=== PATIENT | female | born 1960 | race Caucasian/White ===

== ENCOUNTER 2017-11-18 16:26 | Emergency (ER) | payer OTHER, MEDICAID, SELFPAY ==
[2017-11-18 16:29] VITALS: BP 190/106; PULSE 93; RESP 16; TEMP 36.1; O2SAT 100; BMI 21.3
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
== END 2017-11-18 17:02 | disposition home or self-care (01) ==
PROVIDERS: Emergency Provider Nurse Practitioner; Family Provider Family Medicine; PCP Family Medicine
DX: Z71.1 Person with feared health complaint in whom no diagnosis is made (principal)
CPT/HCPCS: 99282

== ENCOUNTER → 2018-10-04 10:53 | Outpatient (CLI) | payer OTHER, MEDICAID, SELFPAY ==
--- NOTE | 2018-10-04 | DI.US.S_ITS ---
PROCEDURE: US ARTERIAL DUPLEX LE BI INDICATIONS: Bilateral leg pain, patient reports decreased pulses in the feet. TECHNIQUE: Color and pulse Doppler interrogation was performed of both lower extremity arterial systems, with image documentation. COMPARISON: [facility] [place], CR, XR FOOT 3+ VIEWS LEFT, 06/19/2018, 10:21. [facility], RG, XR FOOT 3V RIGHT, 07/28/2002, 10:39. FINDINGS: Right lower extremity: Common femoral artery: 128 cm/sec, with triphasic flow. Deep femoral artery: 72 cm/sec, with triphasic flow. Proximal superficial femoral artery: 97 cm/sec, with triphasic flow. Mid superficial femoral artery: 116 cm/sec, with triphasic flow. Distal superficial femoral artery: 66 cm/sec, with triphasic flow. Popliteal artery: Ranging from 78-100 cm/sec, with triphasic flow. Posterior tibial artery: Ranging from 93-109 cm/sec, with triphasic flow. Anterior tibial artery/dorsalis pedis: Ranging from 49-85 cm/sec, with triphasic flow. Bernal-scale imaging description: Mild calcific and soft plaque is seen through the right lower extremity arterial vasculature. No focal high-grade stenosis is found. Left lower extremity: Common femoral artery: 113 cm/sec, with triphasic flow. Deep femoral artery: 165 cm/sec, with triphasic flow. Proximal superficial femoral artery: 194 cm/sec, with triphasic flow. Mid superficial femoral artery: 104 cm/sec, with triphasic flow. Distal superficial femoral artery: 77 cm/sec, with triphasic flow. Popliteal artery: Ranging from 77-83 cm/sec, with triphasic flow. Posterior tibial artery: Ranging from 89-101 cm/sec, with triphasic flow. Anterior tibial artery/dorsalis pedis: Ranging from 48-75 cm/sec, with triphasic flow. Bernal-scale imaging description: Relatively mild calcific and soft plaque is seen throughout the left lower extremity arterial vasculature with focal stenosis causing elevated flow velocities at the proximal profunda femoris artery and also the proximal superficial femoral artery. IMPRESSION: Mild calcific and soft plaque within the lower extremity arterial vasculature bilaterally with focal stenosis producing elevated flow velocities at the profunda femoris artery and also the proximal superficial femoral artery on the left. Dictated by: Esau Pike M.D. on 10/06/2018 at 6:54 Approved by: Esau Pike M.D. on 10/06/2018 at 7:00
--- NOTE | 2018-10-04 | DI.RAD.S_ITS ---
PROCEDURE: XR CHEST 2V INDICATIONS: SHORTNESS OF BREATH TECHNIQUE: 2 views of the chest were acquired. COMPARISON: [facility], CHEST 2 VIEW, 03/29/2016, 19:21. [facility], CHEST 2 VIEW, 04/07/2012, 16:37. FINDINGS: Surgical changes and devices: None. Lungs and pleura: Lungs are clear. No pleural effusions or pneumothorax. Mediastinum: Mediastinal contours are normal. Heart size is normal. Bones and chest wall: No suspicious bony abnormalities. Soft tissues appear unremarkable. IMPRESSION: Normal for age, source of current shortness of breath symptoms is not seen. Dictated by: Esau Pike M.D. on 10/04/2018 at 12:20 Approved by: Esau Pike M.D. on 10/04/2018 at 12:20
== END ==
LOC: US 10:54 → RAD 10:56
PROVIDERS: PCP Student in an Organized Health Care Education/Training Program; Visit Provider Student in an Organized Health Care Education/Training Program
DX: I70.203 Unspecified atherosclerosis of native arteries of extremities, bilateral legs (principal); M79.605 Pain in left leg; M79.604 Pain in right leg; R06.02 Shortness of breath
CPT/HCPCS: 71046; 93925

== ENCOUNTER → 2018-10-16 08:39 | Outpatient (CLI) | payer OTHER, MEDICAID, SELFPAY ==
--- NOTE | 2018-10-16 | DI.US.S_ITS ---
PROCEDURE: US ABDOMEN COMPLETE INDICATIONS: RUQ PAIN TECHNIQUE: Real-time scanning was performed of the abdominal and retroperitoneal organs, with image documentation. COMPARISON: [facility], US, ABDOMEN COMPLETE, 07/30/2006, 17:16. FINDINGS: Liver: Liver is normal in size and homogeneous in echotexture. Gallbladder: No findings of gallstones or sludge are seen. The gallbladder wall is not thickened, measuring 3 mm or less. No specific pericholecystic fluid is seen. The sonographic Nguyen sign is negative. Biliary ducts: Intrahepatic bile ducts are non-dilated. Extrahepatic bile duct caliber measures 5 mm. Normal is 6-7 mm or less in diameter, or 10 mm or less post-cholecystectomy. Pancreas: Visualized portions of the pancreas are sonographically normal. Spleen: Spleen is normal in size and homogeneous in echotexture. An accessory spleen is incidentally noted. Kidneys: Kidneys are normal in size and echotexture. Right kidney measures 11.8 cm long; left kidney measures 11.1 cm long. No hydronephrosis or nephrolithiasis. No solid masses. Aorta: Visualized aorta is normal in caliber at less than 3 cm. Iliacs: Proximal common iliac arteries are normal in caliber at less than 2.5 cm. IVC: Intrahepatic inferior vena cava is patent. Miscellaneous: No free abdominal fluid. IMPRESSION: The gallbladder demonstrates a normal sonographic appearance. No biliary dilatation is seen. Dictated by: Isaac Zuniga M.D. on 10/16/2018 at 9:10 Approved by: Isaac Zuniga M.D. on 10/16/2018 at 9:11
== END ==
PROVIDERS: PCP Student in an Organized Health Care Education/Training Program; Visit Provider Student in an Organized Health Care Education/Training Program
DX: R10.11 Right upper quadrant pain (principal)
CPT/HCPCS: 76700

== ENCOUNTER 2018-12-31 17:23 | Emergency (ER) | payer OTHER, MEDICAID, SELFPAY ==
[2018-12-31 17:55] VITALS: BP 170/98; PULSE 95; RESP 16; TEMP 36.6; O2SAT 95; BMI 20.9
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
[2018-12-31] MEDS: TRAMADOL 50 MG PREPACK 1 BOTTLE MISC (21:19)
[2018-12-31 21:31] VITALS: BP 174/110; PULSE 92; RESP 18; O2SAT 97
--- NOTE | 2018-12-31 21:31 | PC.NURSE ---
Complains of right rib area pain. Pain worsens with deep breaths and movement. Patient splinting the area when moving around.
== END 2018-12-31 21:32 | disposition home or self-care (01) ==
PROVIDERS: Emergency Provider Emergency Medicine; PCP Student in an Organized Health Care Education/Training Program
DX: S22.41XA Multiple fractures of ribs, right side, initial encounter for closed fracture (principal); M54.89 Other dorsalgia; M25.511 Pain in right shoulder
CPT/HCPCS: 71101; 73000; 99282; 99283

== ENCOUNTER 2019-01-07 14:26 | Emergency (ER) | payer OTHER, MEDICAID, SELFPAY ==
[2019-01-07 14:35] VITALS: BP 186/107; PULSE 104; RESP 14; TEMP 36.1; O2SAT 97; BMI 20.9
--- NOTE | 2019-01-07 15:07 | DI.RAD.S_ITS ---
PROCEDURE: XR CLAVICLE RT INDICATIONS: pain for 3 weeks worse today TECHNIQUE: 2 views of the clavicle were acquired. COMPARISON: [facility], , XR CLAVICLE RT, 12/31/2018, 18:03. FINDINGS: Bones: No displaced fractures or dislocations are evident involving the right clavicle. There are [id number] degenerative changes of the right shoulder joint and imaged portions of the cervical spine, not well characterized. No widening of the acromioclavicular joint space is evident. Soft tissues: No suspicious soft tissue calcifications. IMPRESSION: No acute right clavicle fractures. Dictated by: Jovanni Monaco M.D. on 01/07/2019 at 14:36 Approved by: Jovanni Monaco M.D. on 01/07/2019 at 14:37
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
[2019-01-07 15:52] VITALS: BP 152/94; PULSE 84; O2SAT 98
== END 2019-01-07 15:53 | disposition home or self-care (01) ==
PROVIDERS: Emergency Provider Emergency Medicine; PCP Student in an Organized Health Care Education/Training Program
DX: M25.511 Pain in right shoulder (principal)
CPT/HCPCS: 73000; 99282; 99283

== ENCOUNTER → 2019-01-08 10:16 | Outpatient (CLI) | payer OTHER, MEDICAID, SELFPAY ==
--- NOTE | 2019-01-08 | DI.CT.S_ITS ---
PROCEDURE: CT ABDOMEN W CON INDICATIONS: Right upper quadrant pain TECHNIQUE: After the administration of oral and intravenous contrast, 5 mm thick sections acquired from the diaphragms to the iliac crests. 5 mm thick coronal and sagittal reformats were acquired. For radiation dose reduction, the following was used: automated exposure control, adjustment of mA and/or kV according to patient size. COMPARISON: Merged With [facility], CR, XR CLAVICLE RT, 01/07/2019, 15:13. Merged With [facility], CR, XR RIBS RT MIN 3V W CXR 1V, 12/31/2018, 18:03. Merged With [facility], CR, XR CLAVICLE RT, 12/31/2018, 18:03. FINDINGS: Image quality: Excellent. Lung bases: There is a 2 mm right middle lobe pulmonary nodule on axial image 2 of series 5. There is a 4 mm right lower lobe pulmonary nodule on axial image 4 of series 5. There is a 6 mm left lower lobe pulmonary nodule on axial image 4 of series 5. Solid organs: There is diffuse hypoattenuation with the liver margin demonstrating a mildly nodular contour. No cholelithiasis, pericholecystic fluid, or gallbladder wall thickening identified. No intrahepatic or intrahepatic ductal dilatation. There is a 1.5 x 1.0 cm mass in the jeannie hepatis between the gallbladder and portal vein on axial image 27 of series 2. Pancreatic parenchyma enhances within normal limits. There is a 1.0 cm splenule inferior to the spleen; the spleen is otherwise unremarkable. No adrenal nodules are identified. No hydronephrosis or solid renal masses are identified. No nephrolithiasis. Peritoneum and bowel: Imaged contrast enhanced bowel loops appear normal in caliber. No free fluid or air. The inferior cecum is low-lying within the pelvis and not fully included on the [id number] this exam. The appendix cannot clearly be identified on this exam. Nodes and vessels: No retroperitoneal or mesenteric adenopathy by size criteria. Aorta and inferior vena cava are normal in size. There is moderate calcified plaque of the abdominal aorta and branch vessels. Bones: There are partially imaged subacute fractures of the right fourth through sixth ribs with irregular sclerosis and periosteal reaction noted. The right fifth and sixth rib fractures were identified/described on comparison radiographs of 12/31/18. Calcified sequela of degenerative disease noted at T11-T12. Miscellaneous: No ventral hernias. IMPRESSION: 1. Subacute anterolateral right fourth through sixth rib fractures. 2. Diffuse hypoattenuation of the liver with mildly nodular liver contour, which may represent sequela of cirrhosis, steatosis, or hepatitis. Clinical correlation with liver function tests recommended. 3. A 1.5 x 1.0 cm mass in the jeannie hepatis is most consistent with a reactive jeannie hepatis lymph node, but a followup CT in 3-6 months versus MRI is recommended to demonstrate stability/resolution of this lesion and to exclude underlying malignancy. 4. Multiple bilateral pulmonary nodules, largest measuring 6 mm in the left lower lobe. Recommend followup CT scan in 3-6 months to demonstrate stability of these nodules. 5. The inferior cecum is low-lying within the pelvis and was not included on the [id number] of this exam, and the appendix cannot be clearly identified on this exam; as such, appendicitis cannot be excluded by this abdominal CT exam. Dictated by: Otis Murillo M.D. on 01/08/2019 at 14:33 Approved by: Otis Murillo M.D. on 01/08/2019 at 15:20
== END ==
PROVIDERS: PCP Student in an Organized Health Care Education/Training Program; Visit Provider Student in an Organized Health Care Education/Training Program
DX: R10.11 Right upper quadrant pain (principal); K76.9 Liver disease, unspecified; S22.41XA Multiple fractures of ribs, right side, initial encounter for closed fracture; R91.8 Other nonspecific abnormal finding of lung field
CPT/HCPCS: 74160; Q9967

== ENCOUNTER 2019-03-14 18:27 | Emergency (ER) | payer OTHER, MEDICAID, SELFPAY ==
[2019-03-14 18:37] VITALS: BP 155/101; PULSE 91; RESP 14; TEMP 36.8; O2SAT 98; BMI 22.1
--- NOTE | 2019-03-14 18:55 | ED.GENADULT ---
HPI - General Adult <JILL Box - Last Filed: 03/14/19 23:40> General Chief complaint: Environmental Exposure Stated complaint: LIGHT HEADED DIZZY WAS AROUND EXHAUST SMELL ALL DA Time Seen by Provider: 03/14/19 18:50 Source: patient Mode of arrival: Ambulatory Limitations: no limitations History of Present Illness HPI narrative: This is a 58-year-old female, smoker, who presents to ED with chief complain of generalized weakness, nausea, dizziness, feeling tired, photophobia and ongoing headache. She contributes today's headache to carbon monoxide exposure at work. She works at [employer] for last 3 years and they're working on exhaust today. Patient reports she has history of migraine and tension headache. She was recently given sumatriptan by her primary care physician for ongoing headache for last 1.5 years. Patient reports usually her migraine headache is more sporadic and improves when she takes aspirin. The location of headache is temporal to temporal and in the frontal area which radiating to behind her eyes. Patient reports blurred vision and states had eye evaluation 2 years ago. Patient has been seen by Dr. Mendez recently and has head CT with and without contrast ordered and is planning to f/u with this next week. Patient denies weakness to limb, speech difficulty, difficulty with swallowing. Patient denies fever, chills, vomiting, unusual rashes or nuchal rigidity. Related Data Home Medications Medication Instructions Recorded Confirmed Vitamins Misc. 1 dose PO DAILY 01/07/19 03/07/19 albuterol sulfate [ProAir HFA] 1 - 2 puff INHALATION Q4H PRN 01/07/19 03/07/19 escitalopram oxalate 10 mg PO DAILY 01/07/19 03/07/19 Previous Rx's Medication Instructions Recorded sumatriptan succinate 50 mg tablet See Rx Instructions PO .COMPLEX 03/07/19 #20 tab Allergies Allergy/AdvReac Type Severity Reaction Status Date / Time procaine [From NOVOCAIN] Allergy Mild RASH Verified 03/14/19 18:37 Review of Systems <JILL Box - Last Filed: 03/14/19 23:40> Review of Systems Narrative: General: Denies fever, chills, (+) fatigue, (+) malaise, sweats. HEENT: Denies sinus pain, ear pain, sore throat, difficulty swallowing, (+) dizziness. Respiratory: Denies dyspnea, cough, wheezing, hemoptysis, sputum. Cardiovascular: Denies chest pain, palpitations, orthopnea, edema. Gastrointestinal: Denies (+) nausea, vomiting, abdominal pain, diarrhea, constipation, melena. : Denies dysuria, frequency, incontinence, hematuria, urinary retention. Musculoskeletal: Denies weakness, joint pain or bony pain. Skin: Denies rash, skin lesions, or other. Neurologic: Denies weakness, (+) headache, numbness, change in speech, confusion, seizures, incoordination. Psychiatric: No concerning psychosocial issues. 12-point review of systems is negative except for those stated above. Patient History <JILL Box - Last Filed: 03/14/19 23:40> Medical History Allergies (Chronic) Anxiety (Chronic) Cervical somatic dysfunction (Acute) Chicken pox (Resolved) Chronic neck and back pain (Acute) Circulation problem (Acute) Cranial somatic dysfunction (Acute) Depression (Chronic) Family history of cerebral aneurysm (Acute) Foot pain (Chronic) Headache (Chronic) No acute medical problems (Acute) Panic anxiety syndrome (Acute) Pelvic somatic dysfunction (Acute) Segmental and somatic dysfunction of abdomen and other regions (Acute) Segmental and somatic dysfunction of lumbar region (Acute) Segmental and somatic dysfunction of thoracic region (Acute) Shoulder pain (Chronic) Skin problem (Chronic) Somatic dysfunction of sacral spine (Acute) Tension headache, chronic (Acute) Tension headache, chronic (Acute) Tobacco abuse disorder (Acute) Vision disorder (Chronic) Surgical History H/O tubal ligation (Acute) Hx of tonsillectomy (Acute) No significant past surgical history (Acute) Family History Father No problems noted. Mother Pneumonia Social History Smoking Status: Current every day smoker Smoking Status: Current every day smoker alcohol intake frequency: holidays/special occasions only Substance Use Type: marijuana and methamphetamine Exam <ARABELLA BoxP - Last Filed: 03/14/19 23:40> Narrative Exam Narrative: GEN: Alert, oriented x 3, well appearing and nourished, and in no acute distress. Head: Normal cephalic, atraumatic. No scalp or temporal tenderness, palpable mass or rash. EYES: Pupils are equal, round, and reactive to light and accommodation. Extraocular muscles are intact bilaterally. There is no subconjunctival hemorrhage, exudate and sclera non-icteric. ENT: Left auditory canals partially obscured with cerumen. Right tympanic membranes clear. Hearing grossly intact. Nose without bleeding, purulent discharge or deviation. Facial sinuses nontender to palpate. Mucous membrane moist, no mucosal lesion. Throat without erythema, tonsillar hypertrophy or exudate. Uvula in midline, airway patent. Neck: Trachea in midline. No JVD, non-tender without lymphadenopathy. No masses or thyroid megaly. Supple, non-tender and no meningeal signs. CARDIAC: Normal regular rate and rhythm without murmurs, gallops, or rubs. No chest wall tenderness. No peripheral edema, cyanosis or pallor. Capillary refill is less than 2 seconds. RESPIRATORY: Lungs are clear to auscultate bilaterally. No cough, wheezes, rales, or rhonchi. No stridor, respiratory distress, increase work of breathing, or accessary muscle used. ABD: Abdomen soft, nontender and non-distended. No guarding or rebound tenderness to palpate. Bowel sounds are normal in all 4 quadrants. There is no palpable masses or organomegaly. EXT: Full painless ROM of all extremities with no loss of sensation, strength, effusion or edema. SKIN: Warm, dry, normal color for patient. No erythema, lesions or rash over visible areas. BACK: Nontender without deformity or crepitance. No flank tenderness. NEUROLOGICAL: Alert and oriented to place, time and person. Sensation and motor function intact bilaterally. No facial droops, dysphasia. PSYCHIATRIC: Good judgement and reason, without hallucinations, abnormal affect or abnormal behaviors during the examination. Initial Vital Signs Initial Vital Signs: Vital Signs Temperature 98.3 F 03/14/19 18:37 Pulse Rate 91 H 03/14/19 18:37 Respiratory Rate 14 03/14/19 18:37 Blood Pressure 155/101 H 03/14/19 18:37 Pulse Oximetry 98 03/14/19 18:37 <Frank Jimenez DO - Last Filed: 03/14/19 23:48> Initial Vital Signs Initial Vital Signs: Vital Signs Temperature 98.3 F 03/14/19 18:37 Pulse Rate 91 H 03/14/19 18:37 Respiratory Rate 14 03/14/19 18:37 Blood Pressure 155/101 H 03/14/19 18:37 Pulse Oximetry 98 03/14/19 18:37 Scores <JILL Box - Last Filed: 03/14/19 23:40> GCS [place] coma scale eye opening: Spontaneous Nolberto coma scale verbal response: Orientated Nolberto coma scale motor response: Obey commands [place] coma scale total score: 15 NIH Stroke Scale Level of Conciousness: Alert, keenly responsive Ask month/age: Answers both questions correctly. Best gaze horizontal: Normal Visual watson: No visual loss Facial palsy: Normal symetrical movement Left arm drift: No drift for full 10 sec Right arm drift: No drift for full 10 sec Left leg drift: No drift for full 10 sec Right leg drift: No drift for full 10 sec Limb ataxia: Absent Sensory on face/arms/legs: Normal, no sensory loss Best language: No aphasia, normal Dysarthria: Normal Extinction or inattention: No abnormality Course <JILL Box - Last Filed: 03/14/19 23:40> Orders Ordered: ED Orders 03/14/19 19:50 Basic Metabolic Panel Stat Complete Blood Count AUTO DIFF Stat Discontinued Medications Diphenhydramine HCl (Benadryl) 25 mg IV NOW ONE Stop: 03/14/19 19:23 Last Admin: 03/14/19 19:54 Dose: 25 mg Documented by: LOLA Sodium Chloride (Normal Saline 0.9%) 1,000 mls @ 1,000 mls/hr IV BOLUS ONE Stop: 03/14/19 20:21 Last Infusion: 03/14/19 21:22 Dose: 0 mls/hr Documented by: Admin: 03/14/19 19:53 Dose: 1,000 mls/hr Documented by: LOLA Ketorolac Tromethamine (Toradol) 30 mg IV NOW ONE Stop: 03/14/19 19:23 Last Admin: 03/14/19 19:54 Dose: 30 mg Documented by: LOLA Metoclopramide HCl (Reglan) 10 mg IV NOW ONE Stop: 03/14/19 19:23 Last Admin: 03/14/19 19:54 Dose: 10 mg Documented by: LOLA Potassium Chloride (Klor-Con M20) 20 meq PO NOW ONE Stop: 03/14/19 21:12 Last Admin: 03/14/19 21:21 Dose: 20 meq Documented by: TACOS Vital Signs Vital signs: Vital Signs - 8 hr 03/14/19 18:37 03/14/19 21:01 03/14/19 21:35 Temperature 98.3 F Pulse Rate 91 H 68 65 Respiratory Rate 14 15 Blood Pressure 155/101 H 143/83 H Blood Pressure [Left Arm] 146/81 H Pulse Oximetry 98 99 100 <Frank Jimenez DO - Last Filed: 03/14/19 23:48> Orders Ordered: ED Orders 03/14/19 19:50 Basic Metabolic Panel Stat Complete Blood Count AUTO DIFF Stat Discontinued Medications Diphenhydramine HCl (Benadryl) 25 mg IV NOW ONE Stop: 03/14/19 19:23 Last Admin: 03/14/19 19:54 Dose: 25 mg Documented by: LOLA Sodium Chloride (Normal Saline 0.9%) 1,000 mls @ 1,000 mls/hr IV BOLUS ONE Stop: 03/14/19 20:21 Last Infusion: 03/14/19 21:22 Dose: 0 mls/hr Documented by: Admin: 03/14/19 19:53 Dose: 1,000 mls/hr Documented by: LOLA Ketorolac Tromethamine (Toradol) 30 mg IV NOW ONE Stop: 03/14/19 19:23 Last Admin: 03/14/19 19:54 Dose: 30 mg Documented by: LOLA Metoclopramide HCl (Reglan) 10 mg IV NOW ONE Stop: 03/14/19 19:23 Last Admin: 03/14/19 19:54 Dose: 10 mg Documented by: LOLA Potassium Chloride (Klor-Con M20) 20 meq PO NOW ONE Stop: 03/14/19 21:12 Last Admin: 03/14/19 21:21 Dose: 20 meq Documented by: TACOS Vital Signs Vital signs: Vital Signs - 8 hr 03/14/19 18:37 03/14/19 21:01 03/14/19 21:35 Temperature 98.3 F Pulse Rate 91 H 68 65 Respiratory Rate 14 15 Blood Pressure 155/101 H 143/83 H Blood Pressure [Left Arm] 146/81 H Pulse Oximetry 98 99 100 Medical Decision Making <JILL Box - Last Filed: 03/14/19 23:40> Differential Diagnosis Differential Diagnosis: Migraine headache, tension headache, electrolyte imbalance, anemia, dehydra Medical Records Medical records reviewed: Yes I reviewed the patient's medical records. Lab Data Lab results reviewed: Yes I reviewed the patient's lab results. Result diagrams: 03/14/19 19:50 03/14/19 19:50 Labs: Lab Results 03/14/19 03/14/19 Range/Units 19:50 19:50 WBC 7.7 (4.5-11.0) X10^3/uL RBC 4.83 (4.0-5.2) X10^6/uL Hgb 16.2 H (12.0-16.0) g/dL Hct 45.5 (36-46) % MCV 94.2 (80-100) fL MCH 33.6 (26-34) PG MCHC 35.7 (30-36) % RDW 12.4 (11.6-14.8) % Plt Count 156 (150-400) X10^3/uL Neut % (Auto) 53.6 (50-75) % Lymph % (Auto) 36.4 (25-40) % Isabella % (Auto) 8.0 (3-14) % Eos % (Auto) 1.3 L (2-4) % Baso % (Auto) 0.7 (0-2) % Neut # (Auto) 4100 (5758-3337) /uL Lymph # (Auto) 2800 (9427-2465) /uL Isabella # (Auto) 600 (0-900) /uL Eos # (Auto) 100 (0-450) /uL Baso # (Auto) 100 (0-100) /uL Sodium 138 (137-145) mmol/L Potassium 3.3 L (3.4-5.1) mmol/L Chloride 104 (98-107) mmol/L Carbon Dioxide 24 (22-32) mmol/L BUN 20 H (7-17) mg/dL Creatinine 0.50 L (0.52-1.04) mg/dL Estimated GFR > 60.0 (>60) mL/min BUN/Creatinine Ratio 40.0 H (6-22) Glucose 127 H (70-100) mg/dL Calcium 9.6 (8.4-10.2) mg/dL MDM Narrative Medical decision making narrative: This is 58 year female who presents to ED with headache, weakness, dizziness, nausea. Patient has history of migraine and tension headache however which has been more frequent and difficult to manage with [id number] oral medication. Head CT with and without contrast has been ordered by her PCP which will be arranged to be done this week. Neuro exam was normal. Patient is afebrile with with normal vital sign. CBC was unremarkable. Today's potassium was mildly decreased to 3.3 and replaced by 20 mEq KCL p.o.. Today's BUN and BUN/creatinine ratio was elevated indicating patient is likely dehydrated. Patient was treated with IV fluid, IV medications-Toradol, Benadryl and Reglan which resolved her headache and nausea. Patient advised to follow with CT scan of her head as scheduled and deferred at this time since patient does not have severe or changes in her headache. CO pulse monitor was 1 (considered negative). Patient had field L&I document, patient informed this probably is not related to carbon monoxide exposure with normal CO monitor. Return precautions were discussed with the patient and patient verbalized understand and agrees with the treatment plan. <Frank Jimenez, - Last Filed: 03/14/19 23:48> Lab Data Labs: Lab Results 03/14/19 03/14/19 Range/Units 19:50 19:50 WBC 7.7 (4.5-11.0) X10^3/uL RBC 4.83 (4.0-5.2) X10^6/uL Hgb 16.2 H (12.0-16.0) g/dL Hct 45.5 (36-46) % MCV 94.2 (80-100) fL MCH 33.6 (26-34) PG MCHC 35.7 (30-36) % RDW 12.4 (11.6-14.8) % Plt Count 156 (150-400) X10^3/uL Neut % (Auto) 53.6 (50-75) % Lymph % (Auto) 36.4 (25-40) % Isabella % (Auto) 8.0 (3-14) % Eos % (Auto) 1.3 L (2-4) % Baso % (Auto) 0.7 (0-2) % Neut # (Auto) 4100 (8083-5131) /uL Lymph # (Auto) 2800 (6174-5166) /uL Isabella # (Auto) 600 (0-900) /uL Eos # (Auto) 100 (0-450) /uL Baso # (Auto) 100 (0-100) /uL Sodium 138 (137-145) mmol/L Potassium 3.3 L (3.4-5.1) mmol/L Chloride 104 (98-107) mmol/L Carbon Dioxide 24 (22-32) mmol/L BUN 20 H (7-17) mg/dL Creatinine 0.50 L (0.52-1.04) mg/dL Estimated GFR > 60.0 (>60) mL/min BUN/Creatinine Ratio 40.0 H (6-22) Glucose 127 H (70-100) mg/dL Calcium 9.6 (8.4-10.2) mg/dL Discharge Plan Departure Patient Disposition: Home Clinical Impression: Generalized weakness, Hypokalemia Headache Qualifiers: Headache type: unspecified Headache chronicity pattern: unspecified pattern Intractability: not intractable Qualified Code(s): R51 - Headache Discharge Date/Time: 03/14/19 21:36 Activity Restrictions/Additional Instructions: You have been diagnosed with [headache, generalized weakness and low potassium. Her potassium level today was 3.3 and lab tests indicates mild dehydration. Carbon monoxide test was 1 which is normal]. What to do: *Take your medications as directed. You were treated with IV fluid, IV medications such as Toradol, Benadryl and Reglan which helped your headache. You can continue to take [id number] Tylenol and or Motrin as needed for discomfort. Please take food with Motrin to decreased GI irritation and ulcer. Also sumatriptan as needed for headache as this has been prescribed by your primary care physician. *Follow up with your primary care provider in 2-3 days, call for an appointment. Let them know you were seen in the ED and that we asked you to be seen in follow up. Please continue with your CT for head with and without contrast as planned this coming week. Please hydrate herself adequately with water and sports drink. *Return to ED if you have any new, worsening, or concerning symptoms, such as [chest pain, breathing difficulty, unable to tolerate fluids, increasing weakness or any other acute concerns]. Prescriptions: No Action sumatriptan succinate 50 mg tablet See Rx Instructions PO .COMPLEX Qty: 20 RF: 2 albuterol sulfate [ProAir HFA] 90 mcg/actuation HFA aerosol inhaler 1 - 2 puff INHALATION Q4H PRN (Reason: Shortness Of Breath) RF: 0 escitalopram oxalate 10 mg tablet 10 mg PO DAILY RF: 0 Vitamins Misc. 1 dose PO DAILY RF: 0 Referrals: Teddy Mendez DO [Primary Care Provider] - <Frank Jimenez DO - Last Filed: 03/14/19 23:48> Sign Out Provider Sign Out Attestation: Dr Jimenez Co-Sign Statement: I was available for consultation during this patient's emergency department visit. This chart is signed by myself for administrative purposes only. I did not have direct contact with this patient during this visit. They were seen independently by the APC.
[2019-03-14] MEDS: SODIUM CHLORIDE 0.9% 1,000 ML 1000 ML IV (19:53)
[2019-03-14] MEDS: METOCLOPRAMIDE 10 MG/2 ML INJ IV (19:54)
[2019-03-14] MEDS: KETOROLAC 60 MG/2 ML VIAL 30 MG IV (19:54)
[2019-03-14] MEDS: diphenhydrAMINE 50 MG/ML VIAL 25 MG IV (19:54)
[2019-03-14 19:56] LABS: Add Manual Diff / Slide Review NO; Basophils Absolute Auto 100 /uL (0-100); Basophils Percent Auto 0.7 % (0-2); Eosinophils Absolute Auto 100 /uL (0-450); Eosinophils Percent Auto 1.3 % (2-4); Hematocrit 45.5 % (36-46); Hemoglobin 16.2 g/dL (12.0-16.0); Lymphocytes Absolute Auto 2800 /uL (1100-4500); Lymphocytes Percent Auto 36.4 % (25-40); Mean Corpuscular HGB Conc 35.7 % (30-36); Mean Corpuscular Hemoglobin 33.6 PG (26-34); Mean Corpuscular Volume 94.2 fL (80-100); Monocytes Absolute Auto 600 /uL (0-900); Neutrophils Absolute Auto 4100 /uL (1500-7000); Neutrophils Percent Auto 53.6 % (50-75); Platelet Count 156 X10^3/uL (150-400); Red Blood Cell Count 4.83 X10^6/uL (4.0-5.2); Red Cell Distribution Width 12.4 % (11.6-14.8); White Blood Cell Count 7.7 X10^3/uL (4.5-11.0)
[2019-03-14 20:10] LABS: Blood Urea Nitrogen 20 mg/dL (7-17); Calcium 9.6 mg/dL (8.4-10.2); Carbon Dioxide 24 mmol/L (22-32); Chloride 104 mmol/L (98-107); Estimated Glomerular Filt Rate > 60.0 mL/min (>60); Glucose 127 mg/dL (70-100); HEMOLYSIS < 15 (0-50); Potassium 3.3 mmol/L (3.4-5.1); Sodium 138 mmol/L (137-145)
[2019-03-14 21:01] VITALS: BP 146/81; PULSE 68; O2SAT 99
[2019-03-14] MEDS: POTASSIUM CHLORIDE 20 MEQ TAB PO (21:21)
[2019-03-14 21:35] VITALS: BP 143/83; PULSE 65; RESP 15; O2SAT 100
== END 2019-03-14 21:36 | disposition home or self-care (01) ==
PROVIDERS: Emergency Provider Nurse Practitioner Family; PCP Family Medicine
DX: R53.1 Weakness (principal); E87.6 Hypokalemia; R51 Headache; Y99.0 Civilian activity done for income or pay
CPT/HCPCS: 36415; 80048; 85025; 96361; 96374; 96375; 99284; J1200; J1885; J2765

== ENCOUNTER → 2019-04-03 14:21 | Outpatient (CLI) | payer OTHER, MEDICAID, SELFPAY ==
--- NOTE | 2019-04-03 14:25 | DI.CT.S_ITS ---
PROCEDURE: CT HEAD/BRAIN WO/W CON INDICATIONS: Toxic effect of carbon monoxide from unspecified source TECHNIQUE: 4.5 mm thick angled axial sections acquired from the foramen magnum to the vertex before and after the administration of intravenous contrast, with coronal and sagittal reformats. For radiation dose reduction, the following was used: automated exposure control, adjustment of mA and/or kV according to patient size. COMPARISON: None. FINDINGS: Image quality: Excellent. CSF Spaces: Basal cisterns are patent. No extra-axial fluid collections. Ventricles are normal in size and shape. Brain: No midline shift. No intracranial bleeds or masses. No abnormal intracranial enhancement. Bernal-white interface appears normal. Skull and face: Calvarium and visualized facial bones appear intact, without suspicious lesions. Sinuses: There is moderate mucosal thickening seen involving the left maxillary sinus. The paranasal sinuses elsewhere are within normal limits. No abnormal fluid is seen within the mastoid air cells. IMPRESSION: No significant abnormality can be seen on this study the brain performed without and with IV contrast. Dictated by: Isaac Zuniga M.D. on 04/03/2019 at 14:48 Approved by: Isaac Zuniga M.D. on 04/03/2019 at 14:49
== END ==
PROVIDERS: PCP Family Medicine; Referring Provider Family Medicine; Visit Provider Family Medicine
DX: T58.91XA Toxic effect of carbon monoxide from unspecified source, accidental (unintentional), initial encounter (principal); G43.909 Migraine, unspecified, not intractable, without status migrainosus; Z82.49 Family history of ischemic heart disease and other diseases of the circulatory system
CPT/HCPCS: 70470; Q9967

== ENCOUNTER → 2019-04-21 18:08 | Outpatient (CLI) | payer OTHER, MEDICAID, SELFPAY ==
[2019-04-21 19:04] LABS: Influenza A - CEPHEID Flu A NEGATIVE (NEGATIVE); Influenza B - CEPHEID Flu B NEGATIVE (NEGATIVE)
== END ==
PROVIDERS: PCP Family Medicine; Visit Provider Physician Assistant
DX: R68.89 Other general symptoms and signs (principal)
CPT/HCPCS: 87502

== ENCOUNTER 2019-05-08 10:41 | Outpatient (RCR) | payer OTHER, MEDICAID, SELFPAY ==
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
--- NOTE | 2019-06-19 09:36 | PT-OP ANOTE ---
Per telephone conversation, pt was notified of reopening the clinic soon while following CDC guidelines. Discussed rules for social distancing, wearing of mask and hand washing, & limiting number of patients and PT?s in open areas. Pt is agreeable to receive a call to be be placed on a schedule for the future. Pt would like a HEP at next visit.
--- NOTE | 2019-07-03 13:18 | PT-OP ANOTE ---
Pt No showed for appt. Message was left by front office staff that pt could reschedule one more time if she calls back.
--- NOTE | 2019-09-30 09:11 | PT-OP ANOTE ---
PT leaves message for pt regarding PT POC. PT leaves clinic phone number and asks pt to call back to communicate pt intentions. PT communicated that if we do not hear by Sunday, will d/c PT at this time and pt can follow-up with doctor for new order if wishes to con't PT in the future.
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
== END 2019-11-07 14:17 ==
LOC: PHYS 10:41
PROVIDERS: PCP Family Medicine; Referring Provider Family Medicine; Visit Provider Family Medicine
DX: M54.9 Dorsalgia, unspecified (principal); G89.29 Other chronic pain; G44.229 Chronic tension-type headache, not intractable; M54.2 Cervicalgia
CPT/HCPCS: 97162

== ENCOUNTER 2019-07-19 22:41 | Emergency (ER) | payer OTHER, MEDICAID, SELFPAY ==
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
[2019-07-19 22:51] VITALS: BP 191/96; PULSE 94; RESP 19; TEMP 36.3; O2SAT 99; BMI 20.9
[2019-07-19] MEDS: AMOXICILLIN/CLAV 875/125 MG 1 TAB PO (23:12)
[2019-07-19 23:37] VITALS: BP 144/84; PULSE 84; RESP 16; O2SAT 100
[2019-07-19 23:38] LABS: Bilirubin Urine UA NEGATIVE (NEGATIVE); Glucose Urine UA NEGATIVE (Negative); Ketones Urine UA NEGATIVE (NEGATIVE); Leukocyte Esterase Urine UA 2+ (NEGATIVE); Nitrite Urine UA POSITIVE (Negative); Occult Blood Urine UA 1+ (Negative); Protein Urine UA TRACE (Negative); Urobilinogen Urine UA >=8.0 E.U./dL (0.2)
[2019-07-19 23:47] LABS: pH Urine UA 6.5 (4.5-8.0)
[2019-07-19 23:48] LABS: Appearance Urine UA CLOUDY; Bacteria Urine Many (>30); Color Urine UA Dark Yellow; Culture Indicated Urine Specimen Cultured; RBC Urine 0-1/HPF (0-5/HPF); Squamous Epithelial Cell Urine 0-1 /HPF (0-5/HPF); WBC Urine 10-30/HPF (0-5/HPF)
== END 2019-07-19 23:45 | disposition home or self-care (01) ==
PROVIDERS: Emergency Provider Emergency Medicine; PCP Family Medicine
DX: L03.116 Cellulitis of left lower limb (principal); W64.XXXA Exposure to other animate mechanical forces, initial encounter
CPT/HCPCS: 81001; 81003; 87077; 87086; 87186; 99283

== ENCOUNTER → 2020-01-11 15:57 | Outpatient (CLI) | payer OTHER, MEDICAID, SELFPAY ==
[2020-01-11 16:20] LABS: COVID19 -Nasal RAPID Negative (Negative)
== END ==
PROVIDERS: PCP Family Medicine; Visit Provider Physician Assistant
DX: Z11.59 Encounter for screening for other viral diseases (principal)
CPT/HCPCS: 87635

== ENCOUNTER 2020-09-13 10:49 | Emergency (ER) | payer OTHER, MEDICAID, SELFPAY ==
[2020-09-13 11:12] VITALS: BP 165/87; PULSE 94; RESP 14; TEMP 36.4; O2SAT 100
[2020-09-13 13:30] VITALS: BP 171/96; PULSE 82; RESP 18; O2SAT 100
--- NOTE | 2020-09-13 13:35 | ED_ITS ---
HPI - Skin/Abscess/Foreign Bdy General Chief complaint: Skin/Abscess/Foreign Body Stated complaint: left foot was bitten by something, swelling Time Seen by Provider: 09/13/20 13:31 Source: patient Mode of arrival: Ambulatory Limitations: no limitations History of Present Illness HPI narrative: 60-year-old female smoker with history of prior skin infections presents for evaluation of pain, redness and swelling on the dorsum of her left foot over the past 24 hours. She states she has some pain with ambulation but improvement with rest. She denies any red streaks or systemic findings such as fever, chills nor nausea or vomiting. She is otherwise well and free of complaint. She denies any injury, recent travel or history of clot. Related Data Home Medications Medication Instructions Recorded Confirmed Vitamins Misc. 1 dose PO DAILY 01/07/19 01/11/20 albuterol sulfate 90 mcg/actuation 1 - 2 puff INHALATION Q4H PRN 01/07/19 aerosol inhaler (ProAir HFA) escitalopram oxalate 10 mg tablet 10 mg PO DAILY 01/07/19 01/11/20 Previous Rx's Medication Instructions Recorded sumatriptan succinate 50 mg tablet See Rx Instructions PO .COMPLEX 03/07/19 #20 tab doxycycline hyclate 100 mg tablet 100 mg PO BID #20 tab 09/13/20 Allergies Allergy/AdvReac Type Severity Reaction Status Date / Time procaine [From NOVOCAIN] Allergy Mild RASH Verified 09/13/20 11:16 Review of Systems Review of Systems Narrative: GENERAL: Denies chills, fatigue, malaise, fever, sweats. HEENT: Denies sinus pain, ear pain, sore throat, difficulty swallowing, dizziness. RESPIRATORY: Denies dyspnea, cough, wheezing, hemoptysis, sputum. CARDIOVASCULAR: Denies chest pain, palpitations, orthopnea, edema, GASTROINTESTINAL: Denies nausea, vomiting, abdominal pain, diarrhea, constipa tion, melena. : Denies dysuria, frequency, incontinence, hematuria, urinary retention. MUSCULOSKELETAL: denies weakness, joint pain, or bony pain SKIN: See HPI NEUROLOGIC: Denies weakness, headache, numbness, change in speech, confusion, seizures, incoordination. PSYCHIATRIC: No concerning psychosocial issues. 12 point review of systems is negative except for those stated above Patient History Medical History Allergies Anxiety Carbon monoxide exposure Cervical somatic dysfunction Chicken pox Chronic neck and back pain Circulation problem Cranial somatic dysfunction Depression Family history of cerebral aneurysm Foot pain Headache Hepatitis A Hepatitis C Panic anxiety syndrome Pelvic somatic dysfunction Right anterior knee pain Segmental and somatic dysfunction of abdomen and other regions Segmental and somatic dysfunction of lumbar region Segmental and somatic dysfunction of thoracic region Shoulder pain Sinusitis Skin problem Somatic dysfunction of sacral spine Tension headache, chronic Tobacco abuse disorder Vision disorder Surgical History H/O tubal ligation Hx of tonsillectomy No significant past surgical history Family History Father No problems noted. Mother Pneumonia Social History Smoking Status: Current every day smoker Smoking Status: Current every day smoker alcohol intake frequency: holidays/special occasions only Substance Use Type: marijuana and methamphetamine Exam Narrative Exam Narrative: GEN: AOx3 and in mild distress EYES: Pupils are equal, round, and reactive to light and accommodation. E xtraoccular muscles are intact bilaterally. There is no subconjunctival hemorrhage or exudate. CHEST: Lungs are clear to auscultation bilaterally and free of wheezes, rales, or rhonchi. Heart rate is regular rhythm, there are no murmurs, clicks, rubs, or gallops. There is no chest wall tenderness. ABD: Abdomen is soft and nontender. There is no guarding or rebound. Bowel sounds are normal in all 4 quadrants. There is no mass or organomegaly. EXT: Full painless ROM of all extremities with no loss of sensation or strength. SKIN: Dorsum of left foot with erythema and some warmth, no fluctuation or induration. No drainage, low lymphangitis. Initial Vital Signs Initial Vital Signs: Vital Signs Temperature 97.6 F 09/13/20 11:12 Pulse Rate 94 H 09/13/20 11:12 Respiratory Rate 14 09/13/20 11:12 Blood Pressure 165/87 H 09/13/20 11:12 Pulse Oximetry 100 09/13/20 11:12 Course Vital Signs Vital signs: Vital Signs - 8 hr 09/13/20 11:12 Temperature 97.6 F Pulse Rate 94 H Respiratory Rate 14 Blood Pressure 165/87 H Pulse Oximetry 100 MDM - Skin/Abscess/Foreign Bdy MDM Narrative Medical decision making narrative: Patient is resting comfortably with reassuring vital signs. No signs of sepsis. No indication for incision and drainage. Other diagnoses such as orthopedic injury and DVT considered but thought unlikely given her history and physical exam. Return precautions given and questions answered to her apparent satisfaction. Discharge Plan Departure Patient Disposition: Home Clinical Impression: Cellulitis of foot, left Instructions: DI for Cellulitis -- Adult Activity Restrictions/Additional Instructions: *You have been diagnosed with [cellulitis of left foot] *What to do: *Please continue to take your regular medications as directed. [ x] New medication prescriptions sent to your pharmacy: [[facility]] [ ] New medication written as a paper prescription [ ] No new medications given *Please follow up with your primary care provider in 2-3 days, call for an appointment. Let them know you were seen in the Emergency Department and that we ask that you be seen in follow up. We will electronically transmit a record of today's note if your PCP is in our system *If you do not have a primary care provider please contact the [facility] Resource line at [phone]. They will ask some questions about your medical history and help get you set up with a doctor in the community. *Return to Emergency Department if you should have any new, worsening or concerning symptoms, such as [fever greater than 101 F, shaking chills, worsening pain, persistent vomiting or other bothersome symptoms] Prescriptions: New doxycycline hyclate 100 mg tablet 100 mg PO BID Qty: 20 RF: 0 No Action sumatriptan succinate 50 mg tablet See Rx Instructions PO .COMPLEX Qty: 20 RF: 2 albuterol sulfate [ProAir HFA] 90 mcg/actuation HFA aerosol inhaler 1 - 2 puff INHALATION Q4H PRN (Reason: Shortness Of Breath) RF: 0 escitalopram oxalate 10 mg tablet 10 mg PO DAILY RF: 0 Vitamins Misc. 1 dose PO DAILY RF: 0 Referrals: Teddy Mendez DO [Primary Care Provider] - Stand Alone Forms: Work Release Note
[2020-09-13 13:59] VITALS: BP 171/96; PULSE 84; RESP 16; O2SAT 97
== END 2020-09-13 14:01 | disposition home or self-care (01) ==
PROVIDERS: Emergency Provider Emergency Medicine; PCP Family Medicine
DX: L03.116 Cellulitis of left lower limb (principal)
CPT/HCPCS: 99281

== ENCOUNTER 2020-09-16 21:26 | Emergency (ER) | payer OTHER, MEDICAID, SELFPAY ==
[2020-09-16 22:05] VITALS: BP 194/102; PULSE 79; RESP 18; TEMP 36.7; O2SAT 99; BMI 21.7
--- NOTE | 2020-09-16 22:11 | DI.RAD.S_ITS ---
PROCEDURE: XR FOOT LT MIN 3V INDICATIONS: Increased swelling and injury to left foot. TECHNIQUE: 3 views of the foot were acquired. COMPARISON: None. FINDINGS: Bones: No fractures or dislocations. No suspicious bony lesions. Moderate 1st MTP joint degeneration. Prominent 1st metatarsal osseous bunion with overlying soft tissue swelling. There is also soft tissue swelling in the region of the 5th metatarsal head. Hallux valgus appearance although weight-bearing views would be more specific. Soft tissues: There is dorsal forefoot soft tissue swelling. IMPRESSION: No fracture No focal osseous destruction to suggest advanced osteomyelitis. If there is persistent clinical concern, continued short interval radiographic followup or contrast enhanced MRI could be performed to assess for early infection. Hallux valgus. Prominent osseous bunion at the 1st metatarsal head. Overlying soft tissue swelling. Lateral soft tissue swelling at the level of the 5th metatarsal head. Dictated by: Marlon Frias M.D. on 09/17/2020 at 8:55 Approved by: Marlon Frias M.D. on 09/17/2020 at 9:00
--- NOTE | 2020-09-16 23:15 | DI.RAD.S_ITS ---
PROCEDURE: XR CHEST 1V INDICATIONS: suspected sepsis TECHNIQUE: One view of the chest was acquired. COMPARISON: [facility], CR, XR CHEST 2V, 10/04/2018, 11:32. FINDINGS: Surgical changes and devices: None. Lungs and pleura: Severe right upper lobe emphysema. Unchanged high-density calcified granuloma in the right lung base. No acute consolidation. Mediastinum: Mediastinal contours appear normal. Heart size is normal. Bones and chest wall: No suspicious bony lesions. Overlying soft tissues appear unremarkable. IMPRESSION: No acute disease. Right upper lobe emphysema as before. Dictated by: Marlon Frias M.D. on 09/17/2020 at 8:15 Approved by: Marlon Frias M.D. on 09/17/2020 at 8:19
[2020-09-16 23:56] LABS: Add Manual Diff / Slide Review NO; Basophils Absolute Auto 100 /uL (0-100); Basophils Percent Auto 2.2 % (0-2); Eosinophils Absolute Auto 200 /uL (0-450); Eosinophils Percent Auto 3.5 % (2-4); Hematocrit 42.7 % (36-46); Hemoglobin 14.7 g/dL (12.0-16.0); Lymphocytes Absolute Auto 2100 /uL (1100-4500); Lymphocytes Percent Auto 34.1 % (25-40); Mean Corpuscular HGB Conc 34.5 % (30-36); Mean Corpuscular Hemoglobin 33.2 PG (26-34); Mean Corpuscular Volume 96.3 fL (80-100); Monocytes Absolute Auto 500 /uL (0-900); Monocytes Percent Auto 7.9 % (3-14); Neutrophils Absolute Auto 3200 /uL (1500-7000); Neutrophils Percent Auto 52.3 % (50-75); Platelet Count 124 X10^3/uL (150-400); Red Blood Cell Count 4.44 X10^6/uL (4.0-5.2); Red Cell Distribution Width 12.9 % (11.6-14.8)
[2020-09-16 23:59] LABS: Alanine Aminotransferase 217 IU/L (<35); Albumin 4.2 g/dL (3.5-5.0); Albumin Globulin Ratio 1.2 (1.0-2.8); Alkaline Phosphatase 140 U/L (38-126); Aspartate Aminotransferase 249 IU/L (14-36); Bilirubin Total 0.9 mg/dL (0.2-1.3); Blood Urea Nitrogen 14 mg/dL (7-17); Calcium 9.6 mg/dL (8.4-10.2); Carbon Dioxide 27 mmol/L (22-32); Chloride 104 mmol/L (98-107); Estimated Glomerular Filt Rate > 60.0 mL/min (>60); Globulin 3.4 g/dL (1.7-4.1); Glucose 92 mg/dL (80-110); HEMOLYSIS 36 (0-50); Lipase 138 U/L (23-300); Potassium 3.9 mmol/L (3.4-5.1); Sodium 140 mmol/L (137-145); Total Protein 7.6 g/dL (6.3-8.2)
[2020-09-17 00:16] LABS: Procalcitonin 0.16 ng/mL (<0.5)
--- NOTE | 2020-09-17 02:22 | ED_ITS ---
HPI - Extremity Injury (Lower) General Chief Complaint: Extremity Injury, Lower Stated Complaint: lt foot injury Time Seen by Provider: 09/16/20 23:45 Source: patient Mode of arrival: Wheelchair Limitations: no limitations History of Present Illness HPI Narrative: 60-year-old woman with a history of depression and asthma with intermittent methamphetamine use presents complaining of left foot pain getting worse. She was recently diagnosed with cellulitis and started on doxycycline. This morning she was reaching up to take something off a shelf and had a heavy object land on the dorsum of the foot and she is worried that it is hurting more and the antibiotics are not working for the cellulitis. She reports no fevers, cough, chills, abdominal pain, vomiting, diarrhea. Related Data Home Medications Medication Instructions Recorded Confirmed Vitamins Misc. 1 dose PO DAILY 01/07/19 01/11/20 albuterol sulfate 90 mcg/actuation 1 - 2 puff INHALATION Q4H PRN 01/07/19 01/11/20 aerosol inhaler (ProAir HFA) escitalopram oxalate 10 mg tablet 10 mg PO DAILY 01/07/19 01/11/20 Previous Rx's Medication Instructions Recorded sumatriptan succinate 50 mg tablet See Rx Instructions PO .COMPLEX 03/07/19 #20 tab doxycycline hyclate 100 mg tablet 100 mg PO BID #20 tab 09/13/20 oxycodone-acetaminophen 5 mg-325 1 tab PO Q6H PRN #14 tab 09/17/20 mg tablet Allergies Allergy/AdvReac Type Severity Reaction Status Date / Time procaine [From NOVOCAIN] Allergy Mild RASH Verified 09/16/20 22:05 Review of Systems Review of Systems Narrative: Remainder of complete review of systems is otherwise unremarkable except for that included in the HPI. Patient History Medical History Allergies Anxiety Carbon monoxide exposure Cervical somatic dysfunction Chicken pox Chronic neck and back pain Circulation problem Cranial somatic dysfunction Depression Family history of cerebral aneurysm Foot pain Headache Hepatitis A Hepatitis C Panic anxiety syndrome Pelvic somatic dysfunction Right anterior knee pain Segmental and somatic dysfunction of abdomen and other regions Segmental and somatic dysfunction of lumbar region Segmental and somatic dysfunction of thoracic region Shoulder pain Sinusitis Skin problem Somatic dysfunction of sacral spine Tension headache, chronic Tobacco abuse disorder Vision disorder Surgical History H/O tubal ligation Hx of tonsillectomy No significant past surgical history Family History Father No problems noted. Mother Pneumonia Social History Smoking Status: Current every day smoker Smoking Status: Current every day smoker tobacco type: cigarettes alcohol intake frequency: holidays/special occasions only Substance Use Type: marijuana and methamphetamine Exam Narrative Exam Narrative: General: Disheveled non focused no significant distress Respiratory: Able to speak in full sentences, no obvious respiratory distress Skin: No obvious rashes, warm and dry Neurologic: Grossly intact no obvious asymmetries or abnormalities Psych: appropriate insight and affect, cooperative Lower extremity: Left foot with minor erythema over the dorsum of the foot and superimposed contusion and swelling. Initial Vital Signs Initial Vital Signs: Vital Signs Temperature 98.1 F 09/16/20 22:05 Pulse Rate 79 09/16/20 22:05 Respiratory Rate 18 09/16/20 22:05 Blood Pressure 194/102 H 09/16/20 22:05 Pulse Oximetry 99 09/16/20 22:05 Course Orders Ordered: Discontinued Medications Oxycodone/Acetaminophen (Oxycodone/Acetaminophen 5/325 Tablet) 2 tab PO NOW ONE Stop: 09/17/20 02:35 Last Admin: 09/17/20 03:01 Dose: 2 tab Documented by: ROSENDO Oxycodone/Acetaminophen (Oxycodone/Apap 5/325 Prepack) 1 bottle MISC SEEINSTR ONE Stop: 09/17/20 02:35 Last Admin: 09/17/20 03:01 Dose: 1 bottle Documented by: ROSENDO Vital Signs Vital signs: Vital Signs - 8 hr 09/16/20 22:05 Temperature 98.1 F Pulse Rate 79 Respiratory Rate 18 Blood Pressure 194/102 H Pulse Oximetry 99 MDM - Extremity Injury (Lower) Lab Data Result diagrams: 09/16/20 23:27 09/16/20 23:27 Labs: Lab Results 09/16/20 09/16/20 09/16/20 Range/Units 23:27 23:27 23:27 WBC 6.0 (4.5-11.0) X10^3/uL RBC 4.44 (4.0-5.2) X10^6/uL Hgb 14.7 (12.0-16.0) g/dL Hct 42.7 (36-46) % MCV 96.3 (80-100) fL MCH 33.2 (26-34) PG MCHC 34.5 (30-36) % RDW 12.9 (11.6-14.8) % Plt Count 124 L (150-400) X10^3/uL Neut % (Auto) 52.3 (50-75) % Lymph % (Auto) 34.1 (25-40) % [place] % (Auto) 7.9 (3-14) % Eos % (Auto) 3.5 (2-4) % Baso % (Auto) 2.2 H (0-2) % Neut # (Auto) 3200 (1482-9074) /uL Lymph # (Auto) 2100 (5860-5578) /uL [place] # (Auto) 500 (0-900) /uL Eos # (Auto) 200 (0-450) /uL Baso # (Auto) 100 (0-100) /uL Sodium 140 (137-145) mmol/L Potassium 3.9 (3.4-5.1) mmol/L Chloride 104 (98-107) mmol/L Carbon Dioxide 27 (22-32) mmol/L BUN 14 (7-17) mg/dL Creatinine 0.61 (0.52-1.04) mg/dL Estimated GFR > 60.0 (>60) mL/min BUN/Creatinine Ratio 23.0 H (6-22) Glucose 92 (80-110) mg/dL Lactate 2.0 (0.7-2.1) mmol/L Calcium 9.6 (8.4-10.2) mg/dL Total Bilirubin 0.9 (0.2-1.3) mg/dL AST 249 H (14-36) IU/L ALT 217 H (<35) IU/L Alkaline Phosphatase 140 H (38-126) U/L Total Protein 7.6 (6.3-8.2) g/dL Albumin 4.2 (3.5-5.0) g/dL Globulin 3.4 (1.7-4.1) g/dL Albumin/Globulin Ratio 1.2 (1.0-2.8) Lipase 138 (23-300) U/L Procalcitonin 0.16 (<0.5) ng/mL MDM Narrative Medical decision making narrative: 60-year-old woman with cellulitis of the right foot and then compound did contusion without fracture. The cellulitis is healing nicely she has simply further injured her foot. There is no evidence of sepsis or osteomyelitis at this time. She is safe for home discharge. Discharge Plan Departure Patient Disposition: Home Clinical Impression: Cellulitis of foot Contusion of foot, left Qualifiers: Encounter type: initial encounter Qualified Code(s): S90.32XA - Contusion of left foot, initial encounter Instructions: DI for Contusion Activity Restrictions/Additional Instructions: Thank you for coming in today So the infection of your left foot does look like it is improving and you need to complete the entire course of doxycycline that you were given a couple of days ago After dropping the object on your foot, there is quite a bit of swelling and bruising to the top of your foot but fortunately there are no broken bones With the amount of pain that your having simply from the swelling, I do not think that a wrap or a splint would be helpful for you. Keeping the foot elevated and icing it will be helpful Using 400 mg of ibuprofen (2 [id number] pills) and 1 Tylenol every 6 hours can be very helpful in controlling pain. For severe pain using to ibuprofen and 1 Percocet can be helpful if you choose to use the Percocet, please be aware that it is a narcotic, it does have addiction potential and does cause constipation. Use the crutches as needed for mobility Please schedule follow-up appointment in about a week with your primary care physician to make sure that you are improving and healing well Prescriptions: New oxycodone-acetaminophen 5-325 mg tablet 1 tab PO Q6H PRN (Reason: pain) Qty: 14 RF: 0 No Action sumatriptan succinate 50 mg tablet See Rx Instructions PO .COMPLEX Qty: 20 RF: 2 albuterol sulfate [ProAir HFA] 90 mcg/actuation HFA aerosol inhaler 1 - 2 puff INHALATION Q4H PRN (Reason: Shortness Of Breath) RF: 0 escitalopram oxalate 10 mg tablet 10 mg PO DAILY RF: 0 Vitamins Misc. 1 dose PO DAILY RF: 0 doxycycline hyclate 100 mg tablet 100 mg PO BID Qty: 20 RF: 0 Referrals: Teddy Mendez DO [Primary Care Provider] -
[2020-09-17 02:57] VITALS: BP 180/93; PULSE 79; RESP 22; O2SAT 98
[2020-09-17] MEDS: OXYCODONE/APAP 5/325 PREPACK 1 BOTTLE MISC (03:01)
[2020-09-17] MEDS: OXYCODONE/ACETAMINOPHEN 5/325 TABLET 2 TAB PO (03:01)
== END 2020-09-17 03:05 | disposition home or self-care (01) ==
PROVIDERS: Emergency Provider Emergency Medicine; PCP Family Medicine
DX: L03.116 Cellulitis of left lower limb (principal); S90.32XA Contusion of left foot, initial encounter
CPT/HCPCS: 36415; 71045; 73630; 80053; 83605; 83690; 84145; 85025; 87040; 99283; 99284

== ENCOUNTER 2020-09-29 10:55 | Emergency (ER) | payer OTHER, MEDICAID, SELFPAY ==
--- NOTE | 2020-09-29 10:57 | ED.GENADULT ---
HPI - General Adult General Chief complaint: Extremity Injury, Lower Stated complaint: foot, revisit, throbbing swollen, funky looking Time Seen by Provider: 09/29/20 10:57 History of Present Illness HPI narrative: Patient is a 60-year-old female who is here for evaluation of redness and swelling and pain to the top of the left foot. She states that the symptoms initially started approximately 2 weeks ago. She is unsure exactly what happened. She states that she thought that she was bit by an insect. She was wearing sandals at the time. She was seen here in the emergency department. Was started on antibiotic which appears to be doxycycline. She states she completed the course of that 2 days ago. Since that time she also sustained an injury where she dropped something on the top of her foot. She was again seen here in the emergency department. She states that she had x-rays performed and was told everything would be okay and she needed to continue or antibiotics. She had an appointment with her primary doctor this morning for re-evaluation but her provider had to cancel. She has noticed that the redness has continued in still has quite a bit of discomfort Related Data Home Medications Medication Instructions Recorded Confirmed Vitamins Misc. 1 dose PO DAILY 01/07/19 01/11/20 albuterol sulfate 90 mcg/actuation 1 - 2 puff INHALATION Q4H PRN 01/07/19 01/11/20 aerosol inhaler (ProAir HFA) escitalopram oxalate 10 mg tablet 10 mg PO DAILY 01/07/19 01/11/20 Previous Rx's Medication Instructions Recorded sumatriptan succinate 50 mg tablet See Rx Instructions PO .COMPLEX 03/07/19 #20 tab doxycycline hyclate 100 mg tablet 100 mg PO BID #20 tab 09/13/20 oxycodone-acetaminophen 5 mg-325 1 tab PO Q6H PRN #14 tab 09/17/20 mg tablet cephalexin 500 mg capsule 500 mg PO QID 7 Days #28 cap 09/29/20 Allergies Allergy/AdvReac Type Severity Reaction Status Date / Time procaine [From NOVOCAIN] Allergy Mild RASH Verified 09/29/20 11:05 Review of Systems Constitutional Constitutional: Reports system reviewed and no additional complaints, except as documented Musculoskeletal Musculoskeletal: Reports as per HPI Integumentary/Breasts Skin/Breast: Reports as per HPI Neurologic Neurologic: Reports system reviewed and no additional complaints, except as documented Hematologic/Lymphatic On Anticoagulants: No Patient History Medical History Allergies Anxiety Carbon monoxide exposure Cervical somatic dysfunction Chicken pox Chronic neck and back pain Circulation problem Cranial somatic dysfunction Depression Family history of cerebral aneurysm Foot pain Headache Hepatitis A Hepatitis C Panic anxiety syndrome Pelvic somatic dysfunction Right anterior knee pain Segmental and somatic dysfunction of abdomen and other regions Segmental and somatic dysfunction of lumbar region Segmental and somatic dysfunction of thoracic region Shoulder pain Sinusitis Skin problem Somatic dysfunction of sacral spine Tension headache, chronic Tobacco abuse disorder Vision disorder Surgical History H/O tubal ligation Hx of tonsillectomy No significant past surgical history Family History Father No problems noted. Mother Pneumonia Social History Smoking Status: Current every day smoker Smoking Status: Current every day smoker tobacco type: cigarettes alcohol intake frequency: holidays/special occasions only Substance Use Type: marijuana and methamphetamine Exam Initial Vital Signs Initial Vital Signs: Vital Signs Temperature 97.7 F 09/29/20 11:00 Pulse Rate 91 H 09/29/20 11:00 Respiratory Rate 16 09/29/20 11:00 Blood Pressure 148/90 H 09/29/20 11:00 Pulse Oximetry 96 09/29/20 11:00 HENMT Head: normal to inspection Cardio Pulses: dorsalis pedis present on the left Skin Other: Patient with a deep red area on the dorsum the left foot. Does extend into the toes and does extend up proximal to the ankle on the left. There appears to be the right minutes of a blister that has ruptured. Neuro Other: Sensation intact to light touch left foot Extrem Other: Pain and redness to palpation left foot Psych Appearance: grossly normal and well kempt Procedures Abscess I/D I&D #1: Site: foot Side (if applicable): left Local Anesthetic: lidocaine 1% and with bicarb Amount of anesthesia used (mL): 4 Technique: incised with #11 blade Irrigation: No Packing used?: none Complications: pain Course Orders Ordered: Discontinued Medications Lidocaine/Sodium Bicarbonate (Lido 1%/Sod Bicarb 8.4% (10ml) 10 Ml Syringe) 10 ml INJ NOW ONE Stop: 09/29/20 11:09 Last Admin: 09/29/20 11:13 Dose: 10 ml Documented by: Vital Signs Vital signs: Vital Signs - 8 hr 09/29/20 11:00 Temperature 97.7 F Pulse Rate 91 H Respiratory Rate 16 Blood Pressure 148/90 H Pulse Oximetry 96 Medical Decision Making MDM Narrative Medical decision making narrative: Bedside ultrasound did show what appeared to be a pocket of fluid on the dorsum of the left foot. An incision and drainage was performed with return of a very small amount of purulent material but more blood material. I suspect that we are seeing this area was actually a hematoma not necessarily an abscess. She does have redness encompassing the dorsum of her left foot and does extend slightly proximal to the left ankle. She is afebrile. Is nontoxic appearing. Is otherwise neurovascularly intact. The redness could potentially be a good continue all cellulitis. It could also be related to the presumed hematoma in this area most likely from the trauma that she sustained couple weeks ago. Given her presentation and her history I will continue her on antibiotics. She was placed on Keflex. I do not feel that she needs admitted to the hospital today for continued IV antibiotics. She was given strict return precautions and care instructions and follow-up instructions. She expressed understanding and agreement. Discharge Plan Departure Patient Disposition: Home Clinical Impression: Contusion of foot, left, Cellulitis Instructions: DI for Cellulitis -- Adult, DI for Contusion Activity Restrictions/Additional Instructions: I would expect drainage from the area today. You can keep it covered with a bandage in changes needed. You can shower like normal. Contact your primary doctor for follow-up. Return to the emergency department for any new or worsening symptoms Prescriptions: New cephalexin 500 mg capsule 500 mg PO QID 7 Days Qty: 28 RF: 0 No Action sumatriptan succinate 50 mg tablet See Rx Instructions PO .COMPLEX Qty: 20 RF: 2 albuterol sulfate [ProAir HFA] 90 mcg/actuation HFA aerosol inhaler 1 - 2 puff INHALATION Q4H PRN (Reason: Shortness Of Breath) RF: 0 escitalopram oxalate 10 mg tablet 10 mg PO DAILY RF: 0 Vitamins Misc. 1 dose PO DAILY RF: 0 doxycycline hyclate 100 mg tablet 100 mg PO BID Qty: 20 RF: 0 oxycodone-acetaminophen 5-325 mg tablet 1 tab PO Q6H PRN (Reason: pain) Qty: 14 RF: 0 Referrals: Teddy Mendez DO [Primary Care Provider] -
[2020-09-29 11:00] VITALS: BP 148/90; PULSE 91; RESP 16; TEMP 36.5; O2SAT 96; BMI 20.9
[2020-09-29] MEDS: LIDO 1%/SOD BICARB 8.4% (10ML) 10 ML SYRINGE INJ (11:13)
[2020-09-29 11:54] VITALS: BP 162/95; PULSE 84; RESP 16; O2SAT 100
== END 2020-09-29 11:57 | disposition home or self-care (01) ==
PROVIDERS: Emergency Provider Emergency Medicine; PCP Family Medicine
DX: L03.116 Cellulitis of left lower limb (principal); S90.32XA Contusion of left foot, initial encounter; W22.8XXA Striking against or struck by other objects, initial encounter
CPT/HCPCS: 10060; 99282; 99283

== ENCOUNTER 2020-10-08 14:57 | Emergency (ER) | payer OTHER, MEDICAID, SELFPAY ==
[2020-10-08 15:13] VITALS: BP 139/96; PULSE 90; RESP 14; TEMP 36.4; O2SAT 98; BMI 20.5
== END 2020-10-08 17:06 | disposition left against medical advice (07) ==
PROVIDERS: Emergency Provider Emergency Medicine; PCP Family Medicine
CPT/HCPCS: 99281

== ENCOUNTER 2020-10-09 17:42 | Emergency (ER) | payer OTHER, MEDICAID, SELFPAY ==
[2020-10-09 17:48] VITALS: BP 172/117; PULSE 99; RESP 18; TEMP 36.6; O2SAT 100; BMI 20.9
--- NOTE | 2020-10-09 18:00 | DI.RAD.S_ITS ---
PROCEDURE: XR FOOT LT MIN 3V INDICATIONS: Foot pain TECHNIQUE: 3 views of the foot were acquired. COMPARISON: [facility], CR, XR FOOT LT MIN 3V, 09/16/2020, 22:09. FINDINGS: There is soft tissue swelling in the dorsum of the forefoot overlying the metatarsals. No underlying radiopaque foreign body. No evidence of associated soft tissue gas. No acute fracture or dislocation. There is a moderate hallux valgus best seen on the prior study with associated moderate osteoarthritic change including some subluxation of the phalanx. IMPRESSION: Soft tissue swelling overlying the dorsum of the forefoot. No associated radiopaque foreign body. No destructive osseous lesion to indicate osteomyelitis. Degenerative changes in the MTP with hallux valgus and bunion, similar to the prior study. Dictated by: Elia Swann M.D. on 10/09/2020 at 18:12 Approved by: Elia Swann M.D. on 10/09/2020 at 18:13
[2020-10-09 18:45] LABS: Add Manual Diff / Slide Review NO; Basophils Absolute Auto 100 /uL (0-100); Basophils Percent Auto 0.8 % (0-2); Eosinophils Absolute Auto 200 /uL (0-450); Eosinophils Percent Auto 2.8 % (2-4); Hematocrit 42.9 % (36-46); Hemoglobin 15.1 g/dL (12.0-16.0); Lymphocytes Absolute Auto 1900 /uL (1100-4500); Mean Corpuscular HGB Conc 35.2 % (30-36); Mean Corpuscular Hemoglobin 33.4 PG (26-34); Mean Corpuscular Volume 94.7 fL (80-100); Monocytes Absolute Auto 600 /uL (0-900); Neutrophils Absolute Auto 4400 /uL (1500-7000); Neutrophils Percent Auto 61.4 % (50-75); Platelet Count 112 X10^3/uL (150-400); Red Blood Cell Count 4.53 X10^6/uL (4.0-5.2); Red Cell Distribution Width 12.5 % (11.6-14.8); White Blood Cell Count 7.2 X10^3/uL (4.5-11.0)
--- NOTE | 2020-10-09 18:47 | ED_ITS ---
HPI - Extremity Injury (Lower) General Chief Complaint: Extremity Injury, Lower Stated Complaint: Left Foot, Wants US Time Seen by Provider: 10/09/20 18:38 Source: patient Mode of arrival: Ambulatory Limitations: no limitations History of Present Illness HPI Narrative: Patient is a 60-year-old female who presents with left foot problem. It has been ongoing for about a month. She had I and D of her left foot. He said all initially started 1 month ago which she thinks she was bit by an insect she was wearing sandals at the time will she was cleaning. She was started on an antibiotic probably doxycycline. She then sustained a blunt injury to that same foot or she dropped something. As abscess formed. It was eye indeed in the emergency department 10 days ago. What came out was lots of old blood clots no significant pus. This swelling again really appeared. She was seen by her primary care provider who represcribed her antibiotics, Bactrim this time. She was referred to the ED for further evaluation. She has not had any fever chills. It is swollen again on the top of her foot but not signif icantly red or draining. Related Data Home Medications Medication Instructions Recorded Confirmed Vitamins Misc. 1 dose PO DAILY 01/07/19 10/08/20 albuterol sulfate 90 mcg/actuation 1 - 2 puff INHALATION Q4H PRN 01/07/1910/08 aerosol inhaler (ProAir HFA) escitalopram oxalate 10 mg tablet 10 mg PO DAILY 01/07/19 10/08/20 Previous Rx's Medication Instructions Recorded sumatriptan succinate 50 mg tablet See Rx Instructions PO .COMPLEX 03/07/19 #20 tab doxycycline hyclate 100 mg tablet 100 mg PO BID #20 tab 09/13/20 oxycodone-acetaminophen 5 mg-325 1 tab PO Q6H PRN #14 tab 09/17/20 mg tablet cephalexin 500 mg capsule 500 mg PO QID 7 Days #28 cap 10/08/20 cephalexin 500 mg capsule 500 mg PO QID 7 Days #28 cap 10/08/20 Allergies Allergy/AdvReac Type Severity Reaction Status Date / Time procaine [From NOVOCAIN] Allergy Mild RASH Verified 10/09/20 17:48 Review of Systems Review of Systems Narrative: GENERAL: Denies chills,fever HEENT: Denies throat pain RESPIRATORY: Denies dyspnea, cough, wheezing CARDIOVASCULAR: Denies chest pain, palpitations GASTROINTESTINAL: Denies nausea, vomiting MUSCULOSKELETAL: Denies extremity pain, injury SKIN: See HPI NEUROLOGIC: Denies weakness, dizziness, headache, numbness 8 point review of systems is negative except for those stated above and HPI Patient History Medical History (Updated 10/09/20 @ 19:28 by Ree Mark DO) Allergies Anxiety Carbon monoxide exposure Cervical somatic dysfunction Chicken pox Chronic neck and back pain Circulation problem Cranial somatic dysfunction Depression Family history of cerebral aneurysm Foot abscess, left Foot pain Headache Hepatitis A Hepatitis C Panic anxiety syndrome Pelvic somatic dysfunction Right anterior knee pain Segmental and somatic dysfunction of abdomen and other regions Segmental and somatic dysfunction of lumbar region Segmental and somatic dysfunction of thoracic region Shoulder pain Sinusitis Skin problem Somatic dysfunction of sacral spine Tension headache, chronic Tobacco abuse disorder Vision disorder Surgical History H/O tubal ligation Hx of tonsillectomy No significant past surgical history Family History Father No problems noted. Mother Pneumonia Social History Smoking Status: Current every day smoker Smoking Status: Current every day smoker tobacco type: cigarettes alcohol intake frequency: holidays/special occasions only Substance Use Type: marijuana and methamphetamine Exam Initial Vital Signs Initial Vital Signs: Vital Signs Temperature 97.9 F 10/09/20 17:48 Pulse Rate 99 H 10/09/20 17:48 Respiratory Rate 18 10/09/20 17:48 Blood Pressure 172/117 H 10/09/20 17:48 Pulse Oximetry 100 10/09/20 17:48 GENERAL: Well-appearing, well-nourished and in no acute distress. HEENT: Head atraumatic,EOMI, pupils reactive, face symmetric, moist mucous membranes CARDIOVASCULAR: Regular rate and rhythm without murmurs, rubs or gallops. RESPIRATORY: Breath sounds equal bilaterally, no wheezes rales or rhonchi. EXTREMITIES: Normal range of motion, no clubbing or edema. Neurovascularly intact NEUROLOGICAL: Alert and oriented x4.Normal gait and speech. SKIN: Left foot dorsal side there is swelling and fluctuation about 4 x 4 cm. Not significantly red no draining. Mild tenderness. No redness or streaking up the leg. No significant swelling of legs. Procedures Abscess I/D I&D #1: Site: foot Side (if applicable): left Local Anesthetic: lidocaine 1% and with bicarb Amount of anesthesia used (mL): 3 Technique: incised with #11 blade Complications: other (Old blood and blood clots were drained no pus. Culture sent and taken) Course Orders Ordered: ED Orders 10/09/20 18:00 XR foot LT min 3V Stat 10/09/20 18:33 Basic Metabolic Panel Stat C-Reactive Protein Quant Stat Complete Blood Count AUTO DIFF Stat Erythrocyte Sedimentation Rate Stat Procalcitonin Stat Discontinued Medications Lidocaine/Sodium Bicarbonate (Lido 1%/Sod Bicarb 8.4% (10ml) 10 Ml Syringe) 10 ml INJ NOW ONE Stop: 10/09/20 19:01 Last Admin: 10/09/20 19:09 Dose: 10 ml Documented by: LIZETTE Vital Signs Vital signs: Vital Signs - 8 hr 10/09/20 17:48 10/09/20 19:40 Temperature 97.9 F Pulse Rate 99 H 99 H Respiratory Rate 18 18 Blood Pressure 172/117 H 121/97 H Pulse Oximetry 100 98 MDM - Extremity Injury (Lower) Lab Data Result diagrams: 10/09/20 18:33 10/09/20 18:33 Labs: Lab Results 10/09/20 10/09/20 Range/Units 18:33 18:33 WBC 7.2 (4.5-11.0) X10^3/uL RBC 4.53 (4.0-5.2) X10^6/uL Hgb 15.1 (12.0-16.0) g/dL Hct 42.9 (36-46) % MCV 94.7 (80-100) fL MCH 33.4 (26-34) PG MCHC 35.2 (30-36) % RDW 12.5 (11.6-14.8) % Plt Count 112 L (150-400) X10^3/uL Neut % (Auto) 61.4 (50-75) % Lymph % (Auto) 27.0 (25-40) % [place] % (Auto) 8.0 (3-14) % Eos % (Auto) 2.8 (2-4) % Baso % (Auto) 0.8 (0-2) % Neut # (Auto) 4400 (5341-0586) /uL Lymph # (Auto) 1900 (2425-7269) /uL [place] # (Auto) 600 (0-900) /uL Eos # (Auto) 200 (0-450) /uL Baso # (Auto) 100 (0-100) /uL ESR 6 (0-20) MM/HR Sodium 138 (137-145) mmol/L Potassium 3.9 (3.4-5.1) mmol/L Chloride 102 (98-107) mmol/L Carbon Dioxide 29 (22-32) mmol/L BUN 13 (7-17) mg/dL Creatinine 0.48 L (0.52-1.04) mg/dL Estimated GFR > 60.0 (>60) mL/min BUN/Creatinine Ratio 27.1 H (6-22) Glucose 114 H (80-110) mg/dL Calcium 9.5 (8.4-10.2) mg/dL C-Reactive Protein < 0.5 (<1.0) mg/dL Procalcitonin 0.22 (<0.5) ng/mL Imaging Data Extremity x-ray #1: Radiologist's Impression: PROCEDURE: XR FOOT LT MIN 3V INDICATIONS: Foot pain TECHNIQUE: 3 views of the foot were acquired. COMPARISON: [facility], , XR FOOT LT MIN 3V, 09/16/2020, 22:09. FINDINGS: There is soft tissue swelling in the dorsum of the forefoot overlying the metatarsals. No underlying radiopaque foreign body. No evidence of associated soft tissue gas. No acute fracture or dislocation. There is a moderate hallux valgus best seen on the prior study with associated moderate osteoarthritic change including some subluxation of the phalanx. IMPRESSION: Soft tissue swelling overlying the dorsum of the forefoot. No associated radiopaque foreign body. No destructive osseous lesion to indicate osteomyelitis. Degenerative changes in the MTP with hallux valgus and bunion, similar to the prior study. Dictated by: Elia Swann M.D. on 10/09/2020 at 18:12 MDM Narrative Medical decision making narrative: Patient has recurrent swelling and fluctuation but does not look particularly infected. She is afebrile blood work is overall reassuring. Decision to repeat I& D. Multiple old blood clots were removed. Some pus but not a lot. Culture was taken. Recommend she take her antibiotics as her PCP previously prescribed. Overall pain is improved after procedure. Discharge Plan Departure Patient Disposition: Home Clinical Impression: Abscess of left foot Instructions: DI for Incision and Drainage of a Skin Abscess Activity Restrictions/Additional Instructions: *You have been diagnosed with incision and drainage *What to do: At this time blood clots were removed, recommend that you take antibiotics as previously prescribed start tonight. You may wear the orthopedic shoe as needed for comfort. Ambulate and walk as tolerated. Ice 20-30 minutes at a time *Continue to take medications as directed Ibuprofen 600 mg every 6-8 hours if needed for [id number] pain *Follow up with your primary care provider in 2-3 days *Return to ER if you should have increasing pain swelling fever redness or any new, worsening or concerning symptoms Prescriptions: No Action sumatriptan succinate 50 mg tablet See Rx Instructions PO .COMPLEX Qty: 20 RF: 2 cephalexin 500 mg capsule 500 mg PO QID 7 Days Qty: 28 RF: 0 cephalexin 500 mg capsule 500 mg PO QID 7 Days Qty: 28 RF: 0 albuterol sulfate [ProAir HFA] 90 mcg/actuation HFA aerosol inhaler 1 - 2 puff INHALATION Q4H PRN (Reason: Shortness Of Breath) RF: 0 escitalopram oxalate 10 mg tablet 10 mg PO DAILY RF: 0 Vitamins Misc. 1 dose PO DAILY RF: 0 doxycycline hyclate 100 mg tablet 100 mg PO BID Qty: 20 RF: 0 oxycodone-acetaminophen 5-325 mg tablet 1 tab PO Q6H PRN (Reason: pain) Qty: 14 RF: 0 Referrals: Teddy Mendez DO [Primary Care Provider] -
[2020-10-09 18:53] LABS: BUN Creatinine Ratio 27.1 (6-22); Blood Urea Nitrogen 13 mg/dL (7-17); C-Reactive Protein Quant < 0.5 mg/dL (<1.0); Calcium 9.5 mg/dL (8.4-10.2); Carbon Dioxide 29 mmol/L (22-32); Chloride 102 mmol/L (98-107); Estimated Glomerular Filt Rate > 60.0 mL/min (>60); Glucose 114 mg/dL (80-110); HEMOLYSIS 19 (0-50); Potassium 3.9 mmol/L (3.4-5.1); Sodium 138 mmol/L (137-145)
[2020-10-09 19:03] LABS: Erythrocyte Sedimentation Rate 6 MM/HR (0-20)
[2020-10-09 19:07] LABS: Procalcitonin 0.22 ng/mL (<0.5)
[2020-10-09] MEDS: LIDO 1%/SOD BICARB 8.4% (10ML) 10 ML SYRINGE INJ (19:09)
[2020-10-09 19:40] VITALS: BP 121/97; PULSE 99; RESP 18; O2SAT 98
== END 2020-10-09 19:41 | disposition home or self-care (01) ==
PROVIDERS: Emergency Medicine; Emergency Provider Emergency Medicine; PCP Family Medicine
DX: L02.612 Cutaneous abscess of left foot (principal)
CPT/HCPCS: 10060; 36415; 73630; 80048; 84145; 85025; 85651; 86140; 99283

== ENCOUNTER 2020-12-07 10:31 | Observation (INO) | payer OTHER, MEDICAID, SELFPAY ==
[2020-12-07] VITALS (23 sets, daily range): BP systolic 138–204; BP diastolic 83–107; PULSE 82–102; RESP 13–21; TEMP 35.7–36.8; O2SAT 90–100; BMI 21.3
--- NOTE | 2020-12-07 11:18 | ED.GENADULT ---
HPI - General Adult General Chief complaint: Abdominal Pain Stated complaint: Severe abd pain, no bowel movements Time Seen by Provider: 12/07/20 10:39 Source: patient Mode of arrival: Ambulatory Limitations: no limitations History of Present Illness HPI narrative: Patient is a 60-year-old female who is here for evaluation of approximately 5 days of abdominal discomfort. No nausea or vomiting. She states that it did get worse when she tried to eat something but since that time it has improved somewhat. Has not had a bowel movement since the onset of the symptoms. No urinary symptoms. No vaginal bleeding. No prior abdominal surgeries. Has not tried anything for symptoms prior to arrival. No chest pain. No shortness of breath. No fevers. Related Data Home Medications Medication Instructions Recorded Confirmed No Known Home Medications 12/07/20 12/07/20 Allergies Allergy/AdvReac Type Severity Reaction Status Date / Time procaine [From NOVOCAIN] Allergy Mild RASH Verified 11/26/20 16:04 Review of Systems Cardiovascular Cardiovascular: Reports as per HPI and Reports system reviewed and no additional complaints, except as documented Respiratory Respiratory: Reports as per HPI and Reports system reviewed and no additional complaints, except as documented Gastrointestinal Gastrointestinal: Reports as per HPI and Reports system reviewed and no additional complaints, except as documented Genitourinary Genitourinary: Reports system reviewed and no additional complaints, except as documented and Reports as per HPI Musculoskeletal Musculoskeletal: Reports system reviewed and no additional complaints, except as documented Integumentary/Breasts Skin/Breast: Reports system reviewed and no additional complaints, except as documented Neurologic Neurologic: Reports system reviewed and no additional complaints, except as documented Hematologic/Lymphatic On Anticoagulants: No Patient History Medical History Allergies Anxiety Carbon monoxide exposure Cervical somatic dysfunction Chicken pox Chronic neck and back pain Circulation problem Cranial somatic dysfunction Depression Family history of cerebral aneurysm Foot abscess, left Foot pain Headache Hepatitis A Hepatitis C Panic anxiety syndrome Pelvic somatic dysfunction Right anterior knee pain Segmental and somatic dysfunction of abdomen and other regions Segmental and somatic dysfunction of lumbar region Segmental and somatic dysfunction of thoracic region Shoulder pain Sinusitis Skin problem Somatic dysfunction of sacral spine Tension headache, chronic Tobacco abuse disorder Upper extremity somatic dysfunction Vision disorder Surgical History H/O tubal ligation Hx of tonsillectomy No significant past surgical history Family History Father No problems noted. Mother Pneumonia Social History household members: friend(s) Smoking Status: Current every day smoker Smoking Status: Current every day smoker tobacco type: cigarettes alcohol intake frequency: holidays/special occasions only Substance Use Type: marijuana and methamphetamine Exam Initial Vital Signs Initial Vital Signs: Vital Signs Temperature 97.7 F 12/07/20 11:12 Pulse Rate 88 12/07/20 11:12 Respiratory Rate 18 12/07/20 11:12 Blood Pressure 151/88 H 12/07/20 11:12 Pulse Oximetry 99 12/07/20 11:12 Const General: cooperative, comfortable and well developed HENMT Head: normal to inspection Chest Chest: normal inspection of the chest Resp Effort & Inspection: normal respiratory effort Cardio Rate: regular rate GI Inspection: normal to inspection and non-distended Palpation: soft, No firm, No guarding and tender (Left-sided abdomen) Back/Spine/Pelvis Back: normal to inspection Skin Lesions: no lesions Rashes: no rashes Neuro General: patient alert, patient awake and moves all extremities Extrem General: capillary refill normal Psych Appearance: grossly normal and well kempt Course Orders Ordered: ED Orders 12/07/20 11:19 CT abdomen pelvis w con Stat 12/07/20 11:51 Complete Blood Count AUTO DIFF Stat Comprehensive Metabolic Panel Stat Lactate (Lactic Acid) Stat Lipase Stat 12/07/20 13:06 Ictotest Urine Stat Urine Culture Stat Urine Microscopic Stat 12/07/20 14:01 Consult to General Surgery Stat 12/07/20 14:10 COVID19 - ADMIT ([facility] swab/PCR) Stat 12/07/20 14:18 Education, smoking cessation ONGOING 12/08/20 05:00 Basic Metabolic Panel Routine Complete Blood Count AUTO DIFF Routine Magnesium Routine Enoxaparin Sodium (Enoxaparin 40 Mg/0.4 Ml Syringe) 40 mg SUBCUT DAILY FRANCISCO J Sodium Chloride (Normal Saline 0.9%) 1,000 mls @ 125 mls/hr IV CONT FRANCISCO J Last Admin: 12/07/20 16:15 Dose: 125 mls/hr Documented by: RENETTA Ceftriaxone Sodium 1,000 mg/ (Sodium Chloride) 100 mls @ 200 mls/hr IV Q24H FRANCISCO J Last Infusion: 12/07/20 15:50 Dose: 0 mls/hr Documented by: Admin: 12/07/20 15:14 Dose: 200 mls/hr Documented by: JUSTICE Influenza Virus Vaccine (Influenza Vaccine Qiv 0.5 Ml Syringe) 0.5 ml IM .ONCE ONE Stop: 12/08/20 09:01 Morphine Sulfate (Morphine 2 Mg/Ml Inj) 2 mg IV Q4HR PRN PRN Reason: Pain, Moderate (4-6) Last Admin: 12/07/20 16:23 Dose: 2 mg Documented by: RENETTA Naloxone HCl (Naloxone 0.4 Mg/Ml Vial) 0.2 mg IV Q2MIN PRN PRN Reason: Opiate Reversal Ondansetron HCl (Ondansetron 4 Mg/2 Ml Inj) 4 mg IV Q8HR PRN PRN Reason: Nausea And Vomiting Discontinued Medications Sodium Chloride (Normal Saline 0.9%) 1,000 mls @ 1,000 mls/hr IV BOLUS ONE Stop: 12/07/20 12:17 Last Infusion: 12/07/20 15:11 Dose: 0 mls/hr Documented by: Admin: 12/07/20 12:06 Dose: 1,000 mls/hr Documented by: JUSTICE Vital Signs Vital signs: Vital Signs - 8 hr 12/07/20 11:12 12/07/20 11:16 12/07/20 11:57 Temperature 97.7 F 97.7 F Pulse Rate 88 82 Respiratory Rate 18 21 Blood Pressure 151/88 H Pulse Oximetry 99 98 12/07/20 12:00 12/07/20 12:30 12/07/20 12:44 Temperature Pulse Rate 87 92 H 92 H Respiratory Rate 19 18 18 Blood Pressure 204/107 H 174/100 H 190/87 H Pulse Oximetry 98 98 96 12/07/20 12:59 12/07/20 13:00 12/07/20 13:30 Temperature Pulse Rate 91 H 90 92 H Respiratory Rate 17 18 20 Blood Pressure 180/92 H 174/98 H 168/102 H Pulse Oximetry 98 100 99 12/07/20 14:00 Temperature Pulse Rate 102 H Respiratory Rate 17 Blood Pressure 170/95 H Pulse Oximetry 98 Medical Decision Making Lab Data Lab results reviewed: Yes I reviewed the patient's lab results. Result diagrams: 12/07/20 11:51 12/07/20 11:51 Labs: Lab Results 12/07/20 12/07/20 12/07/20 Range/Units 11:51 11:51 11:51 WBC 11.9 H (4.5-11.0) X10^3/uL RBC 4.96 (4.0-5.2) X10^6/uL Hgb 16.2 H (12.0-16.0) g/dL Hct 47.0 H (36-46) % MCV 94.7 (80-100) fL MCH 32.7 (26-34) PG MCHC 34.5 (30-36) % RDW 12.3 (11.6-14.8) % Plt Count 123 L (150-400) X10^3/uL Neut % (Auto) 75.0 (50-75) % Lymph % (Auto) 12.7 L (25-40) % [place] % (Auto) 11.1 (3-14) % Eos % (Auto) 0.7 L (2-4) % Baso % (Auto) 0.5 (0-2) % Neut # (Auto) 8900 H (3354-3264) /uL Lymph # (Auto) 1500 (6484-2514) /uL [place] # (Auto) 1300 H (0-900) /uL Eos # (Auto) 100 (0-450) /uL Baso # (Auto) 100 (0-100) /uL Sodium 135 L (137-145) mmol/L Potassium 3.7 (3.4-5.1) mmol/L Chloride 97 L (98-107) mmol/L Carbon Dioxide 25 (22-32) mmol/L BUN 15 (7-17) mg/dL Creatinine 0.38 L (0.52-1.04) mg/dL Estimated GFR > 60.0 (>60) mL/min BUN/Creatinine Ratio 39.5 H (6-22) Glucose 102 (80-110) mg/dL Lactate 1.8 (0.7-2.1) mmol/L Calcium 9.4 (8.4-10.2) mg/dL Total Bilirubin 1.7 H (0.2-1.3) mg/dL AST 96 H (14-36) IU/L ALT 121 H (<35) IU/L Alkaline Phosphatase 111 (38-126) U/L Total Protein 7.1 (6.3-8.2) g/dL Albumin 4.0 (3.5-5.0) g/dL Globulin 3.1 (1.7-4.1) g/dL Albumin/Globulin Ratio 1.3 (1.0-2.8) Lipase 62 (23-300) U/L Ur Bilirubin Confirm (Negative) Urine RBC (0-5/HPF) Urine WBC (0-5/HPF) Ur Squamous Epith Cells (0-5/HPF) Urine Bacteria (None) Ur Culture Indicated? SARS-CoV-2 (PCR) (Negative) 12/07/20 12/07/20 12/07/20 Range/Units 13:06 13:06 14:10 WBC (4.5-11.0) X10^3/uL RBC (4.0-5.2) X10^6/uL Hgb (12.0-16.0) g/dL Hct (36-46) % MCV (80-100) fL MCH (26-34) PG MCHC (30-36) % RDW (11.6-14.8) % Plt Count (150-400) X10^3/uL Neut % (Auto) (50-75) % Lymph % (Auto) (25-40) % [place] % (Auto) (3-14) % Eos % (Auto) (2-4) % Baso % (Auto) (0-2) % Neut # (Auto) (6967-2025) /uL Lymph # (Auto) (0469-1246) /uL [place] # (Auto) (0-900) /uL Eos # (Auto) (0-450) /uL Baso # (Auto) (0-100) /uL Sodium (137-145) mmol/L Potassium (3.4-5.1) mmol/L Chloride (98-107) mmol/L Carbon Dioxide (22-32) mmol/L BUN (7-17) mg/dL Creatinine (0.52-1.04) mg/dL Estimated GFR (>60) mL/min BUN/Creatinine Ratio (6-22) Glucose (80-110) mg/dL Lactate (0.7-2.1) mmol/L Calcium (8.4-10.2) mg/dL Total Bilirubin (0.2-1.3) mg/dL AST (14-36) IU/L ALT (<35) IU/L Alkaline Phosphatase (38-126) U/L Total Protein (6.3-8.2) g/dL Albumin (3.5-5.0) g/dL Globulin (1.7-4.1) g/dL Albumin/Globulin Ratio (1.0-2.8) Lipase (23-300) U/L Ur Bilirubin Confirm Negative (Negative) Urine RBC 1-5/hpf (0-5/HPF) Urine WBC 10-30/hpf H (0-5/HPF) Ur Squamous Epith Cells 1-5 /hpf (0-5/HPF) Urine Bacteria Few (2-10) H (None) Ur Culture Indicated? Specimen cultured SARS-CoV-2 (PCR) Negative (Negative) Urine Dip Bedside Urine Glucose Negative Bedside Urine Bilirubin - Negative Bedside Urine Ketone +/- 5 Urine Specific [place] 1.015 Bedside Urine Occult Blood - Negative Bedside Urine pH 6.0 Bedside Urine Protein - Negative Bedside Urine Urobilinogen 2+ 4mg Bedside Urine Nitrite - Negative Bedside Urine Leukocytes + 70 Esterase Point of care testing: Urine Dip Bedside Urine Glucose Negative Bedside Urine Bilirubin - Negative Bedside Urine Ketone +/- 5 Urine Specific [place] 1.015 Bedside Urine Occult Blood - Negative Bedside Urine pH 6.0 Bedside Urine Protein - Negative Bedside Urine Urobilinogen 2+ 4mg Bedside Urine Nitrite - Negative Bedside Urine Leukocytes + [address] scan - abdomen/pelvis: Radiologist's Impression: [place] [address] CT Scan Report Signed Patient: Gloria Mancera MR#: [id number] : 1960 Acct:[id number] Age/Sex: 60 / F Date of Service: 12/07/20 Loc: ED Accession Number: [id number] ?? Procedure: CT abdomen pelvis w con Ordering Provider: Frank Jimenez D.O. PROCEDURE:? CT ABDOMEN PELVIS W CON ? INDICATIONS:? Left-sided abdominal pain ? TECHNIQUE:? After the administration of intravenous contrast, axial sections acquired from the lung bases to the pubic symphysis.? Coronal and sagittal reformats were performed.? For radiation dose reduction, the following was used:? automated exposure control, adjustment of mA and/or kV according to patient size.? ? COMPARISON:? [facility], CT, CT ABDOMEN W CON, 01/08/2019, 11:30.? [facility], CT, ABDOMEN/PELVIS WITH CONTRAST, 04/15/2006, 0:49. ? FINDINGS:? Image quality:? Excellent.? ? Lung bases:? Mild emphysematous changes at the lung bases.? Trace bibasilar atelectasis.? Calcified granulomas laterally in the right lower lung. Heart:? No significant findings. ? ABDOMEN: Liver:? The liver is enlarged with left lobe hypertrophy and micronodular margin.? This size appears to be physiologic for the patient, stable since 2006. Micro nodularity is new.? No liver masses. Gallbladder:? Normal. Biliary ducts:? Nondilated. Pancreas:? Normal. Spleen:? Upper limits of normal in size measuring 12.4 cm. Adrenal Glands:? No nodules. Kidneys and Ureters:? Normal enhancement.? No hydronephrosis or hydroureter. ? Stomach and Bowel:? Numerous distended, fluid-filled proximal small bowel loops demonstrating air-fluid levels and mucosal hyperemia.? There is possible transition point in the right mid abdomen seen best on sagittal images where bowel becomes diffusely decompressed.? The small bowel wall continues to be thickened and enhancing.? There are hyperemic, decompressed small bowel loops dependently in the pelvis demonstrating thickened hansen.? The terminal ileum is decompressed and hyperemic stomach demonstrates wall thickening, mucosal hyperemia, and mild perigastric inflammation.? The colon contains semi solid stool, and distal decompression.? Peritoneum:? There is no extraluminal gas.? Small amount of free fluid present dependently in the pelvis and there is a small amount of perihepatic ascites.? The mesentery is hyperemic extending towards distal small bowel loops in the pelvis. ? Ventral Wall: ? No hernias.? Abdominal Nodes:? No retroperitoneal or mesenteric adenopathy by size criteria.? Vessels:? Aorta and inferior vena cava are normal in size.? Moderate abdominal aortic atherosclerotic calcification.? ? PELVIS: Pelvic Organs:? The uterus is age-appropriate.? No suspicious ovarian masses. Bladder:? Normal wall thickness. Pelvic Nodes: No enlarged lymph nodes.? Miscellaneous: No hernias are seen. ? ? ? Bones:? Unremarkable.? IMPRESSION:? 1. Distended proximal small bowel loops in the left abdomen consistent with partial small bowel obstruction.? 2. Transition point in the right abdomen is seen as area of bowel wall hyperemia and thickening.? Constellation of bowel findings is suspicious for generalized inflammation or infection, suspicious for Crohn's disease with differential diagnosis including gastroenteritis. 3. Micronodular liver contour suspicious for development of early cirrhosis. 4. Small amount of intraperitoneal ascites may be secondary to acute inflammation/infection or liver disease.? ? ? Dictated by: Mariola Smith M.D. on 12/07/2020 at 13:10 ? ? Approved by: Mariola Smith M.D. on 12/07/2020 at 13:25?? [facility] Narrative Medical decision making narrative: Patient's CT scan consistent with small-bowel obstruction. Has not had a bowel movement in the past several days. Is still passing a small amount of flatus. Is not currently nauseous although she states she has not eaten anything. The last time she tried to eat something she had an increase in her pain. Discussed the case with Dr. Garcia with General surgery. Will consult on the case. Discussed the case with Dr. Morales with Internal Medicine who will admit. I did discuss the findings of the CT scan with the patient. We did discuss the need for admission. She expressed understanding and agreement. Discharge Plan Departure Patient Disposition: Admitted As Inpatient Clinical Impression: Small bowel obstruction Admit Date/Time: 12/07/20 14:18 Admit Provider: Juancarlos Morales
--- NOTE | 2020-12-07 11:19 | DI.CT.S_ITS ---
PROCEDURE: CT ABDOMEN PELVIS W CON INDICATIONS: Left-sided abdominal pain TECHNIQUE: After the administration of intravenous contrast, axial sections acquired from the lung bases to the pubic symphysis. Coronal and sagittal reformats were performed. For radiation dose reduction, the following was used: automated exposure control, adjustment of mA and/or kV according to patient size. COMPARISON: [facility], CT, CT ABDOMEN W CON, 01/08/2019, 11:30. [facility], CT, ABDOMEN/PELVIS WITH CONTRAST, 04/15/2006, 0:49. FINDINGS: Image quality: Excellent. Lung bases: Mild emphysematous changes at the lung bases. Trace bibasilar atelectasis. Calcified granulomas laterally in the right lower lung. Heart: No significant findings. ABDOMEN: Liver: The liver is enlarged with left lobe hypertrophy and micronodular margin. This size appears to be physiologic for the patient, stable since 2006. Micro nodularity is new. No liver masses. Gallbladder: Normal. Biliary ducts: Nondilated. Pancreas: Normal. Spleen: Upper limits of normal in size measuring 12.4 cm. Adrenal Glands: No nodules. Kidneys and Ureters: Normal enhancement. No hydronephrosis or hydroureter. Stomach and Bowel: Numerous distended, fluid-filled proximal small bowel loops demonstrating air-fluid levels and mucosal hyperemia. There is possible transition point in the right mid abdomen seen best on sagittal images where bowel becomes diffusely decompressed. The small bowel wall continues to be thickened and enhancing. There are hyperemic, decompressed small bowel loops dependently in the pelvis demonstrating thickened hansen. The terminal ileum is decompressed and hyperemic stomach demonstrates wall thickening, mucosal hyperemia, and mild perigastric inflammation. The colon contains semi solid stool, and distal decompression. Peritoneum: There is no extraluminal gas. Small amount of free fluid present dependently in the pelvis and there is a small amount of perihepatic ascites. The mesentery is hyperemic extending towards distal small bowel loops in the pelvis. Ventral Wall: No hernias. Abdominal Nodes: No retroperitoneal or mesenteric adenopathy by size criteria. Vessels: Aorta and inferior vena cava are normal in size. Moderate abdominal aortic atherosclerotic calcification. PELVIS: Pelvic Organs: The uterus is age-appropriate. No suspicious ovarian masses. Bladder: Normal wall thickness. Pelvic Nodes: No enlarged lymph nodes. Miscellaneous: No hernias are seen. Bones: Unremarkable. IMPRESSION: 1. Distended proximal small bowel loops in the left abdomen consistent with partial small bowel obstruction. 2. Transition point in the right abdomen is seen as area of bowel wall hyperemia and thickening. Constellation of bowel findings is suspicious for generalized inflammation or infection, suspicious for Crohn's disease with differential diagnosis including gastroenteritis. 3. Micronodular liver contour suspicious for development of early cirrhosis. 4. Small amount of intraperitoneal ascites may be secondary to acute inflammation/infection or liver disease. Dictated by: Mariola Smith M.D. on 12/07/2020 at 13:10 Approved by: Mariola Smith M.D. on 12/07/2020 at 13:25
[2020-12-07 12:05] LABS: Add Manual Diff / Slide Review NO; Basophils Absolute Auto 100 /uL (0-100); Basophils Percent Auto 0.5 % (0-2); Eosinophils Absolute Auto 100 /uL (0-450); Eosinophils Percent Auto 0.7 % (2-4); Hemoglobin 16.2 g/dL (12.0-16.0); Lymphocytes Absolute Auto 1500 /uL (1100-4500); Lymphocytes Percent Auto 12.7 % (25-40); Mean Corpuscular HGB Conc 34.5 % (30-36); Mean Corpuscular Hemoglobin 32.7 PG (26-34); Mean Corpuscular Volume 94.7 fL (80-100); Monocytes Absolute Auto 1300 /uL (0-900); Monocytes Percent Auto 11.1 % (3-14); Neutrophils Absolute Auto 8900 /uL (1500-7000); Platelet Count 123 X10^3/uL (150-400); Red Blood Cell Count 4.96 X10^6/uL (4.0-5.2); Red Cell Distribution Width 12.3 % (11.6-14.8); White Blood Cell Count 11.9 X10^3/uL (4.5-11.0)
[2020-12-07] MEDS: SODIUM CHLORIDE 0.9% 1,000 ML 1000 ML IV (12:06)
[2020-12-07 12:23] LABS: Alanine Aminotransferase 121 IU/L (<35); Albumin Globulin Ratio 1.3 (1.0-2.8); Alkaline Phosphatase 111 U/L (38-126); Aspartate Aminotransferase 96 IU/L (14-36); BUN Creatinine Ratio 39.5 (6-22); Bilirubin Total 1.7 mg/dL (0.2-1.3); Blood Urea Nitrogen 15 mg/dL (7-17); Calcium 9.4 mg/dL (8.4-10.2); Carbon Dioxide 25 mmol/L (22-32); Chloride 97 mmol/L (98-107); Estimated Glomerular Filt Rate > 60.0 mL/min (>60); Globulin 3.1 g/dL (1.7-4.1); Glucose 102 mg/dL (80-110); HEMOLYSIS 19 (0-50); Lactate (Lactic Acid) 1.8 mmol/L (0.7-2.1); Lipase 62 U/L (23-300); Potassium 3.7 mmol/L (3.4-5.1); Sodium 135 mmol/L (137-145); Total Protein 7.1 g/dL (6.3-8.2)
[2020-12-07 13:44] LABS: Ictotest Urine Negative (Negative)
[2020-12-07 13:53] LABS: RBC Urine 1-5/HPF (0-5/HPF); Squamous Epithelial Cell Urine 1-5 /HPF (0-5/HPF); WBC Urine 10-30/HPF (0-5/HPF)
[2020-12-07 13:54] LABS: Bacteria Urine Few (2-10); Culture Indicated Urine Specimen Cultured
[2020-12-07 15:12] LABS: COVID19 - ADMIT (NP swab/PCR) Negative (Negative)
[2020-12-07] MEDS: cefTRIAXone 1,000 MG in SODIUM CHLORIDE 0.9% 100 ML 200 ML IV (15:14)
[2020-12-07] MEDS: SODIUM CHLORIDE 0.9% 1,000 ML 125 ML IV ×2 (16:15→23:54)
[2020-12-07] MEDS: MORPHINE 2 MG/ML INJ IV (16:23)
--- NOTE | 2020-12-07 19:09 | P.CONS_ITS ---
History of Present Illness Consult details Date Patient Seen: 12/07/20 Chief complaint: Severe abd pain, no bowel movements Narrative: The patient is a 60-year-old woman who presented to the emergency department today complaining of 5 days of abdominal pain. She reports that she has not had a bowel movement or passed any flatus for 5 days. She denies having prior history of bowel obstructions. She does not have nausea or vomiting. Her only abdominal surgical history is a tubal ligation Meds Home Medications and Allergies Home Medications Medication Instructions Recorded Confirmed Type No Known Home Medications 12/07/20 12/07/20 History Allergies Allergy/AdvReac Type Severity Reaction Status Date / Time procaine [From NOVOCAIN] Allergy Mild RASH Verified 11/26/20 16:04 Exam Vital Signs (past 8 hours): - 12/07/20 11:12 12/07/20 11:16 12/07/20 11:57 Temperature 97.7 F 97.7 F Pulse Rate 88 82 Respiratory Rate 18 21 Blood Pressure 151/88 H Pulse Oximetry 99 98 12/07/20 12:00 12/07/20 12:30 12/07/20 12:44 Temperature Pulse Rate 87 92 H 92 H Respiratory Rate 19 18 18 Blood Pressure 204/107 H 174/100 H 190/87 H Pulse Oximetry 98 98 96 12/07/20 12:59 12/07/20 13:00 12/07/20 13:30 Temperature Pulse Rate 91 H 90 92 H Respiratory Rate 17 18 20 Blood Pressure 180/92 H 174/98 H 168/102 H Pulse Oximetry 98 100 99 12/07/20 14:00 12/07/20 14:30 12/07/20 15:00 Temperature Pulse Rate 102 H 87 96 H Respiratory Rate 17 13 Blood Pressure 170/95 H 158/86 H Pulse Oximetry 98 100 100 12/07/20 15:01 12/07/20 15:04 12/07/20 15:30 Temperature Pulse Rate 98 H 90 92 H Respiratory Rate 16 17 19 Blood Pressure 190/99 H 173/95 H 158/83 H Pulse Oximetry 100 100 100 12/07/20 17:20 Temperature Pulse Rate Respiratory Rate Blood Pressure Pulse Oximetry 100 Oxygen Delivery Method Room Air Oxygen Flow Rate 0 Const General: No acute distress Orientation: alert, awake and oriented x3 GI Other: Abdomen is moderately distended. Moderately tender to percussion. No peritonitis Objective Labs Result Diagrams: 12/07/20 11:51 12/07/20 11:51 Labs: Laboratory Results - last 24 hr 12/07/20 12/07/20 12/07/20 11:51 11:51 11:51 WBC 11.9 H RBC 4.96 Hgb 16.2 H Hct 47.0 H MCV 94.7 MCH 32.7 MCHC 34.5 RDW 12.3 Plt Count 123 L Neut % (Auto) 75.0 Lymph % (Auto) 12.7 L [place] % (Auto) 11.1 Eos % (Auto) 0.7 L Baso % (Auto) 0.5 Neut # (Auto) 8900 H Lymph # (Auto) 1500 [place] # (Auto) 1300 H Eos # (Auto) 100 Baso # (Auto) 100 Sodium 135 L Potassium 3.7 Chloride 97 L Carbon Dioxide 25 BUN 15 Creatinine 0.38 L Estimated GFR > 60.0 BUN/Creatinine Ratio 39.5 H Glucose 102 Lactate 1.8 Calcium 9.4 Total Bilirubin 1.7 H AST 96 H ALT 121 H Alkaline Phosphatase 111 Total Protein 7.1 Albumin 4.0 Globulin 3.1 Albumin/Globulin Ratio 1.3 Lipase 62 Ur Bilirubin Confirm Urine RBC Urine WBC Ur Squamous Epith Cells Urine Bacteria Ur Culture Indicated? SARS-CoV-2 (PCR) 12/07/20 12/07/20 12/07/20 13:06 13:06 14:10 WBC RBC Hgb Hct MCV MCH MCHC RDW Plt Count Neut % (Auto) Lymph % (Auto) [place] % (Auto) Eos % (Auto) Baso % (Auto) Neut # (Auto) Lymph # (Auto) [place] # (Auto) Eos # (Auto) Baso # (Auto) Sodium Potassium Chloride Carbon Dioxide BUN Creatinine Estimated GFR BUN/Creatinine Ratio Glucose Lactate Calcium Total Bilirubin AST ALT Alkaline Phosphatase Total Protein Albumin Globulin Albumin/Globulin Ratio Lipase Ur Bilirubin Confirm Negative Urine RBC 1-5/hpf Urine WBC 10-30/hpf H Ur Squamous Epith Cells 1-5 /hpf Urine Bacteria Few (2-10) H Ur Culture Indicated? Specimen cultured SARS-CoV-2 (PCR) Negative [facility] Medical History Allergies Anxiety Carbon monoxide exposure Cervical somatic dysfunction Chicken pox Chronic neck and back pain Circulation problem Cranial somatic dysfunction Depression Family history of cerebral aneurysm Foot abscess, left Foot pain Headache Hepatitis A Hepatitis C Panic anxiety syndrome Pelvic somatic dysfunction Right anterior knee pain Segmental and somatic dysfunction of abdomen and other regions Segmental and somatic dysfunction of lumbar region Segmental and somatic dysfunction of thoracic region Shoulder pain Sinusitis Skin problem Somatic dysfunction of sacral spine Tension headache, chronic Tobacco abuse disorder Upper extremity somatic dysfunction Vision disorder Surgical History H/O tubal ligation Hx of tonsillectomy No significant past surgical history Family History Father No problems noted. Mother Pneumonia Social History household members: friend(s) Tobacco & Substance Use Smoking Status: Current every day smoker Assessment & Plan Assessment and plan (1) Small bowel obstruction: Status: Acute Plan: 60-year-old woman with small bowel obstruction versus ileus. She has few risk factors for bowel obstruction. Recommend observation for now. If she develops nausea and vomiting she will need an NG tube placed. If she starts to pass some flatus we can give her clear liquid diet. Time Spent With Patient Critical Care time: I spent a total of [] minutes of critical care time on this patient's care today; this time is exclusive of procedural time.
--- NOTE | 2020-12-07 20:40 | P.HP_ITS ---
History of Present Illness History of Present Illness Date Patient Seen: 12/07/20 Time Patient Seen: 15:00 Chief complaint: Severe abd pain, no bowel movements Narrative: Ms. Mancera is a 60W with PMH depression, documented previously Hep A/C, not on deanna medications who presents to the hospital with abdominal pain. She states for the last 4-5 days she has noted she has abdominal discomfort. She has not wanted to eat anything. She has not had nausea/vomiting. She has not had a bowel movement in a few days. No fevers/chills. No significant abdominal surgeries. Never had abdominal issues like this previously. In the ED, workup was done, vitals notable for a mildly elevated blood pressure. Labs notable for WBC 11.9, Hgb 16.2, platelets 123, Na 135, creatinine 0.38. Lactate 1.8. Bilirubin 1.7, ast 96, alt 121. UA with +WBC, few bacteria. COVID negative. CT abdomen with distended proximal small bowel loops with transition pint in right abdomen. Also noted bowel hyperemia and thickening. Also noted liver nodular with small ascites. She was admitted for further treatment. Patient History Medical History Allergies Anxiety Carbon monoxide exposure Cervical somatic dysfunction Chicken pox Chronic neck and back pain Circulation problem Cranial somatic dysfunction Depression Family history of cerebral aneurysm Foot abscess, left Foot pain Headache Hepatitis A Hepatitis C Panic anxiety syndrome Pelvic somatic dysfunction Right anterior knee pain Segmental and somatic dysfunction of abdomen and other regions Segmental and somatic dysfunction of lumbar region Segmental and somatic dysfunction of thoracic region Shoulder pain Sinusitis Skin problem Somatic dysfunction of sacral spine Tension headache, chronic Tobacco abuse disorder Upper extremity somatic dysfunction Vision disorder Surgical History H/O tubal ligation Hx of tonsillectomy No significant past surgical history Family & Social History Family History Father No problems noted. Mother Pneumonia Social History: household members friend(s) Prior Living Arrangements Apartment/Condo Safety & Behavioral: Feels Safe in Current Yes Environment Been Physically Hurt or No Threatened By a Person Suicidal Ideation Description None Suicide Plan Description No Plan Tobacco & Substance use: Smoking Status Current every day smoker alcohol intake frequency holiday/special occasion Substance Use Type marijuana,methamphetamine Meds Home Medications and Allergies Home Medications Medication Instructions Recorded Confirmed Type No Known Home Medications 12/07/20 12/07/20 History Allergies Allergy/AdvReac Type Severity Reaction Status Date / Time procaine [From NOVOCAIN] Allergy Mild RASH Verified 11/26/20 16:04 Review of Systems Review of Systems Narrative: 14 systems reviewed and negative aside from what is noted in HPI Exam Vital Signs (past 8 hours): - 12/07/20 12:44 12/07/20 12:59 12/07/20 13:00 Pulse Rate 92 H 91 H 90 Respiratory Rate 18 17 18 Blood Pressure 190/87 H 180/92 H 174/98 H Pulse Oximetry 96 98 100 12/07/20 13:30 12/07/20 14:00 12/07/20 14:30 Pulse Rate 92 H 102 H 87 Respiratory Rate 20 17 13 Blood Pressure 168/102 H 170/95 H 158/86 H Pulse Oximetry 99 98 100 12/07/20 15:00 12/07/20 15:01 12/07/20 15:04 Pulse Rate 96 H 98 H 90 Respiratory Rate 16 17 Blood Pressure 190/99 H 173/95 H Pulse Oximetry 100 100 100 12/07/20 15:30 12/07/20 17:20 Pulse Rate 92 H Respiratory Rate 19 Blood Pressure 158/83 H Pulse Oximetry 100 100 Oxygen Delivery Method Room Air Oxygen Flow Rate 0 Narrative Exam Narrative: GEN: mildly in distress HEENT: dry mucous membranes, PERRL NECK: trachea midline, no JVD CV: regular rate and rhythm with no murmurs PULM: clear bilaterally, no wheezes, rhonchi, rales ABD: soft, diffusely tender, moderately distended, no rebound/guarding, decreased bowel sounds EXT: warm and well perfused with no edema SKIN: no rashes NEURO: awake, alert, oriented, no focal deficits Objective Labs Result Diagrams: 12/07/20 11:51 12/07/20 11:51 Labs: Laboratory Results - last 24 hr 12/07/20 12/07/20 12/07/20 11:51 11:51 11:51 WBC 11.9 H RBC 4.96 Hgb 16.2 H Hct 47.0 H MCV 94.7 MCH 32.7 MCHC 34.5 RDW 12.3 Plt Count 123 L Neut % (Auto) 75.0 Lymph % (Auto) 12.7 L [place] % (Auto) 11.1 Eos % (Auto) 0.7 L Baso % (Auto) 0.5 Neut # (Auto) 8900 H Lymph # (Auto) 1500 [place] # (Auto) 1300 H Eos # (Auto) 100 Baso # (Auto) 100 Sodium 135 L Potassium 3.7 Chloride 97 L Carbon Dioxide 25 BUN 15 Creatinine 0.38 L Estimated GFR > 60.0 BUN/Creatinine Ratio 39.5 H Glucose 102 Lactate 1.8 Calcium 9.4 Total Bilirubin 1.7 H AST 96 H ALT 121 H Alkaline Phosphatase 111 Total Protein 7.1 Albumin 4.0 Globulin 3.1 Albumin/Globulin Ratio 1.3 Lipase 62 Ur Bilirubin Confirm Urine RBC Urine WBC Ur Squamous Epith Cells Urine Bacteria Ur Culture Indicated? SARS-CoV-2 (PCR) 12/07/20 12/07/20 12/07/20 13:06 13:06 14:10 WBC RBC Hgb Hct MCV MCH MCHC RDW Plt Count Neut % (Auto) Lymph % (Auto) [place] % (Auto) Eos % (Auto) Baso % (Auto) Neut # (Auto) Lymph # (Auto) [place] # (Auto) Eos # (Auto) Baso # (Auto) Sodium Potassium Chloride Carbon Dioxide BUN Creatinine Estimated GFR BUN/Creatinine Ratio Glucose Lactate Calcium Total Bilirubin AST ALT Alkaline Phosphatase Total Protein Albumin Globulin Albumin/Globulin Ratio Lipase Ur Bilirubin Confirm Negative Urine RBC 1-5/hpf Urine WBC 10-30/hpf H Ur Squamous Epith Cells 1-5 /hpf Urine Bacteria Few (2-10) H Ur Culture Indicated? Specimen cultured SARS-CoV-2 (PCR) Negative Assessment & Plan Assessment & Plan narrative: Ms. Mancera is a 60W who presents with abdominal pain found to have small bowel obstruction. 1. Acute small bowel obstruction -etiology not clear, less likely adhesions as no significant surgery -possibly inflammatory, infectious vs mass -surgery consulted -patient NPO -IV morhpine and zofran ordered -no NG tube for now as no vomiting 2. Transaminitis, acute -etiology not clear -possibly from cirrhosis given nodular appearance of liver -trend LFTs 3. Thrombocytopenia -has been thrombocytopenic in past -increases likelihood this is related to liver disease -no need for transfusion 4. UTI -UA positive, urine culture pending -ordered for ceftriaxone CODE: DNR Proxy: Roney Mancera, son I have utilized all available resources to review update, and confirm his current medications Time Spent With Patient Critical Care time: I spent a total of [] minutes of critical care time on this patient's care today; this time is exclusive of procedural time.
[2020-12-08] VITALS (11 sets, daily range): BP systolic 144–155; BP diastolic 83–107; PULSE 79–98; RESP 16–18; TEMP 35.6–36.6; O2SAT 95–98
[2020-12-08 06:54] LABS: Add Manual Diff / Slide Review NO; Basophils Absolute Auto 100 /uL (0-100); Basophils Percent Auto 0.6 % (0-2); Eosinophils Absolute Auto 100 /uL (0-450); Eosinophils Percent Auto 1.1 % (2-4); Hematocrit 40.3 % (36-46); Lymphocytes Absolute Auto 1600 /uL (1100-4500); Lymphocytes Percent Auto 17.3 % (25-40); Mean Corpuscular HGB Conc 34.7 % (30-36); Mean Corpuscular Hemoglobin 32.8 PG (26-34); Mean Corpuscular Volume 94.4 fL (80-100); Monocytes Absolute Auto 900 /uL (0-900); Monocytes Percent Auto 9.4 % (3-14); Neutrophils Absolute Auto 6500 /uL (1500-7000); Neutrophils Percent Auto 71.6 % (50-75); Platelet Count 117 X10^3/uL (150-400); Red Blood Cell Count 4.27 X10^6/uL (4.0-5.2); Red Cell Distribution Width 12.1 % (11.6-14.8); White Blood Cell Count 9.1 X10^3/uL (4.5-11.0)
[2020-12-08 06:56] LABS: BUN Creatinine Ratio 23.9 (6-22); Blood Urea Nitrogen 11 mg/dL (7-17); Calcium 8.4 mg/dL (8.4-10.2); Carbon Dioxide 22 mmol/L (22-32); Chloride 106 mmol/L (98-107); Estimated Glomerular Filt Rate > 60.0 mL/min (>60); Glucose 77 mg/dL (80-110); HEMOLYSIS < 15 (0-50); Magnesium 1.7 mg/dL (1.6-2.3); Potassium 3.7 mmol/L (3.4-5.1); Sodium 135 mmol/L (137-145)
[2020-12-08 06:57] LABS: Alanine Aminotransferase 88 IU/L (<35); Albumin 3.1 g/dL (3.5-5.0); Albumin Globulin Ratio 1.2 (1.0-2.8); Alkaline Phosphatase 94 U/L (38-126); Aspartate Aminotransferase 64 IU/L (14-36); Bilirubin Unconjugated 0.6 mg/dL (0.0-1.1); Globulin 2.6 g/dL (1.7-4.1); HEMOLYSIS < 15 (0-50); Total Protein 5.7 g/dL (6.3-8.2)
[2020-12-08] MEDS: INFLUENZA VACCINE QIV 0.5 ML SYRINGE IM (09:27)
[2020-12-08] MEDS: MORPHINE 2 MG/ML INJ IV (09:28)
[2020-12-08] MEDS: ENOXAPARIN 40 MG/0.4 ML SYRINGE SUBCUT (09:29)
[2020-12-08] MEDS: SODIUM CHLORIDE 0.9% 1,000 ML 125 ML IV ×2 (09:29→19:15)
--- NOTE | 2020-12-08 11:26 | P.PN_ITS ---
Subjective Subjective Date Patient Seen: 12/08/20 Interval history: Pt states she has been passing flatus. She continues to report abdominal discomfort. She wants to drink grapefruit juice. Exam Vital Signs (past 8 hours): - 12/08/20 06:16 12/08/20 09:06 12/08/20 09:20 Temperature 97.3 F L 96.4 F L Pulse Rate 89 90 Respiratory Rate 16 18 Blood Pressure 144/83 H 151/86 H Pulse Oximetry 98 95 97 Oxygen Delivery Method Room Air Oxygen Flow Rate 0 Narrative Exam Narrative: Soft, tender to palpation. No peritoneal signs Objective Labs Result Diagrams: 12/08/20 05:40 12/08/20 05:40 Labs: Laboratory Results - last 24 hr 12/07/20 12/07/20 12/07/20 11:51 11:51 11:51 WBC 11.9 H RBC 4.96 Hgb 16.2 H Hct 47.0 H MCV 94.7 MCH 32.7 MCHC 34.5 RDW 12.3 Plt Count 123 L Neut % (Auto) 75.0 Lymph % (Auto) 12.7 L [place] % (Auto) 11.1 Eos % (Auto) 0.7 L Baso % (Auto) 0.5 Neut # (Auto) 8900 H Lymph # (Auto) 1500 [place] # (Auto) 1300 H Eos # (Auto) 100 Baso # (Auto) 100 Sodium 135 L Potassium 3.7 Chloride 97 L Carbon Dioxide 25 BUN 15 Creatinine 0.38 L Estimated GFR > 60.0 BUN/Creatinine Ratio 39.5 H Glucose 102 Lactate 1.8 Calcium 9.4 Magnesium Total Bilirubin 1.7 H Conjugated Bilirubin Unconjugated Bilirubin AST 96 H ALT 121 H Alkaline Phosphatase 111 Total Protein 7.1 Albumin 4.0 Globulin 3.1 Albumin/Globulin Ratio 1.3 Lipase 62 Ur Bilirubin Confirm Urine RBC Urine WBC Ur Squamous Epith Cells Urine Bacteria Ur Culture Indicated? SARS-CoV-2 (PCR) 12/07/20 12/07/20 12/07/20 13:06 13:06 14:10 WBC RBC Hgb Hct MCV MCH MCHC RDW Plt Count Neut % (Auto) Lymph % (Auto) [place] % (Auto) Eos % (Auto) Baso % (Auto) Neut # (Auto) Lymph # (Auto) [place] # (Auto) Eos # (Auto) Baso # (Auto) Sodium Potassium Chloride Carbon Dioxide BUN Creatinine Estimated GFR BUN/Creatinine Ratio Glucose Lactate Calcium Magnesium Total Bilirubin Conjugated Bilirubin Unconjugated Bilirubin AST ALT Alkaline Phosphatase Total Protein Albumin Globulin Albumin/Globulin Ratio Lipase Ur Bilirubin Confirm Negative Urine RBC 1-5/hpf Urine WBC 10-30/hpf H Ur Squamous Epith Cells 1-5 /hpf Urine Bacteria Few (2-10) H Ur Culture Indicated? Specimen cultured SARS-CoV-2 (PCR) Negative 12/08/20 12/08/20 12/08/20 05:40 05:40 05:40 WBC 9.1 RBC 4.27 Hgb 14.0 Hct 40.3 MCV 94.4 MCH 32.8 MCHC 34.7 RDW 12.1 Plt Count 117 L Neut % (Auto) 71.6 Lymph % (Auto) 17.3 L [place] % (Auto) 9.4 Eos % (Auto) 1.1 L Baso % (Auto) 0.6 Neut # (Auto) 6500 Lymph # (Auto) 1600 [place] # (Auto) 900 Eos # (Auto) 100 Baso # (Auto) 100 Sodium 135 L Potassium 3.7 Chloride 106 Carbon Dioxide 22 BUN 11 Creatinine 0.46 L Estimated GFR > 60.0 BUN/Creatinine Ratio 23.9 H Glucose 77 L Lactate Calcium 8.4 Magnesium 1.7 Total Bilirubin 1.0 Conjugated Bilirubin 0.0 Unconjugated Bilirubin 0.6 AST 64 H ALT 88 H Alkaline Phosphatase 94 Total Protein 5.7 L Albumin 3.1 L Globulin 2.6 Albumin/Globulin Ratio 1.2 Lipase Ur Bilirubin Confirm Urine RBC Urine WBC Ur Squamous Epith Cells Urine Bacteria Ur Culture Indicated? SARS-CoV-2 (PCR) [facility] Medical History Allergies Anxiety Carbon monoxide exposure Cervical somatic dysfunction Chicken pox Chronic neck and back pain Circulation problem Cranial somatic dysfunction Depression Family history of cerebral aneurysm Foot abscess, left Foot pain Headache Hepatitis A Hepatitis C Panic anxiety syndrome Pelvic somatic dysfunction Right anterior knee pain Segmental and somatic dysfunction of abdomen and other regions Segmental and somatic dysfunction of lumbar region Segmental and somatic dysfunction of thoracic region Shoulder pain Sinusitis Skin problem Somatic dysfunction of sacral spine Tension headache, chronic Tobacco abuse disorder Upper extremity somatic dysfunction Vision disorder Surgical History H/O tubal ligation Hx of tonsillectomy No significant past surgical history Family History Father No problems noted. Mother Pneumonia Social History household members: friend(s) Smoking Status: Current every day smoker Assessment & Plan Assessment and plan (1) Small bowel obstruction: Status: Acute Plan: Now passing flatus. Ok to start clear liquid diet and advance as tolerates. Back to NPO if she becomes nauseated or vomits. Time Spent With Patient Critical Care time: I spent a total of [] minutes of critical care time on this patient's care today; this time is exclusive of procedural time.
--- NOTE | 2020-12-08 12:10 | PC.NURSE ---
Addendum entered by Hilary Han R.N. 12/08/20 14:55: Patient asked if she could go over to the other side of the street off of hospital campus, explained to patient that this is a non smoking campus and she cannot go out and smoke, offered a nicotine patch but refused. Patients blood pressure was 170s and down to 160s/90. is aware of blood pressure. She is tolerating clears well, o nausea or emesis. Original Note: Patient given dilaudid for discomfort to abdomen.. She is distended and has not had a bowel thus far. Patient is on clear liquids and is tolerating a popsicle now. She is steady on her feet.
[2020-12-08] MEDS: PANTOPRAZOLE 40 MG VIAL IV (12:18)
[2020-12-08] MEDS: cefTRIAXone 1,000 MG in SODIUM CHLORIDE 0.9% 100 ML 200 ML IV (14:29)
--- NOTE | 2020-12-08 15:40 | P.PN_ITS ---
Subjective Subjective Date Patient Seen: 12/08/20 Time Patient Seen: 08:00 Interval history: Today she states her abdominal pain is still significant, she has not started passing gas. She wants to eat and drink. No nausea/vomiting. Exam Vital Signs (past 8 hours): - 12/08/20 09:06 12/08/20 09:20 12/08/20 15:38 Temperature 96.4 F L 96.1 F L Pulse Rate 90 79 Respiratory Rate 18 16 Blood Pressure 151/86 H 144/107 H Pulse Oximetry 95 97 96 Oxygen Delivery Method Room Air Oxygen Flow Rate 0 Narrative Exam Narrative: GEN: mildly in distress HEENT: dry mucous membranes, PERRL NECK: trachea midline, no JVD CV: regular rate and rhythm with no murmurs PULM: clear bilaterally, no wheezes, rhonchi, rales ABD: soft, diffusely tender, moderately distended, no rebound/guarding, decre ased bowel sounds EXT: warm and well perfused with no edema SKIN: no rashes NEURO: awake, alert, oriented, no focal deficits Objective Labs Result Diagrams: 12/08/20 05:40 12/08/20 05:40 Labs: Laboratory Results - last 24 hr 12/08/20 12/08/20 12/08/20 05:40 05:40 05:40 WBC 9.1 RBC 4.27 Hgb 14.0 Hct 40.3 MCV 94.4 MCH 32.8 MCHC 34.7 RDW 12.1 Plt Count 117 L Neut % (Auto) 71.6 Lymph % (Auto) 17.3 L [place] % (Auto) 9.4 Eos % (Auto) 1.1 L Baso % (Auto) 0.6 Neut # (Auto) 6500 Lymph # (Auto) 1600 [place] # (Auto) 900 Eos # (Auto) 100 Baso # (Auto) 100 Sodium 135 L Potassium 3.7 Chloride 106 Carbon Dioxide 22 BUN 11 Creatinine 0.46 L Estimated GFR > 60.0 BUN/Creatinine Ratio 23.9 H Glucose 77 L Calcium 8.4 Magnesium 1.7 Total Bilirubin 1.0 Conjugated Bilirubin 0.0 Unconjugated Bilirubin 0.6 AST 64 H ALT 88 H Alkaline Phosphatase 94 Total Protein 5.7 L Albumin 3.1 L Globulin 2.6 Albumin/Globulin Ratio 1.2 [facility] Medical History Allergies Anxiety Carbon monoxide exposure Cervical somatic dysfunction Chicken pox Chronic neck and back pain Circulation problem Cranial somatic dysfunction Depression Family history of cerebral aneurysm Foot abscess, left Foot pain Headache Hepatitis A Hepatitis C Panic anxiety syndrome Pelvic somatic dysfunction Right anterior knee pain Segmental and somatic dysfunction of abdomen and other regions Segmental and somatic dysfunction of lumbar region Segmental and somatic dysfunction of thoracic region Shoulder pain Sinusitis Skin problem Somatic dysfunction of sacral spine Tension headache, chronic Tobacco abuse disorder Upper extremity somatic dysfunction Vision disorder Surgical History H/O tubal ligation Hx of tonsillectomy No significant past surgical history Family History Father No problems noted. Mother Pneumonia Social History household members: friend(s) Smoking Status: Current every day smoker Assessment & Plan Assessment & Plan narrative: Ms. Mancera is a 60W who presents with abdominal pain found to have small bowel obstruction. 1. Acute small bowel obstruction -etiology not clear, less likely adhesions as no significant surgery -possibly inflammatory, infectious vs mass -surgery consulted -patient NPO initially, and advancing diet as tolerated -IV morhpine and zofran ordered -no NG tube for now as no vomiting 2. Transaminitis, resolving -etiology not clear, but improving -possibly from cirrhosis given nodular appearance of liver 3. Thrombocytopenia -has been thrombocytopenic in past -increases likelihood this is related to liver disease -no need for transfusion 4. UTI -UA positive, urine culture pending -ordered for ceftriaxone CODE: DNR Proxy: Roney Mancera, son I have utilized all available resources to review update, and confirm his current medications Time Spent With Patient Critical Care time: I spent a total of [] minutes of critical care time on this patient's care today; this time is exclusive of procedural time.
--- NOTE | 2020-12-08 16:50 | CM.DANOTE ---
DCP/Assessment: Reviewed chart. Patient is a 60yr old female admitted to [facility] with abdominal pain. PCP listed is Dr. Mendez. Primary payor is 1)[place] 2)Medicaid. Briefly reviewed chart. Patient thought to have SBO and currently on bowel rest. Unclear at this time is she will need surgical intervention? CM team unable to see today, will request re-attempt tomorrow 12-10-19. P: CM team to assess prior to d/c for needs. TIANA Dejesus Discharge Planning/Care Management CM Discharge Assessment Start: 12/08/20 16:46 Freq: Status: Active Protocol: Document 12/08/20 16:46 KJS (Rec: 12/08/20 16:49 KJS [id number]) Discharge Planning Assessment Assigned Website Programmer TIANA Dejesus Contact Information Rhonda Mancera (daughter) # [phone] Advance Directives? No History Provided By Medical Record Prior Living Arrangements Apartment/Condo Household Members friend(s) Independent with ADL's Yes: Per notes Is patient alert and oriented? Yes Caregiver for Another No Barriers to Discharge No Discharge Plan Home Additional Comment Pending POC and d/c planning needs. Review Status In Process Next Review Type Continued Stay Review Document 12/08/20 16:50 KJS (Rec: 12/08/20 16:50 KJS [id number]) Discharge Planning Assessment Assigned Website Programmer TIANA Dejesus Contact Information Rhonda Mancera (daughter) # Advance Directives? No History Provided By Medical Record Prior Living Arrangements Apartment/Condo Household Members friend(s) Comment Unsure if patient currently drives. Independent with ADL's Yes: Per notes Is patient alert and oriented? Yes Caregiver for Another No Barriers to Discharge No Discharge Plan Home Additional Comment Pending POC and d/c planning needs. Review Status In Process Next Review Type Continued Stay Review
[2020-12-08] MEDS: MORPHINE 4 MG/ML INJ IV ×2 (19:14→23:37)
[2020-12-09] VITALS (8 sets, daily range): BP systolic 133–161; BP diastolic 79–87; PULSE 81–88; RESP 16–18; TEMP 36.3–36.7; O2SAT 95–97
[2020-12-09] MEDS: SODIUM CHLORIDE 0.9% 1,000 ML 125 ML IV ×2 (03:28→15:05)
--- NOTE | 2020-12-09 08:30 | PC.NURSE ---
Addendum entered by Hilary Han R.N. 12/09/20 15:43: Patient showered earlier and ambulated in the halls with her friend. She is tolerating a general diet without any nausea or emesis. Friend left and patient is resting comfortably. Original Note: Patient is in better spirits this morning. Her abdomen is less distended and she states that she is passing gas. Up independently in room. Patient ate about half of her clear liquid diet. States that she has a low level of pain in her abdomen, but does not need pain medication at this time. She is resting now.
[2020-12-09] MEDS: PANTOPRAZOLE 40 MG VIAL IV (09:06)
[2020-12-09] MEDS: ENOXAPARIN 40 MG/0.4 ML SYRINGE SUBCUT (09:06)
--- NOTE | 2020-12-09 11:26 | CM.DPNOTE ---
DCP Cont Reviewed chart. Patient discussed in multidisciplinary rounds. Diet will be advanced to regular to see if patient tolerates. According to RN Coordinator Ashley, patient is an active meth and THC user, asks if patient requires an PROPERTY OFFICER consult? Reviewed this w/ RN Hilary who denied needs for PROPERTY OFFICER at this time, states patient has not reported interest in abstinence at this time. Will continue to follow closely in case DC needs or concerns arise. Also available for PROPERTY OFFICER consult if requested by the physician. JUAN
[2020-12-09] MEDS: cefTRIAXone 1,000 MG in SODIUM CHLORIDE 0.9% 100 ML 200 ML IV (15:06)
--- NOTE | 2020-12-09 15:10 | PM.PN.1 ---
Subjective Subjective Date Patient Seen: 12/09/20 Time Patient Seen: 08:00 Interval history: Today she still complains of abdominal pain. She has not had a bowel movement. She is passing gas. No vomiting. Exam Vital Signs (past 8 hours): - 12/09/20 07:32 12/09/20 09:41 12/09/20 12:00 Temperature 98.1 F 98.1 F Pulse Rate 81 84 Respiratory Rate 18 17 Blood Pressure 161/85 H 133/80 Pulse Oximetry 97 96 97 Oxygen Delivery Method Room Air Oxygen Flow Rate 0 Narrative Exam Narrative: GEN: no acute distress HEENT: moist mucous membranes, PERRL NECK: trachea midline, no JVD CV: regular rate and rhythm with no murmurs PULM: clear bilaterally, no wheezes, rhonchi, rales ABD: soft, diffusely tender, mildly distended, no rebound/guarding, decreased bowel sounds EXT: warm and well perfused with no edema SKIN: no rashes NEURO: awake, alert, oriented, no focal deficits Objective Labs Result Diagrams: 12/08/20 05:40 12/08/20 05:40 [facility] Medical History Allergies Anxiety Carbon monoxide exposure Cervical somatic dysfunction Chicken pox Chronic neck and back pain Circulation problem Cranial somatic dysfunction Depression Family history of cerebral aneurysm Foot abscess, left Foot pain Headache Hepatitis A Hepatitis C Panic anxiety syndrome Pelvic somatic dysfunction Right anterior knee pain Segmental and somatic dysfunction of abdomen and other regions Segmental and somatic dysfunction of lumbar region Segmental and somatic dysfunction of thoracic region Shoulder pain Sinusitis Skin problem Somatic dysfunction of sacral spine Tension headache, chronic Tobacco abuse disorder Upper extremity somatic dysfunction Vision disorder Surgical History H/O tubal ligation Hx of tonsillectomy No significant past surgical history Family History Father No problems noted. Mother Pneumonia Social History household members: friend(s) Smoking Status: Current every day smoker Assessment & Plan Assessment & Plan narrative: Ms. Mancera is a 60W who presents with abdominal pain found to have small bowel obstruction. 1. Acute small bowel obstruction -etiology not clear, less likely adhesions as no significant surgery -possibly inflammatory, infectious vs mass -surgery consulted -patient NPO initially, and advancing diet as tolerated -IV morhpine and zofran ordered -no NG tube for now as no vomiting 2. Transaminitis, resolving -etiology not clear, but improving -possibly from cirrhosis given nodular appearance of liver 3. Thrombocytopenia -has been thrombocytopenic in past -increases likelihood this is related to liver disease -no need for transfusion 4. UTI -UA positive, urine culture pending -ordered for ceftriaxone CODE: DNR Proxy: Roney Mancera, son I have utilized all available resources to review update, and confirm his current medications Time Spent With Patient Critical Care time: I spent a total of [] minutes of critical care time on this patient's care today; this time is exclusive of procedural time.
--- NOTE | 2020-12-09 16:32 | P.PN_ITS ---
Subjective Subjective Interval history: Gloria has tolerated diet without nausea and vomiting. She reports that she is passing flatus. Abdominal pain persists Exam Vital Signs (past 8 hours): - 12/09/20 09:41 12/09/20 12:00 12/09/20 15:15 Temperature 98.1 F 97.8 F Pulse Rate 84 88 Respiratory Rate 17 17 Blood Pressure 133/80 137/83 Pulse Oximetry 96 97 Oxygen Delivery Method Room Air Oxygen Flow Rate 0 Narrative Exam Narrative: Abdomen soft, moderately distended. No peritoneal findings Objective Labs Result Diagrams: 12/08/20 05:40 12/08/20 05:40 [facility] Medical History Allergies Anxiety Carbon monoxide exposure Cervical somatic dysfunction Chicken pox Chronic neck and back pain Circulation problem Cranial somatic dysfunction Depression Family history of cerebral aneurysm Foot abscess, left Foot pain Headache Hepatitis A Hepatitis C Panic anxiety syndrome Pelvic somatic dysfunction Right anterior knee pain Segmental and somatic dysfunction of abdomen and other regions Segmental and somatic dysfunction of lumbar region Segmental and somatic dysfunction of thoracic region Shoulder pain Sinusitis Skin problem Somatic dysfunction of sacral spine Tension headache, chronic Tobacco abuse disorder Upper extremity somatic dysfunction Vision disorder Surgical History H/O tubal ligation Hx of tonsillectomy No significant past surgical history Family History Father No problems noted. Mother Pneumonia Social History household members: friend(s) Smoking Status: Current every day smoker Assessment & Plan Assessment and plan (1) Small bowel obstruction: Status: Acute Plan: She is tolerating diet although she has no improvement in her abdominal complaints. Suspect she never actually had a bowel obstruction. Etiology of her abdominal pain is unknown. If she continues to tolerate a regular diet without nausea and vomiting she can be discharged and worked up further as an outpatient. Time Spent With Patient Critical Care time: I spent a total of [] minutes of critical care time on this patient's care today; this time is exclusive of procedural time.
[2020-12-09] MEDS: MORPHINE 4 MG/ML INJ IV (18:04)
[2020-12-10] MEDS: SODIUM CHLORIDE 0.9% 1,000 ML 125 ML IV (00:40)
[2020-12-10 00:45] VITALS: BP 157/94; PULSE 78; RESP 14; TEMP 36.8; O2SAT 95
[2020-12-10 04:35] VITALS: BP 155/99; PULSE 79; RESP 14; TEMP 36.3; O2SAT 95
[2020-12-10] MEDS: MORPHINE 4 MG/ML INJ IV (06:15)
[2020-12-10] MEDS: PANTOPRAZOLE DR 40 MG TABLET PO (06:15)
[2020-12-10 07:26] LABS: Hematocrit 39.4 % (36-46); Hemoglobin 13.9 g/dL (12.0-16.0); Mean Corpuscular HGB Conc 35.2 % (30-36); Mean Corpuscular Hemoglobin 33.1 PG (26-34); Mean Corpuscular Volume 93.9 fL (80-100); Platelet Count 113 X10^3/uL (150-400); Red Cell Distribution Width 12.5 % (11.6-14.8); White Blood Cell Count 6.3 X10^3/uL (4.5-11.0)
[2020-12-10 07:31] LABS: BUN Creatinine Ratio 14.6 (6-22); Blood Urea Nitrogen 7 mg/dL (7-17); Calcium 8.6 mg/dL (8.4-10.2); Carbon Dioxide 26 mmol/L (22-32); Chloride 103 mmol/L (98-107); Estimated Glomerular Filt Rate > 60.0 mL/min (>60); Glucose 149 mg/dL (80-110); HEMOLYSIS < 15 (0-50); Potassium 3.3 mmol/L (3.4-5.1); Sodium 136 mmol/L (137-145)
[2020-12-10 08:05] VITALS: BP 151/100; PULSE 84; RESP 15; TEMP 36.6; O2SAT 98
--- NOTE | 2020-12-10 08:34 | PC.NURSE ---
Patients bowel tones are active, she is distended but softer in abdomen. Patient is independent in her room. Denies pain now, states that morphine given earlier has been helpful for pain control. Eating breakfast with no nausea or issues.
[2020-12-10] MEDS: ENOXAPARIN 40 MG/0.4 ML SYRINGE SUBCUT (10:09)
[2020-12-10] MEDS: POTASSIUM CHLORIDE 20 MEQ TAB 40 MEQ PO ×2 (10:19→15:40)
--- NOTE | 2020-12-10 10:20 | DI.US.S_ITS ---
PROCEDURE: US ABDOMEN LIMITED INDICATIONS: RULE OUT GALLSTONES TECHNIQUE: Real-time focused scanning was performed of the abdomen, with image documentation. COMPARISON: [facility], CT, CT ABDOMEN PELVIS W CON, 12/07/2020, 12:40. [facility], US, US ABDOMEN COMPLETE, 10/16/2018, 8:53. FINDINGS: Liver: Coarsened echotexture. No evidence of focal mass lesion. No intra hepatic biliary ductal dilatation. Prominent main portal vein main measures 14.1 mm in diameter. Hepatopetal flow noted. Gallbladder: Biliary sludge and gallbladder wall thickening measures up to 6.9 mm. Minimal pericholecystic fluid present. Common Bile Duct: Not well visualized Pancreas: Unremarkable as visualized IMPRESSION: 1. Probable hepatic cirrhosis and prominent main portal vein consistent with portal hypertension. 2. Gallbladder wall thickening with biliary sludge and pericholecystic fluid. Wall thickening probably related to ascites. Dictated by: Duglas Ji M.D. on 12/10/2020 at 15:26 Approved by: Duglas Ji M.D. on 12/10/2020 at 15:30
--- NOTE | 2020-12-10 11:35 | PM.PN.1 ---
Subjective Subjective Date Patient Seen: 12/10/20 Interval history: Patient tolerated general diet. She is complaining of persistent abdominal pain. Exam Vital Signs (past 8 hours): - 12/10/20 04:35 12/10/20 08:05 Temperature 97.4 F L 97.8 F Pulse Rate 79 84 Respiratory Rate 14 15 Blood Pressure 155/99 H 151/100 H Pulse Oximetry 95 98 Oxygen Delivery Method Room Air Oxygen Flow Rate 0 Narrative Exam Narrative: General: Alert and in no acute distress Lungs: Clear to auscultation Heart: Regular rhythm Abdomen: Soft, tender epigastric Extremities: No edema Objective Labs Result Diagrams: 12/10/20 06:58 12/10/20 06:58 Labs: Laboratory Results - last 24 hr 12/10/20 12/10/20 06:58 06:58 WBC 6.3 RBC 4.20 Hgb 13.9 Hct 39.4 MCV 93.9 MCH 33.1 MCHC 35.2 RDW 12.5 Plt Count 113 L Sodium 136 L Potassium 3.3 L Chloride 103 Carbon Dioxide 26 BUN 7 Creatinine 0.48 L Estimated GFR > 60.0 BUN/Creatinine Ratio 14.6 Glucose 149 H Calcium 8.6 PFSH Medical History Allergies Anxiety Carbon monoxide exposure Cervical somatic dysfunction Chicken pox Chronic neck and back pain Circulation problem Cranial somatic dysfunction Depression Family history of cerebral aneurysm Foot abscess, left Foot pain Headache Hepatitis A Hepatitis C Panic anxiety syndrome Pelvic somatic dysfunction Right anterior knee pain Segmental and somatic dysfunction of abdomen and other regions Segmental and somatic dysfunction of lumbar region Segmental and somatic dysfunction of thoracic region Shoulder pain Sinusitis Skin problem Somatic dysfunction of sacral spine Tension headache, chronic Tobacco abuse disorder Upper extremity somatic dysfunction Vision disorder Surgical History H/O tubal ligation Hx of tonsillectomy No significant past surgical history Family History Father No problems noted. Mother Pneumonia Social History household members: friend(s) Smoking Status: Current every day smoker Assessment & Plan Assessment & Plan narrative: Ms. Mancera is a 60W who presents with abdominal pain found to have small bowel obstruction. 1. Acute abdominal pain -etiology not clear, small-bowel obstruction clinically ruled out, differential includes inflammatory bowel disease, gallstone disease, peptic ulcer disease -CT showed hyperemic and thickened small bowel loops -appreciate surgery consult with Dr. Garcia -tolerating general diet -abdominal ultrasound rule out gallstone disease -per surgery can discharge home if abdominal ultrasound looks okay -patient can follow-up with Dr. Garcia is outpatient with consideration of upper and lower endoscopy 2. Transaminitis, resolving -etiology not clear, but improving -possibly from cirrhosis given nodular appearance of liver 3. Thrombocytopenia -has been thrombocytopenic in past -increases likelihood this is related to liver disease -no need for transfusion 4. UTI, ruled out -UA positive, urine culture negative -discontinued antibiotic CODE: DNR Proxy: davis Spann Time Spent With Patient Critical Care time: I spent a total of [] minutes of critical care time on this patient's care today; this time is exclusive of procedural time.
--- NOTE | 2020-12-10 11:44 | PM.DS.1 ---
History of Present Illness History of Present Illness Chief complaint: Severe abd pain, no bowel movements Narrative: Ms. Mancera is a 60W with PMH depression, documented previously Hep A/C, not on deanna medications who presents to the hospital with abdominal pain. She states for the last 4-5 days she has noted she has abdominal discomfort. She has not wanted to eat anything. She has not had nausea/vomiting. She has not had a bowel movement in a few days. No fevers/chills. No significant abdominal surgeries. Never had abdominal issues like this previously. In the ED, workup was done, vitals notable for a mildly elevated blood pressure. Labs notable for WBC 11.9, Hgb 16.2, platelets 123, Na 135, creatinine 0.38. Lactate 1.8. Bilirubin 1.7, ast 96, alt 121. UA with +WBC, few bacteria. COVID negative. CT abdomen with distended proximal small bowel loops with transition pint in right abdomen. Also noted bowel hyperemia and thickening. Also noted liver nodular with small ascites. She was admitted for further treatment. Discharge Providers Provider Date of admission: 12/07/20 14:18 Discharge Date: 12/10/20 Primary care physician: Teddy Mendez DO Consults: 12/07/20 14:01 Consult to General Surgery Stat Comment: Consulting Provider: Tushar Garcia Reason for consultation: SBO Has provider been notified: Yes Discharge provider: Domingo Lala MD Summary Hospital Course Discharge Diagnosis: 1. Acute abdominal pain undetermined etiology 2. Cirrhosis 3. Mild thrombocytopenia 4. Transaminitis Patient admitted due to acute abdominal pain. Initial CT concerning for small bowel obstruction but this was clinically ruled out. Dr. Garcia was consulted for surgery. CT also showed hyperemic and thickened small bowel loops which could be consistent IBD versus infectious cause. Patient is tolerating general diet and passing flatus prior to discharge. An abdominal ultrasound is pending to rule out gallstone disease. Assuming this is normal she can be discharged home and follow-up with Dr. Garcia in the clinic. Dr. Garcia did discuss consideration of upper and lower endoscopy which can be done as outpatient. Status at Discharge Cognitive/behavioral status at discharge: oriented Functional status at discharge: independent ambulation Overall status at discharge: patient is progressing back to baseline Time Spent with Patient Time spent: Greater than 30 minutes Exam Vital Signs (past 8 hours): - 12/10/20 04:35 12/10/20 08:05 Temperature 97.4 F L 97.8 F Pulse Rate 79 84 Respiratory Rate 14 15 Blood Pressure 155/99 H 151/100 H Pulse Oximetry 95 98 Oxygen Delivery Method Room Air Oxygen Flow Rate 0 Objective Labs Result Diagrams: 12/10/20 06:58 12/10/20 06:58 Labs: Laboratory Results - last 24 hr 12/10/20 12/10/20 06:58 06:58 WBC 6.3 RBC 4.20 Hgb 13.9 Hct 39.4 MCV 93.9 MCH 33.1 MCHC 35.2 RDW 12.5 Plt Count 113 L Sodium 136 L Potassium 3.3 L Chloride 103 Carbon Dioxide 26 BUN 7 Creatinine 0.48 L Estimated GFR > 60.0 BUN/Creatinine Ratio 14.6 Glucose 149 H Calcium 8.6 PFSH Medical History Allergies Anxiety Carbon monoxide exposure Cervical somatic dysfunction Chicken pox Chronic neck and back pain Circulation problem Cranial somatic dysfunction Depression Family history of cerebral aneurysm Foot abscess, left Foot pain Headache Hepatitis A Hepatitis C Panic anxiety syndrome Pelvic somatic dysfunction Right anterior knee pain Segmental and somatic dysfunction of abdomen and other regions Segmental and somatic dysfunction of lumbar region Segmental and somatic dysfunction of thoracic region Shoulder pain Sinusitis Skin problem Somatic dysfunction of sacral spine Tension headache, chronic Tobacco abuse disorder Upper extremity somatic dysfunction Vision disorder Surgical History H/O tubal ligation Hx of tonsillectomy No significant past surgical history Family History Father No problems noted. Mother Pneumonia Social History household members: friend(s) Smoking Status: Current every day smoker Discharge Plan Discharge Plan Patient Disposition: Home Discharge orders & Medications Prescriptions: No Action No Known Home Medications RF: 0 Follow up/Referrals: Tushar Garcia MD [Physician] - 1 Week Teddy Mendez DO [Primary Care Provider] - Diet/Activity/Treatments Diet: Diet as Tolerated Discharge Data Primary Care Provider: Teddy Mendez Attending Provider: Juancarlos Morales
[2020-12-10 15:44] VITALS: O2SAT 97
[2020-12-10 15:46] VITALS: BP 160/101; PULSE 87; RESP 14; TEMP 36.3; O2SAT 97
--- NOTE | 2020-12-10 16:51 | PM.PN.1 ---
Subjective Subjective Date Patient Seen: 12/10/20 Interval history: Tolerating diet. Continues to endorse abdominal pain and it is now more focal in the epigastric region. An abdominal ultrasound was performed today to rule out gallstones. She does have some gallbladder sludge but more significantly she has evidence of cirrhosis and portal hypertension. Exam Vital Signs (past 8 hours): - 12/10/20 15:44 12/10/20 15:46 Temperature 97.4 F L Pulse Rate 87 Respiratory Rate 14 Blood Pressure 160/101 H Pulse Oximetry 97 97 Oxygen Delivery Method Room Air Oxygen Flow Rate 0 GI Other: Tender to palpation without peritonitis. No Nguyen sign. Objective Labs Result Diagrams: 12/10/20 06:58 12/10/20 06:58 Labs: Laboratory Results - last 24 hr 12/10/20 12/10/20 06:58 06:58 WBC 6.3 RBC 4.20 Hgb 13.9 Hct 39.4 MCV 93.9 MCH 33.1 MCHC 35.2 RDW 12.5 Plt Count 113 L Sodium 136 L Potassium 3.3 L Chloride 103 Carbon Dioxide 26 BUN 7 Creatinine 0.48 L Estimated GFR > 60.0 BUN/Creatinine Ratio 14.6 Glucose 149 H Calcium 8.6 PFSH Medical History (Updated 12/10/20 @ 16:54 by Tushar Garcia MD) Abdominal pain Allergies Anxiety Carbon monoxide exposure Cervical somatic dysfunction Chicken pox Chronic neck and back pain Circulation problem Cranial somatic dysfunction Depression Family history of cerebral aneurysm Foot abscess, left Foot pain Headache Hepatitis A Hepatitis C Panic anxiety syndrome Pelvic somatic dysfunction Right anterior knee pain Segmental and somatic dysfunction of abdomen and other regions Segmental and somatic dysfunction of lumbar region Segmental and somatic dysfunction of thoracic region Shoulder pain Sinusitis Skin problem Somatic dysfunction of sacral spine Tension headache, chronic Tobacco abuse disorder Upper extremity somatic dysfunction Vision disorder Surgical History H/O tubal ligation Hx of tonsillectomy No significant past surgical history Family History Father No problems noted. Mother Pneumonia Social History household members: friend(s) Smoking Status: Current every day smoker Assessment & Plan Assessment and plan (1) Abdominal pain: Qualifiers: Abdominal location: epigastric Qualified Code(s): R10.13 - Epigastric pain Status: Acute Plan: No current evidence of bowel obstruction. She has gallbladder sludge without evidence of cholecystitis or cholelithiasis. She does have evidence of liver disease with likely portal hypertension. Recommend she follow-up with GI as an outpatient for further workup of liver disease. Okay to discharge from a surgical standpoint. Time Spent With Patient Critical Care time: I spent a total of [] minutes of critical care time on this patient's care today; this time is exclusive of procedural time.
--- NOTE | 2020-12-10 17:28 | PC.NURSE ---
Addendum entered by Lissa Coles R.N. 12/10/20 19:18: 1750: Pt escorted via wheelchair by CASH MANAGEMENT ASSOCIATE to private vehicle with friend as designated dedicated regional driver. Pt left hospital in stable condition. Addendum entered by Lissa Coles R.N. 12/10/20 17:45: Pt has ride available and ready to transport pt to home. Discussion with pt re pain medications as pt is requesting pain medication prior to discharge. Informed pt if this health science writer medicates pt for pain, pt has to remain in hospital @ least 30 minutes for monitoring. Pt states just wants to leave now that is discharged. IV removed intact, discharge instructions provided in written and verbal format. Questions answered as appropriate. Pt dresses self. Declines any further food or fluids. Original Note: Abdominal ultrasound completed @ beginning of evening shift. Pt taking popsicle and does c/o abdominal pain. Was offered pain medications and pt declined. Phone call from Dr. Garcia with message to relay to hospitalist pt can be discharged from surgical standpoint with follow up to GI specialist as outpatient. Dr. Morales was informed of this conversation with surgeon.
== END 2020-12-10 17:50 | disposition home or self-care (01) ==
LOC: ED 14:02 → AC 15:14
PROVIDERS: Admitting Provider Internal Medicine; Emergency Provider Emergency Medicine; PCP Family Medicine; Referring Provider Emergency Medicine; Visit Provider Internal Medicine
DX: R10.9 Unspecified abdominal pain (principal); D69.6 Thrombocytopenia, unspecified; R74.01 Elevation of levels of liver transaminase levels; K74.60 Unspecified cirrhosis of liver; F17.210 Nicotine dependence, cigarettes, uncomplicated; F32.9 Major depressive disorder, single episode, unspecified; Z86.19 Personal history of other infectious and parasitic diseases; Z20.822 Contact with and (suspected) exposure to COVID-19; Z23 Encounter for immunization
CPT/HCPCS: 36415; 74177; 76705; 80048; 80053; 80076; 81003; 81015; 83605; 83690; 83735; 85025; 85027; 87086; 87635; 90471; 90656; 94760; 96361; 96365; 96366; 99224; 99225; 99284; C9803; G0378; C9113; J0696; J1650; J2270; Q2038; Q9967

== ENCOUNTER → 2021-05-16 13:21 | Outpatient (CLI) | payer OTHER, MEDICAID, SELFPAY ==
[2020-12-07 16:10] VITALS: BMI 21.3
[2021-05-16 16:01] LABS: COVID-19 CEPHEID PCR (VTM/NP) Negative (Negative)
== END ==
PROVIDERS: PCP Family Medicine; Visit Provider Family Medicine Sleep Medicine
DX: Z20.822 Contact with and (suspected) exposure to COVID-19 (principal)
CPT/HCPCS: C9803; U0003; U0005

== ENCOUNTER 2021-07-13 20:54 | Emergency (ER) | payer OTHER, MEDICAID, SELFPAY ==
[2020-12-07 16:10] VITALS: BMI 21.3
[2021-07-13 21:15] VITALS: BP 130/91; PULSE 117; RESP 22; TEMP 36.7; O2SAT 98
--- NOTE | 2021-07-13 21:20 | DI.RAD.S_ITS ---
PROCEDURE: XR WRIST RT MIN 3V INDICATIONS: pain/swelling no known injury TECHNIQUE: 4 views of the wrist were acquired. COMPARISON: None. FINDINGS: Bones: No fractures or dislocations. There is mild radiocarpal joint degeneration. No suspicious bony lesions. Scaphoid view: Scaphoid appears intact. Soft tissues: No suspicious soft tissue calcifications. IMPRESSION: 1. No fracture or dislocation. Dictated by: Godwin Elmore M.D. on 07/13/2021 at 22:52 Approved by: oGdwin Elmore M.D. on 07/13/2021 at 22:53
--- NOTE | 2021-07-13 21:54 | ED.GENADULT ---
HPI - General Adult General Chief complaint: Extremity Injury, Upper Stated complaint: rt wrist to elbow bruising Time Seen by Provider: 07/13/21 21:52 Source: patient Mode of arrival: Ambulatory History of Present Illness HPI narrative: 61-year-old female who is here for evaluation of bruising of her right forearm. Six that it extends from her wrist up to her mid forearm. She denies any specific trauma. She does lift heavy objects while at work but does not remember any hitting it in any specific incident. She is not on blood thinners. She does report some pain in the wrist. Related Data Previous Rx's Medication Instructions Recorded pantoprazole 40 mg tablet,delayed 40 mg PO 0700 #30 tab 12/10/20 release Allergies Allergy/AdvReac Type Severity Reaction Status Date / Time procaine [From NOVOCAIN] Allergy Mild RASH Verified 01/20/21 11:24 Review of Systems Musculoskeletal Musculoskeletal: Reports system reviewed and no additional complaints, except as documented and Reports as per HPI Integumentary/Breasts Skin/Breast: Reports system reviewed and no additional complaints, except as documented and Reports as per HPI Neurologic Neurologic: Reports system reviewed and no additional complaints, except as documented Hematologic/Lymphatic On Anticoagulants: No Patient History Medical History Abdominal pain Alcoholic cirrhosis of liver Allergies Anxiety Carbon monoxide exposure Cervical somatic dysfunction Chicken pox Chronic neck and back pain Circulation problem Cranial somatic dysfunction Depression Family history of cerebral aneurysm Foot abscess, left Foot pain Headache Hepatitis A Hepatitis C Panic anxiety syndrome Pelvic somatic dysfunction Right anterior knee pain Segmental and somatic dysfunction of abdomen and other regions Segmental and somatic dysfunction of lumbar region Segmental and somatic dysfunction of thoracic region Shoulder pain Sinusitis Skin problem Somatic dysfunction of sacral spine Tension headache, chronic Tobacco abuse disorder Transaminitis Upper extremity somatic dysfunction Vision disorder Surgical History H/O tubal ligation Hx of tonsillectomy No significant past surgical history Family History Father No problems noted. Mother Pneumonia Social History household members: friend(s) Smoking Status: Current every day smoker Smoking Status: Current every day smoker tobacco type: cigarettes alcohol intake frequency: holidays/special occasions only Substance Use Type: marijuana and methamphetamine Exam Initial Vital Signs Initial Vital Signs: Vital Signs Temperature 98.1 F 07/13/21 21:15 Pulse Rate 117 H 07/13/21 21:15 Respiratory Rate 22 07/13/21 21:15 Blood Pressure 130/91 H 07/13/21 21:15 Pulse Oximetry 98 07/13/21 21:15 Cardio Pulses: radial pulses present on the right Skin Other: Patient does have bruising located mostly on the volar aspect of the distal 1/3 of the right forearm. Neuro Sensory Exam: no sensory deficits noted Extrem Other: No right shoulder or right elbow tenderness. Does have tenderness along the bruising and also at the wrist. Procedures Orthopedic Splinting/Casting Injury #1: Side: right Upper Extremity Injury Location: wrist Upper Extremity Immobilizer: wrist splint Post splinting neuro exam: intact Post splinting vascular exam: intact Placed by: Nursing Course Orders Ordered: ED Orders 07/13/21 21:20 XR wrist RT min 3V Stat Vital Signs Vital signs: Vital Signs - 8 hr 07/13/21 21:15 07/13/21 23:11 Temperature 98.1 F Pulse Rate 117 H 90 Respiratory Rate 22 16 Blood Pressure 130/91 H 130/90 Pulse Oximetry 98 99 Medical Decision Making Imaging Data Extremity x-ray #1: Radiologist's Impression: [place] [address] XRay Report Signed Patient: Gloria Mancera MR#: [id number] : 1960 Acct:[id number] Age/Sex: 61 / F Date of Service: 07/13/21 Loc: ED Accession Number: [id number] ?? Procedure: XR wrist RT min 3V Ordering Provider: Frank Jimenez D.O. PROCEDURE:? XR WRIST RT MIN 3V ? INDICATIONS: pain/swelling no known injury ? TECHNIQUE:? 4 views of the wrist were acquired.? ? COMPARISON:? None. ? FINDINGS:? ? Bones:? No fractures or dislocations.? There is mild radiocarpal joint degeneration.? No suspicious bony lesions.? ? Scaphoid view:? Scaphoid appears intact. ? Soft tissues:? No suspicious soft tissue calcifications.? ? IMPRESSION:? ? 1. No fracture or dislocation. ? ? Dictated by: Godwin Elmore M.D. on 07/13/2021 at 22:52 ? ? Approved by: Godwin Elmore M.D. on 07/13/2021 at 22:53 MDM Narrative Medical decision making narrative: She is neurovascularly intact. No specific trauma that would explain her presenting symptoms. Compartments are soft. X-ray showed no signs of fracture dislocation. She was placed in a Velcro removable splint for her comfort. She was given care instructions and return precautions. She expressed understanding and agreement. Discharge Plan Departure Patient Disposition: Home Clinical Impression: Superficial bruising of arm Instructions: DI for Contusion Activity Restrictions/Additional Instructions: There were no fractures nor dislocations noted on the x-ray. It does not appear to be any signs of an infection. I recommend that you rest your wrist and use ice. You Can use the wrist brace as needed. Contact your primary doctor for a follow-up. Return to the emergency department for any new or worsening symptoms. Prescriptions: No Action pantoprazole 40 mg Tablet,Delayed Release (Dr/Ec) 40 mg PO 0700 Qty: 30 0RF Referrals: Teddy Mendez DO [Primary Care Provider] -
[2021-07-13 23:11] VITALS: BP 130/90; PULSE 90; RESP 16; O2SAT 99
== END 2021-07-13 23:11 | disposition home or self-care (01) ==
PROVIDERS: Emergency Provider Emergency Medicine; PCP Family Medicine
DX: S40.021A Contusion of right upper arm, initial encounter (principal)
CPT/HCPCS: 73110; 99282; 99283

== ENCOUNTER → 2021-08-29 14:54 | Outpatient (CLI) | payer OTHER, MEDICAID, SELFPAY ==
[2020-12-07 16:10] VITALS: BMI 21.3
== END ==
PROVIDERS: PCP Family Medicine; Visit Provider Physician Assistant
DX: N89.8 Other specified noninflammatory disorders of vagina (principal); N34.3 Urethral syndrome, unspecified
CPT/HCPCS: 81002; 87086; 87210

== ENCOUNTER → 2022-09-11 14:04 | Outpatient (CLI) | payer OTHER, MEDICAID, SELFPAY ==
[2021-11-16 16:27] VITALS: BMI 21.3
== END ==
PROVIDERS: PCP Family Medicine; Visit Provider Nurse Practitioner Family
DX: N89.8 Other specified noninflammatory disorders of vagina (principal); N93.9 Abnormal uterine and vaginal bleeding, unspecified
CPT/HCPCS: 81002; 87077; 87086; 87186; 87210

== ENCOUNTER → 2022-09-18 13:27 | Outpatient (CLI) | payer OTHER, MEDICAID, SELFPAY ==
[2021-11-16 16:27] VITALS: BMI 21.3
--- NOTE | 2022-09-18 13:28 | DI.US.S_ITS ---
PROCEDURE: US PELVIC COMPLETE INDICATIONS: SPOTTING TECHNIQUE: Real-time scanning was performed of the pelvic organs, with image documentation. Additional endovaginal scanning was necessary due to incomplete visualization of the adnexal and endometrial structures by transabdominal scanning. COMPARISON: None. FINDINGS: Uterus: Uterus is anteverted and normal in size at 5.2 x 2.2 x 4.0 cm. The myometrium is homogeneous. The endometrium measures 7 mm combined thickness. Endometrium appears mildly heterogeneous. Ovaries: The right ovary measures 1.3 x 2.3 x 1.0 cm, with a calculated ovarian volume of 1.2 cc. The left ovary is not visualized. No adnexal masses are seen. Other: No pathologic free abdominal or pelvic fluid. IMPRESSION: 1. Thickened and mildly heterogeneous endometrium measuring up to 7 mm. Recommend endometrial biopsy for further evaluation in the setting of postmenopausal bleeding. 2. Left ovary is not visualized. Approved by: Gary Ladd M.D. on 09/18/2022 at 21:17
== END ==
PROVIDERS: PCP Family Medicine; Referring Provider Specialist; Visit Provider Specialist
DX: N93.9 Abnormal uterine and vaginal bleeding, unspecified (principal); R93.89 Abnormal findings on diagnostic imaging of other specified body structures
CPT/HCPCS: 76830; 76856

== ENCOUNTER → 2022-09-29 16:57 | Outpatient (CLI) | payer OTHER, MEDICAID, SELFPAY ==
[2021-11-16 16:27] VITALS: BMI 21.3
[2022-09-29 18:32] LABS: Bilirubin Urine UA NEGATIVE (NEGATIVE); Color Urine UA YELLOW; Glucose Urine UA NEGATIVE (Negative); Ketones Urine UA NEGATIVE (NEGATIVE); Leukocyte Esterase Urine UA 1+ (NEGATIVE); Nitrite Urine UA NEGATIVE (Negative); Occult Blood Urine UA 1+ (Negative); Protein Urine UA NEGATIVE (Negative); Specific Gravity Urine UA 1.025 (1.000-1.035)
[2022-09-29 18:36] LABS: Appearance Urine UA SL CLOUDY
[2022-09-29 19:30] LABS: Bacteria Urine Few (2-10); Culture Indicated Urine Specimen Cultured; RBC Urine 0-1/HPF (0-5/HPF); Squamous Epithelial Cell Urine >30 /HPF (0-5/HPF); WBC Urine 5-10/HPF (0-5/HPF)
== END ==
PROVIDERS: PCP Family Medicine; Visit Provider Obstetrics & Gynecology
DX: R30.0 Dysuria (principal); R39.89 Other symptoms and signs involving the genitourinary system
CPT/HCPCS: 81001; 87086

== ENCOUNTER → 2022-12-14 08:58 | Outpatient (CLI) | payer OTHER, MEDICAID, SELFPAY ==
[2021-11-16 16:27] VITALS: BMI 21.3
[2022-12-14 10:00] LABS: Add Manual Diff / Slide Review NO; Basophils Absolute Auto 0 /uL (0-100); Basophils Percent Auto 0.9 % (0-2); Eosinophils Absolute Auto 100 /uL (0-450); Eosinophils Percent Auto 2.7 % (2-4); Hematocrit 37.3 % (36-46); Lymphocytes Absolute Auto 1500 /uL (1100-4500); Lymphocytes Percent Auto 33.8 % (25-40); Mean Corpuscular HGB Conc 34.8 % (30-36); Mean Corpuscular Hemoglobin 31.7 PG (26-34); Mean Corpuscular Volume 91.1 fL (80-100); Monocytes Absolute Auto 400 /uL (0-900); Monocytes Percent Auto 9.8 % (3-14); Neutrophils Absolute Auto 2300 /uL (1500-7000); Neutrophils Percent Auto 52.8 % (50-75); Platelet Count 91 X10^3/uL (150-400); Red Blood Cell Count 4.09 X10^6/uL (4.0-5.2); Red Cell Distribution Width 12.7 % (11.6-14.8); White Blood Cell Count 4.4 X10^3/uL (4.5-11.0)
[2022-12-14 10:19] LABS: Erythrocyte Sedimentation Rate 9 MM/HR (0-20)
[2022-12-14 10:28] LABS: Alanine Aminotransferase 88 IU/L (<35); Albumin 3.6 g/dL (3.5-5.0); Albumin Globulin Ratio 1.3 (1.0-2.8); Alkaline Phosphatase 108 U/L (38-126); Aspartate Aminotransferase 128 IU/L (14-36); BUN Creatinine Ratio 22.2 (6-22); Bilirubin Total 0.5 mg/dL (0.2-1.3); Blood Urea Nitrogen 14 mg/dL (7-17); C-Reactive Protein Quant < 0.5 mg/dL (<1.0); Carbon Dioxide 30 mmol/L (22-32); Chloride 103 mmol/L (98-107); Cholesterol 114 mg/dL (140-199); Estimated Glomerular Filt Rate > 60 mL/min (>60); Globulin 2.8 g/dL (1.7-4.1); Glucose 101 mg/dL (80-110); HDL Cholesterol 42 mg/dL (40-60); HEMOLYSIS < 15 (0-50); LDL Cholesterol Calculated 51 mg/dL (<100); Potassium 3.8 mmol/L (3.4-5.1); Sodium 137 mmol/L (137-145); Total Protein 6.4 g/dL (6.3-8.2); Triglycerides 105 mg/dL (35-150)
[2022-12-14 10:38] LABS: Vitamin D 25 Hydroxy (D3) 45.1 ng/mL (30.0-100.0)
[2022-12-14 11:05] LABS: Vitamin B12 954 pg/mL (239-931)
== END ==
PROVIDERS: PCP Family Medicine; Referring Provider Family Medicine; Visit Provider Family Medicine
DX: I10 Essential (primary) hypertension (principal); M25.60 Stiffness of unspecified joint, not elsewhere classified; E53.8 Deficiency of other specified B group vitamins
CPT/HCPCS: 36415; 80053; 80061; 82306; 82607; 85025; 85651; 86140

== ENCOUNTER → 2023-03-22 15:10 | Outpatient (CLI) | payer OTHER, MEDICAID, SELFPAY ==
[2021-11-16 16:27] VITALS: BMI 21.3
[2023-03-22 16:16] LABS: Add Manual Diff / Slide Review NO; Basophils Absolute Auto 0 /uL (0-100); Basophils Percent Auto 0.7 % (0-2); Eosinophils Absolute Auto 100 /uL (0-450); Eosinophils Percent Auto 1.8 % (2-4); Hematocrit 38.2 % (36-46); Hemoglobin 13.3 g/dL (12.0-16.0); Lymphocytes Absolute Auto 1700 /uL (1100-4500); Lymphocytes Percent Auto 28.4 % (25-40); Mean Corpuscular HGB Conc 34.7 % (30-36); Mean Corpuscular Hemoglobin 31.4 PG (26-34); Mean Corpuscular Volume 90.5 fL (80-100); Monocytes Absolute Auto 500 /uL (0-900); Monocytes Percent Auto 7.8 % (3-14); Neutrophils Absolute Auto 3700 /uL (1500-7000); Neutrophils Percent Auto 61.3 % (50-75); Platelet Count 125 X10^3/uL (150-400); Red Blood Cell Count 4.22 X10^6/uL (4.0-5.2); Red Cell Distribution Width 13.8 % (11.6-14.8)
[2023-03-22 17:06] LABS: Alanine Aminotransferase 106 IU/L (<35); Albumin Globulin Ratio 1.2 (1.0-2.8); Alkaline Phosphatase 140 U/L (38-126); Aspartate Aminotransferase 126 IU/L (14-36); BUN Creatinine Ratio 25.4 (6-22); Bilirubin Total 0.8 mg/dL (0.2-1.3); Blood Urea Nitrogen 17 mg/dL (7-17); Calcium 9.4 mg/dL (8.4-10.2); Carbon Dioxide 25 mmol/L (22-32); Chloride 104 mmol/L (98-107); Cholesterol 101 mg/dL (140-199); Estimated Glomerular Filt Rate > 60 mL/min (>60); Globulin 3.3 g/dL (1.7-4.1); Glucose 113 mg/dL (80-110); HDL Cholesterol 31 mg/dL (40-60); HEMOLYSIS < 15 (0-50); LDL Cholesterol Calculated 33 mg/dL (<100); Potassium 3.9 mmol/L (3.4-5.1); Sodium 139 mmol/L (137-145); Total Protein 7.3 g/dL (6.3-8.2); Triglycerides 184 mg/dL (35-150)
[2023-03-22 17:34] LABS: TSH w/ Reflex to FT4 1.85 uIU/mL (0.47-4.68)
== END ==
PROVIDERS: PCP Family Medicine; Referring Provider Family Medicine; Visit Provider Family Medicine
DX: I10 Essential (primary) hypertension (principal); K70.30 Alcoholic cirrhosis of liver without ascites; R74.01 Elevation of levels of liver transaminase levels; R79.89 Other specified abnormal findings of blood chemistry; L65.9 Nonscarring hair loss, unspecified; Z72.0 Tobacco use
CPT/HCPCS: 36415; 80053; 80061; 84443; 85025

== ENCOUNTER → 2023-03-23 10:23 | Outpatient (CLI) | payer OTHER, MEDICAID, SELFPAY ==
[2021-11-16 16:27] VITALS: BMI 21.3
[2023-03-23 12:14] LABS: Hep C Virus Ab w/Reflex Quant REACTIVE s/c (NEGATIVE)
[2023-03-23 15:31] LABS: Creatinine Urine Random 138.1 mg/dL
[2023-03-23 15:35] LABS: Microalbumi Creatinin Ratio Ur 21.7 ug/mg CR (<30)
[2023-03-24 07:58] LABS: Toxoplasma gohndii IgG <3.0 IU/mL (0.0-7.1); Toxoplasma gondii IgM <3.0 AU/mL (0.0-7.9)
[2023-03-29 21:49] LABS: HCV Genotype 3 (.); HCV LOG 10 6.757 (.)
== END ==
PROVIDERS: PCP Family Medicine; Referring Provider Family Medicine; Visit Provider Family Medicine
DX: B19.20 Unspecified viral hepatitis C without hepatic coma (principal); R68.89 Other general symptoms and signs; T75.89XA Other specified effects of external causes, initial encounter; I10 Essential (primary) hypertension
CPT/HCPCS: 36415; 82043; 82570; 86777; 86778; 86803; 87522

== ENCOUNTER → 2023-05-17 14:31 | Outpatient (CLI) | payer OTHER, MEDICAID, SELFPAY ==
[2021-11-16 16:27] VITALS: BMI 21.3
--- NOTE | 2023-05-17 14:32 | DI.RAD.S_ITS ---
PROCEDURE: XR CHEST 2V INDICATIONS: Cough worse x1 month TECHNIQUE: 2 views of the chest were acquired. COMPARISON: [facility], CR, XR CHEST 1V, 09/16/2020, 23:25. FINDINGS: Surgical changes and devices: None. Lungs and pleura: There is hyperinflation and chronic interstitial changes without focal infiltrate, pleural effusion or pneumothorax. Mediastinum: Mediastinal contours are normal. Heart size is normal. Bones and chest wall: No suspicious bony abnormalities. Soft tissues appear unremarkable. IMPRESSION: Pulmonary hyperinflation. No focal infiltrate. Approved by: Duglas Ji M.D. on 05/17/2023 at 16:05
== END ==
PROVIDERS: Family Provider Family Medicine; PCP Family Medicine; Referring Provider Physician Assistant; Visit Provider Physician Assistant
DX: R05.9 Cough, unspecified (principal)
CPT/HCPCS: 71046

== ENCOUNTER → 2023-06-18 13:02 | Outpatient (CLI) | payer OTHER, MEDICAID, SELFPAY ==
[2021-11-16 16:27] VITALS: BMI 21.3
== END ==
PROVIDERS: Family Provider Family Medicine; PCP Family Medicine; Referring Provider Internal Medicine Infectious Disease; Visit Provider Internal Medicine Infectious Disease
DX: B19.20 Unspecified viral hepatitis C without hepatic coma (principal)
CPT/HCPCS: 36415; 87522

== ENCOUNTER → 2023-06-18 13:12 | Outpatient (CLI) | payer OTHER, MEDICAID, SELFPAY ==
[2021-11-16 16:27] VITALS: BMI 21.3
--- NOTE | 2023-06-18 13:13 | DI.US.S_ITS ---
PROCEDURE: US ABDOMEN LIMITED INDICATIONS: Unspecified viral hepatitis C without hepatic coma TECHNIQUE: Real-time scanning was performed of the abdominal and retroperitoneal organs, with image documentation. COMPARISON: [facility], , US ABDOMEN LIMITED, 12/10/2020, 14:52. FINDINGS: Liver: Normal in size measuring 14.7 centimeters with a coarsened echotexture. There is a mildly echogenic lesion in the right hepatic lobe measuring 1.1 x 1.1 x 1.2 centimeters without vascularity. Gallbladder: Multiple small gallstones measuring up to 4 millimeters. No wall thickening. No pericholecystic edema. Negative sonographic Nguyen's sign. Biliary ducts: Intrahepatic bile ducts are non-dilated. Extrahepatic bile duct caliber measures 4.6 mm. Normal is 6-7 mm or less in diameter, or 10 mm or less post-cholecystectomy. Pancreas: Visualized portions of the pancreas are sonographically normal. Spleen: Spleen is enlarged measuring up to 16.1 centimeters. Miscellaneous: No free abdominal fluid. IMPRESSION: 1. Coarsened echotexture to the liver, suggestive of chronic liver disease. There is a mildly echogenic lesion within the right hepatic lobe measuring 1.2 centimeters. This is not seen on prior exam. Malignancy cannot be excluded and recommend further evaluation with liver protocol MRI or CT. 2. The spleen is enlarged raising concern for portal hypertension. 3. Cholelithiasis. Dictated by: Los Randolph M.D. on 06/18/2023 at 15:10 Approved by: Los Randolph M.D. on 06/18/2023 at 15:15
== END ==
PROVIDERS: Family Provider Family Medicine; PCP Family Medicine; Referring Provider Internal Medicine Infectious Disease; Visit Provider Internal Medicine Infectious Disease
DX: B19.20 Unspecified viral hepatitis C without hepatic coma (principal); K76.9 Liver disease, unspecified; K80.20 Calculus of gallbladder without cholecystitis without obstruction; R16.1 Splenomegaly, not elsewhere classified
CPT/HCPCS: 36415; 76705; 87522

== ENCOUNTER 2023-08-02 14:35 | Emergency (ER) | payer OTHER, MEDICAID, SELFPAY ==
[2021-11-16 16:27] VITALS: BMI 21.3
[2023-08-02 14:40] VITALS: BP 127/87; PULSE 97; RESP 16; TEMP 36.7; O2SAT 95
[2023-08-02] MEDS: ACETAMINOPHEN 325 MG TABLET 975 MG PO (14:49)
[2023-08-02 15:40] LABS: Adenovirus Not Detected (Not Detect); B. parapertussis Not Detected (Not Detecte); Bordetella pertussis Not Detected (Not Detect); Chlamydophila pneumoniae Not Detected (Not Detect); Coronavirus 229E Not Detected (Not Detect); Coronavirus HKU1 Not Detected (Not Detect); Coronavirus NL 63 Not Detected (Not Detect); Coronavirus OC43 Not Detected (Not Detect); Human Metapneumovirus Detected (Not Detect); Human Rhinovirus/Enterovirus Not Detected (Not Detect); Influenza A Not Detected (Not Detect); Influenza B Not Detected (Not Detect); Mycoplasma pneumoniae Not Detected (Not Detect); Parainfluenza Virus 1 Not Detected (Not Detect); Parainfluenza Virus 2 Not Detected (Not Detect); Parainfluenza Virus 3 Not Detected (Not Detect); Parainfluenza Virus 4 Not Detected (Not Detect); Respiratory Syncytial Virus Not Detected (Not Detect); SARS- CoV-2 Not Detected (Not Detecte)
[2023-08-02 19:10] VITALS: BP 106/85; PULSE 81; RESP 16; TEMP 36.4; O2SAT 95
[2023-08-02 19:36] VITALS: BP 111/75; PULSE 88; RESP 18; TEMP 36.3; O2SAT 99
--- NOTE | 2023-08-02 19:55 | ED.GENADULT ---
HPI - General Adult General Chief complaint: Upper Respiratory Symptoms Stated complaint: body aches, head pounding Time Seen by Provider: 08/02/23 19:44 Source: patient Mode of arrival: Wheelchair History of Present Illness HPI narrative: Patient is here for evaluation of 3 days of body aches, head pounding, congestion, cough and generally not feeling very well. No vomiting. No recent travel. Having some shortness of breath with the cough. No chest pain Related Data Previous Rx's Medication Instructions Recorded cyclobenzaprine 10 mg tablet 10 mg PO TID PRN muscle spasm #60 10/05/22 tabs albuterol sulfate 90 mcg/actuation 2 puff inhalation Q6H PRN 03/23/23 aerosol inhaler (ProAir HFA) shortness of breath or wheezing #8.5 grams fluticasone propionate 50 1 spray intranasal DAILY #16 grams 06/20/23 mcg/actuation nasal spray,suspension (Flonase Allergy Relief) Allergies Allergy/AdvReac Type Severity Reaction Status Date / Time procaine [From NOVOCAIN] Allergy Mild RASH Verified 06/20/23 14:36 Review of Systems Review of Systems Narrative: See HPI Patient History Medical History Hx of hepatitis C Hepatitis C antibody positive in blood Wheezing HUITRON (dyspnea on exertion) Chills Malaise and fatigue Exposure to cat feces Nonscarring hair loss, unspecified Low density lipoprotein (LDL) below 100mg/dL Small bowel obstruction Chronic pain of lower extremity, bilateral Back stiffness Chronic right-sided thoracic back pain Vitamin B12 deficiency Morning joint stiffness of multiple sites UTI (urinary tract infection) Bacterial vaginosis Acute pain of left knee Vagina, candidiasis Chronic pain of right upper extremity Chronic pain of right wrist Alternating constipation and diarrhea Rash and nonspecific skin eruption Alcoholic cirrhosis of liver Transaminitis Abdominal pain Upper extremity somatic dysfunction Foot abscess, left Sinusitis Right anterior knee pain Carbon monoxide exposure Family history of cerebral aneurysm Segmental and somatic dysfunction of abdomen and other regions Pelvic somatic dysfunction Somatic dysfunction of sacral spine Segmental and somatic dysfunction of lumbar region Segmental and somatic dysfunction of thoracic region Cervical somatic dysfunction Cranial somatic dysfunction Vision disorder Skin problem Allergies Depression Headache Shoulder pain Foot pain Chicken pox Panic anxiety syndrome Tension headache, chronic Hepatitis C Hepatitis A Anxiety Circulation problem Chronic neck and back pain Tobacco abuse disorder Surgical History H/O tubal ligation Hx of tonsillectomy No significant past surgical history Family History Father No problems noted. Mother Pneumonia Social History household members: friend(s) Smoking Status: Current every day smoker Smoking Status: Current every day smoker tobacco type: cigarettes alcohol intake frequency: holidays/special occasions only Substance Use Type: marijuana and methamphetamine Exam Initial Vital Signs Initial Vital Signs: Vital Signs Temperature 98.1 F 08/02/23 14:40 Pulse Rate 97 H 08/02/23 14:40 Respiratory Rate 16 08/02/23 14:40 Blood Pressure 127/87 08/02/23 14:40 Pulse Oximetry 95 08/02/23 14:40 Oxygen Delivery Method Room Air 08/02/23 14:40 HENMT Head: normal to inspection and normocephalic Resp Effort & Inspection: normal respiratory effort, not labored and no retractions Auscultation: clear to auscultation bilaterally Cardio Rate: regular rate Rhythm: regular rhythm Course Orders Ordered: Discontinued Medications Acetaminophen (Acetaminophen 325 Mg Tablet) 975 mg PO NOW ONE Stop: 08/02/23 14:44 Last Admin: 08/02/23 14:49 Dose: 975 mg Documented By: LENI Vital Signs Vital signs: Vital Signs - 8 hr 08/02/23 19:10 08/02/23 19:36 Temperature 97.6 F 97.4 F L Pulse Rate 81 88 Respiratory Rate 16 18 Blood Pressure 106/85 111/75 Pulse Oximetry 95 99 Oxygen Delivery Method Room Air Room Air Medical Decision Making Lab Data Lab results reviewed: Yes I reviewed the patient's lab results. Labs: Lab Results 08/02/23 Range/Units 14:45 Chlamy pneumoniae PCR Not detected (Not Detect) Adenovirus (PCR) Not detected (Not Detect) B.parapertussis DNA PCR Not detected (Not Detecte) Coronavirus OC43 (PCR) Not detected (Not Detect) Coronavirus HKU1 (PCR) Not detected (Not Detect) Coronavirus 229E (PCR) Not detected (Not Detect) SARS-CoV-2 (PCR) Not detected (Not Detecte) Coronavirus NL63 (PCR) Not detected (Not Detect) Human Metapneumovir PCR Detected H (Not Detect) Influenza Type A (PCR) Not detected (Not Detect) Influenza Type B (PCR) Not detected (Not Detect) M. pneumoniae (PCR) Not detected (Not Detect) Parainfluenza 1 (PCR) Not detected (Not Detect) Parainfluenza 2 (PCR) Not detected (Not Detect) Parainfluenza 3 (PCR) Not detected (Not Detect) Parainfluenza 4 (PCR) Not detected (Not Detect) RSV (PCR) Not detected (Not Detect) Entero/Rhino (PCR) Not detected (Not Detect) MDM Narrative Medical decision making narrative: Afebrile, not hypoxic, not tachypneic, clear lungs. Is positive for human metapneumovirus which does explain her presenting symptoms today. There was no indication for antibiotics. I did discuss this with her. Discussed use of Tylenol and ibuprofen. Recommended increasing her fluid intake and return to the emergency department if symptoms worsen. Discharge Plan Departure Patient Disposition: Home Clinical Impression: Acute bronchiolitis due to human metapneumovirus Instructions: Human Metapneumovirus Infection Activity Restrictions/Additional Instructions: Your respiratory panel today was positive for virus called human metapneumovirus. I do recommend that you increase your fluid intake. You can take Tylenol/ibuprofen for any fevers or body aches. Return to the emergency department for new symptoms Prescriptions: No Action cyclobenzaprine 10 mg tablet 10 mg PO TID PRN (Reason: muscle spasm) Qty: 60 0RF fluticasone propionate [Flonase Allergy Relief] 50 mcg/actuation spray,suspension 1 spray intranasal DAILY Qty: 16 0RF Rx Instructions: administer into each nostril albuterol sulfate [ProAir HFA] 90 mcg/actuation HFA aerosol inhaler 2 puff inhalation Q6H PRN (Reason: shortness of breath or wheezing) Qty: 8.5 5RF Referrals: Isidro Mendez DO [Primary Care Provider] - Stand Alone Forms: Patient Portal/API
== END 2023-08-02 20:05 | disposition home or self-care (01) ==
PROVIDERS: Emergency Medicine; Emergency Provider Emergency Medicine; Family Provider Family Medicine; PCP Family Medicine
DX: J21.1 Acute bronchiolitis due to human metapneumovirus (principal); Z20.822 Contact with and (suspected) exposure to COVID-19
CPT/HCPCS: 87633; 99282; 99283

== ENCOUNTER 2023-08-09 06:46 | Emergency (ER) | payer OTHER, MEDICAID, SELFPAY ==
[2021-11-16 16:27] VITALS: BMI 21.3
[2023-08-09 06:56] VITALS: BP 168/94; PULSE 99; RESP 20; TEMP 36.8; O2SAT 96; BMI 21.3
--- NOTE | 2023-08-09 07:29 | ED.BACK ---
HPI - Back Pain/Injury General Chief Complaint: Back Pain/Injury Stated Complaint: bloody noses, spasms Time Seen by Provider: 08/09/23 06:48 Source: patient History of Present Illness HPI Narrative: Patient 63-year-old female history of chronic smoking presenting today with ongoing cough epistaxis and back spasms. She was seen evaluated here on July 22 diagnosed with human metapneumovirus discharge home with supportive care. She says that for the last 3 days she has had bloody noses that seemed to stop fairly quickly. She reports that her whole back is spasming. She has ongoing back spasm she is supposed to take Flexeril apparently isn't helping very much. She has albuterol inhaler but can not find it. She says the cough is pretty bad. She is currently afebrile. She states that she can not sleep and is currently sleepy now Related Data Previous Rx's Medication Instructions Recorded cyclobenzaprine 10 mg tablet 10 mg PO TID PRN muscle spasm #60 10/05/22 tabs albuterol sulfate 90 mcg/actuation 2 puff inhalation Q6H PRN 03/23/23 aerosol inhaler (ProAir HFA) shortness of breath or wheezing #8.5 grams fluticasone propionate 50 1 spray intranasal DAILY #16 grams 06/20/23 mcg/actuation nasal spray,suspension (Flonase Allergy Relief) amoxicillin 500 mg capsule 1,000 mg (2 x 500 mg) PO TID 5 08/09/23 days #30 caps azithromycin 250 mg tablet See Rx Instructions PO .COMPLEX #6 08/09/23 tabs Allergies Allergy/AdvReac Type Severity Reaction Status Date / Time procaine [From NOVOCAIN] Allergy Mild RASH Verified 06/20/23 14:36 Patient History Medical History Hx of hepatitis C Hepatitis C antibody positive in blood Wheezing HUITRON (dyspnea on exertion) Chills Malaise and fatigue Exposure to cat feces Nonscarring hair loss, unspecified Low density lipoprotein (LDL) below 100mg/dL Small bowel obstruction Chronic pain of lower extremity, bilateral Back stiffness Chronic right-sided thoracic back pain Vitamin B12 deficiency Morning joint stiffness of multiple sites UTI (urinary tract infection) Bacterial vaginosis Acute pain of left knee Vagina, candidiasis Chronic pain of right upper extremity Chronic pain of right wrist Alternating constipation and diarrhea Rash and nonspecific skin eruption Alcoholic cirrhosis of liver Transaminitis Abdominal pain Upper extremity somatic dysfunction Foot abscess, left Sinusitis Right anterior knee pain Carbon monoxide exposure Family history of cerebral aneurysm Segmental and somatic dysfunction of abdomen and other regions Pelvic somatic dysfunction Somatic dysfunction of sacral spine Segmental and somatic dysfunction of lumbar region Segmental and somatic dysfunction of thoracic region Cervical somatic dysfunction Cranial somatic dysfunction Vision disorder Skin problem Allergies Depression Headache Shoulder pain Foot pain Chicken pox Panic anxiety syndrome Tension headache, chronic Hepatitis C Hepatitis A Anxiety Circulation problem Chronic neck and back pain Tobacco abuse disorder Surgical History H/O tubal ligation Hx of tonsillectomy No significant past surgical history Family History Father No problems noted. Mother Pneumonia Social History household members: friend(s) Smoking Status: Current every day smoker Smoking Status: Current every day smoker tobacco type: cigarettes alcohol intake frequency: holidays/special occasions only Substance Use Type: marijuana and methamphetamine Exam Initial Vital Signs Initial Vital Signs: Vital Signs Temperature 98.3 F 08/09/23 06:56 Pulse Rate 99 H 08/09/23 06:56 Respiratory Rate 20 08/09/23 06:56 Blood Pressure 168/94 H 08/09/23 06:56 Pulse Oximetry 96 08/09/23 06:56 Oxygen Delivery Method Room Air 08/09/23 06:56 GENERAL: Sleeping but arousable 63-year-old female HEENT: Head atraumatic,EOMI, pupils reactive, face symmetric, [moist] mucous membranes CARDIOVASCULAR: Regular rate and rhythm without murmurs, rubs or gallops. RESPIRATORY: Mild decreased breath sounds but no conversational dyspnea no wheezing ABDOMEN: Soft, nontender. Normoactive bowel sounds all 4 quadrants. No guarding or rebound. EXTREMITIES: Normal range of motion, no clubbing or edema. Neurovascularly intact NEUROLOGICAL: Alert and oriented x4.Normal gait and speech. Cranial nerves II through XII grossly intact. SKIN: Warm, dry, no laceration, no petechiae, no rashes or lesions. Scores CURB-65 Confusion: No BUN >19mg/dL (>7mmol/L): No Respiratory rate greater or equal to 30: No SBP <90mmHg or DBP less or equal to 60mmHg: No Age 65 or Older: No CURB-65 Total: 0 Score 0-1 Outpatient care, Score 2 Inpt vs. Obs, Score 3 or over Inpt admit with ICU for score of 4-5 Course Orders Ordered: ED Orders 08/09/23 07:29 Chest [XR chest 2V] Stat 08/09/23 08:41 CBC Auto Diff [Complete Blood Count AUTO DIFF] Stat CMP [Comprehensive Metabolic Panel] Stat Lactate (Lactic Acid) Stat Procalcitonin Stat 08/09/23 09:07 Blood Culture Stat Discontinued Medications Albuterol (Albuterol Hfa Prepack) 1 box MISC DIRECTED ONE Stop: 08/09/23 07:30 Last Admin: 08/09/23 07:37 Dose: 1 box Documented By: ALMA Sodium Chloride (Normal Saline 0.9%) 1,000 mls @ 1,000 mls/hr IV BOLUS ONE Stop: 08/09/23 09:32 Last Infusion: 08/09/23 09:23 Dose: Infused Documented By: Admin: 08/09/23 08:49 Dose: 1,000 mls/hr Documented By: ALMA Ketorolac Tromethamine (Ketorolac 30 Mg/Ml Vial) 30 mg IM NOW ONE Stop: 08/09/23 07:30 Last Admin: 08/09/23 07:37 Dose: 30 mg Documented By: ALMA Vital Signs Vital signs: Vital Signs - 8 hr 08/09/23 06:56 08/09/23 08:47 08/09/23 09:00 Temperature 98.3 F Pulse Rate 99 H 81 80 Respiratory Rate 20 Blood Pressure 168/94 H Pulse Oximetry 96 91 94 Oxygen Delivery Method Room Air 08/09/23 10:06 Temperature 98.3 F Pulse Rate 84 Respiratory Rate 19 Blood Pressure 157/85 H Pulse Oximetry 95 Oxygen Delivery Method Room Air MDM - Back Pain/Injury Lab Data 08/09/23 08:41 08/09/23 08:41 Labs: Lab Results 08/09/23 Range/Units 08:41 WBC 10.0 (4.5-11.0) X10^3/uL RBC 3.99 L (4.0-5.2) X10^6/uL Hgb 12.8 (12.0-16.0) g/dL Hct 36.7 (36-46) % MCV 91.8 (80-100) fL MCH 32.0 (26-34) PG MCHC 34.8 (30-36) % RDW 13.5 (11.6-14.8) % Plt Count 143 L (150-400) X10^3/uL Neut % (Auto) 75.1 H (50-75) % Lymph % (Auto) 14.9 L (25-40) % Schley % (Auto) 9.1 (3-14) % Eos % (Auto) 0.5 L (2-4) % Baso % (Auto) 0.4 (0-2) % Neut # (Auto) 7500 H (9343-8870) /uL Lymph # (Auto) 1500 (4101-7791) /uL Schley # (Auto) 900 (0-900) /uL Eos # (Auto) 0 (0-450) /uL Baso # (Auto) 0 (0-100) /uL Sodium 134 L (137-145) mmol/L Potassium 3.8 (3.4-5.1) mmol/L Chloride 105 (98-107) mmol/L Carbon Dioxide 22 (22-32) mmol/L BUN 10 (7-17) mg/dL Creatinine 0.50 L (0.52-1.04) mg/dL Estimated GFR > 60 (>60) mL/min BUN/Creatinine Ratio 20.0 (6-22) Glucose 105 (80-110) mg/dL Lactate 0.8 (0.7-2.1) mmol/L Calcium 8.3 L (8.4-10.2) mg/dL Total Bilirubin 1.3 (0.2-1.3) mg/dL AST 66 H (14-36) IU/L ALT 76 H (<35) IU/L Alkaline Phosphatase 108 (38-126) U/L Total Protein 7.0 (6.3-8.2) g/dL Albumin 3.6 (3.5-5.0) g/dL Globulin 3.4 (1.7-4.1) g/dL Albumin/Globulin Ratio 1.1 (1.0-2.8) Procalcitonin 0.272 (<0.5) ng/mL Imaging Data Chest x-ray: Radiologist's Impression: PROCEDURE: XR CHEST 2V INDICATIONS: cough TECHNIQUE: 2 views of the chest were acquired. COMPARISON: [facility], CR, XR CHEST 2V, 05/17/2023, 13:42. [facility], CR, XR CHEST 1V, 09/16/2020, 23:25. FINDINGS: Surgical changes and devices: None. Lungs and pleura: Patchy opacities are seen at the left lower lobe. No pleural effusion or pneumothorax. Mediastinum: Mediastinal contours are normal. Heart size is normal. Bones and chest wall: No suspicious bony abnormalities. Soft tissues appear unremarkable. IMPRESSION: Left lower lobe opacities are suspicious for pneumonia or aspiration. Approved by: Gary Ladd M.D. on 08/09/2023 at 8:26 MDM Narrative Medical decision making narrative: 63-year-old female presents today with bloody nose back spasm ongoing cough. Diagnosed with human metapneumovirus about a week ago but not feeling any better. Chest x-ray reviewed today she does have pneumonia. Patient is still not feeling great but does feel little bit better after Toradol. Blood work was done Blood work does not show any evidence of leukocytosis, no evidence of NUSRAT she has got a creatinine of 0.5, lactate, 0.8 and a bilirubin of 1.3. Mild elevation of liver enzymes but has actually improved from previously. Procalcitonin slightly elevated 0.272. Patient was given albuterol inhaler as well which has also helped some At this time will treat patient as an outpatient for pneumonia. Vitals are stable curb 65 =0 Discharge Plan Departure Patient Disposition: Home Clinical Impression: Pneumonia Instructions: DI for Pneumonia -- Adult Activity Restrictions/Additional Instructions: *You have been diagnosed with pneumonia *What to do: At this time is going to take some time to feel better but hopefully with antibiotics you start feeling better in the next 2-3 days. Continue to rest and hydrate. Continue to avoid smoking. I do recommend keeping your nose moist either with saline or Q-tip and antibiotic ointment. You may also try a humidifier at home *Continue to take medications as directed Amoxicillin 1000 mg 3 times a day for 5 days Azithromycin take as directed for 5 days Albuterol inhaler 1-2 puffs with spacer every 4 hours if needed for coughing spasm or shortness of breath Tylenol Motrin as needed *Follow up with your primary care provider in 2-3 days or call [phone] *Return to ER if you should have increasing shortness of breath or any new, worsening or concerning symptoms Prescriptions: New amoxicillin 500 mg capsule 1,000 mg PO TID 5 Days Qty: 30 0RF azithromycin 250 mg tablet See Rx Instructions PO .COMPLEX Qty: 6 0RF Rx Instructions: For 250 mg dose pack: take 500 mg today (day 1), then 250 mg for 4 days (days 2-5) No Action cyclobenzaprine 10 mg tablet 10 mg PO TID PRN (Reason: muscle spasm) Qty: 60 0RF fluticasone propionate [Flonase Allergy Relief] 50 mcg/actuation spray,suspension 1 spray intranasal DAILY Qty: 16 0RF Rx Instructions: administer into each nostril albuterol sulfate [ProAir HFA] 90 mcg/actuation HFA aerosol inhaler 2 puff inhalation Q6H PRN (Reason: shortness of breath or wheezing) Qty: 8.5 5RF Referrals: Isidro Mendez DO [Primary Care Provider] - Stand Alone Forms: Patient Portal/API
[2023-08-09] MEDS: ALBUTEROL HFA PREPACK 1 BOX MISC (07:37)
[2023-08-09] MEDS: KETOROLAC 30 MG/ML VIAL IM (07:37)
[2023-08-09 08:47] VITALS: PULSE 81; O2SAT 91
[2023-08-09] MEDS: SODIUM CHLORIDE 0.9% 1,000 ML 1000 ML IV (08:49)
[2023-08-09 09:00] VITALS: PULSE 80; O2SAT 94
[2023-08-09 09:04] LABS: Alanine Aminotransferase 76 IU/L (<35); Albumin 3.6 g/dL (3.5-5.0); Albumin Globulin Ratio 1.1 (1.0-2.8); Alkaline Phosphatase 108 U/L (38-126); Aspartate Aminotransferase 66 IU/L (14-36); Bilirubin Total 1.3 mg/dL (0.2-1.3); Blood Urea Nitrogen 10 mg/dL (7-17); Calcium 8.3 mg/dL (8.4-10.2); Carbon Dioxide 22 mmol/L (22-32); Chloride 105 mmol/L (98-107); Estimated Glomerular Filt Rate > 60 mL/min (>60); Globulin 3.4 g/dL (1.7-4.1); Glucose 105 mg/dL (80-110); HEMOLYSIS 24 (0-50); Lactate (Lactic Acid) 0.8 mmol/L (0.7-2.1); Potassium 3.8 mmol/L (3.4-5.1); Sodium 134 mmol/L (137-145)
--- NOTE | 2023-08-09 09:04 | PC.NURSE ---
Pt endorses back spasms for several months, bloody nose (pt educated on keeping nose moisturized), and strong cough. Pt states she was seen here recently for viral illness. Pt states she has stopped smoking bc she has had difficulty breathing.
[2023-08-09 09:06] LABS: Add Manual Diff / Slide Review NO; Basophils Absolute Auto 0 /uL (0-100); Basophils Percent Auto 0.4 % (0-2); Eosinophils Absolute Auto 0 /uL (0-450); Eosinophils Percent Auto 0.5 % (2-4); Hematocrit 36.7 % (36-46); Hemoglobin 12.8 g/dL (12.0-16.0); Lymphocytes Absolute Auto 1500 /uL (1100-4500); Lymphocytes Percent Auto 14.9 % (25-40); Mean Corpuscular HGB Conc 34.8 % (30-36); Mean Corpuscular Volume 91.8 fL (80-100); Monocytes Absolute Auto 900 /uL (0-900); Monocytes Percent Auto 9.1 % (3-14); Neutrophils Absolute Auto 7500 /uL (1500-7000); Neutrophils Percent Auto 75.1 % (50-75); Platelet Count 143 X10^3/uL (150-400); Red Blood Cell Count 3.99 X10^6/uL (4.0-5.2); Red Cell Distribution Width 13.5 % (11.6-14.8)
--- NOTE | 2023-08-09 09:08 | PC.NURSE ---
Pt reports pain improvement and less spasms w/ ketorolac shot.
[2023-08-09 09:20] LABS: Procalcitonin 0.272 ng/mL (<0.5)
[2023-08-09 10:06] VITALS: BP 157/85; PULSE 84; RESP 19; TEMP 36.8; O2SAT 95
== END 2023-08-09 10:11 | disposition home or self-care (01) ==
PROVIDERS: Emergency Provider Emergency Medicine; Family Provider Family Medicine; PCP Family Medicine
DX: J18.9 Pneumonia, unspecified organism (principal)
CPT/HCPCS: 36415; 71046; 80053; 83605; 84145; 85025; 87040; 96360; 96372; 99284; J1885

== ENCOUNTER → 2023-08-31 13:30 | Outpatient (CLI) | payer OTHER, MEDICAID, SELFPAY ==
[2021-11-16 16:27] VITALS: BMI 21.3
--- NOTE | 2023-08-31 13:30 | DI.MRI.S_ITS ---
PROCEDURE: MR SHOULDER RT WO CON INDICATIONS: Chronic pain, significant impaired ROM, refractory to PT TECHNIQUE: Noncontrast oblique coronal T2 fast spin echo with fat saturation, oblique sagittal T1 spin echo and T2 fast spin echo with fat saturation, axial T1 spin echo and T2 fast spin echo with fat saturation through the shoulder. COMPARISON: None. FINDINGS: Image quality: Moderate motion artifact Rotator cuff: Bulk: Moderate supraspinatus atrophy. Mild atrophy elsewhere Teres minor: Intact Supraspinatus: Full-thickness partial width tear of the supraspinatus. High-grade partial tear is seen at the other fibers. Tear extends into the muscle tendon junction. Infraspinatus: High-grade partial-thickness articular and interstitial tears Subscapularis: Moderate tendinopathy and multifocal partial-thickness articular and interstitial tears Bones and bursae: GH joint: Moderate effusion. Moderate degenerative changes. Intra-articular debris is present AC joint: Moderate degenerative changes Humeral head: Mild edema head neck Scapula and acromion: Unremarkable Bursa: Joint effusion extends to the bursa Capsule: Labrum: Circumferential attenuation, likely chronic degenerative changes. Superior labral tear is present. Long head biceps tendon: Superior labral tear extends to the biceps tendon. Bicipital groove moderate degree of fluid. IGHL: Fluid in the axillary pouch Rotator interval: Effaced with edema Soft tissues: No axillary adenopathy. Lungs are not well seen. IMPRESSION: High-grade infraspinatus, supraspinatus, and subscapularis tears. Full-thickness, nearly full width component is seen in the supraspinatus. Moderate supraspinatus muscle belly atrophy. Mild muscle atrophy seen elsewhere. Moderate glenohumeral joint effusion extends to the bursa. Moderate glenohumeral and acromioclavicular degenerative changes. Mild proximal humeral edema, possibly a nondisplaced fracture or contusion. Circumferential attenuation of the labrum and superior labral tear, extending to the biceps tendon. Edema in the rotator interval, likely capsulitis. Dictated by: Chad Sosa M.D. on 08/31/2023 at 15:14 Approved by: Chad Sosa M.D. on 08/31/2023 at 15:20
== END ==
LOC: MRI 13:30
PROVIDERS: Family Provider Family Medicine; PCP Family Medicine; Referring Provider Family Medicine; Visit Provider Family Medicine
DX: M25.411 Effusion, right shoulder (principal); S46.011A Strain of muscle(s) and tendon(s) of the rotator cuff of right shoulder, initial encounter; S43.491A Other sprain of right shoulder joint, initial encounter; M79.601 Pain in right arm; M25.519 Pain in unspecified shoulder; G89.29 Other chronic pain
CPT/HCPCS: 73221

== ENCOUNTER 2023-09-03 13:45 | Outpatient (RCR) | payer OTHER, MEDICAID, SELFPAY ==
[2021-11-16 16:27] VITALS: BMI 21.3
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
--- NOTE | 2023-06-11 17:53 | PT.OPPOC ---
Physical, Occupational & Speech Therapy At [facility] Current Diagnoses Chronic tension-type headache, not intractable (06/11/23) Other chronic pain (06/11/23) Pain in right shoulder (06/11/23) Stiffness of right shoulder, not elsewhere classified (06/11/23) Stiffness of other specified joint, not elsewhere classified (06/11/23) Cervicalgia (06/11/23) Pain in thoracic spine (06/11/23) Pain in right arm (06/11/23) Visit Care Team Role Provider Type Isidro Mendez DO Attending Provider Physician Family Provider Primary Care Provider Referring Provider Specialty: [facility] Address: [address] [place] [address], [facility] Email: Plan Of Care PT-OP-T Assessment and Plan Start: 06/11/23 15:23 Freq: Status: Active Protocol: Document 06/11/23 12:10 DCW (Rec: 06/11/23 17:52 DCW [id number]) Physical Therapy Assessment Rehab Potential Rehabilitation Potential Fair Evaluation Complexity Number of Personal Factors/Comorbidities 3 or More Number of Body Systems Impaired 4 or More Clinical Presentation at Evaluation Unstable Impairments Impairments Activity Tolerance,Functional Activities,Functional Mobility ,Pain,Posture,ROM,Soft Tissue Mobility,Strength,Tone Goals Three Impairment Pt exhibits decreased R shoulder flexion (73?) and abduction (64?) Jail Goal (LTG) Pt to improve ability to lift her right arm overhead by demonstrating right shoulder flexion and abduction >120? 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 Pt's right shoulder greatly impacted by prior injury, limited in strength and ROM, with pt reporting near constant pain with all activities. Pt notes she has been diagnosed previously with a humeral fracture, notes it healed incorrectly, testing today also suggestive of involvement of subscapularis. High muscle tone in cervical paraspinals restricting cervical mobility and appear to be influencing pt's frequent migraines. Pt should benefit from skilled therapeutic intervention focusing on improving functional mobility, shoulder/ cervical/lumbar ROM, strengthening, and her ability to participate in work functions. Performance in physical therapy may have limiting factors including chronicity of condition and medical complexity. Pt would likely greatly benefit from further advanced imaging in her right shoulder if she does not progress as expected. Physical Therapy Plan Frequency and Duration Frequency of Treatment 2x/Week Plan of Care Start Date 06/11/23 Plan of Care End Date 09/09/23 Therapeutic Interventions Therapeutic Interventions Gait Training,Home Exercise Program,Joint Mobilizations, Manual Therapy,Neuromuscular Re-education,Patient/Caregiver Education,Self-Care/Home Management,Soft Tissue Mobilization,Taping, Therapeutic Activities, Therapeutic Exercises, Vestibular Rehabilitation Modalities Cold Pack/Ice Massage,Electric Stimulation,Hot Packs, Ultrasound Next Visit Focus/Plan Next Note Type Treatment Note Next Visit Plan Shoulder strengthening, STM, ROM, pain modalities. Plan of Care Dates Plan of Care Start Date 06/11/23 Plan of Care End Date 09/09/23 Electronically Signed by: Evgeny Matt, PT 06/11/23 3775 If you are in agreement with this Plan of Care, please return a signed and dated copy. I have reviewed this Plan of Care and certify that the skilled therapy services above are required to meet the patient?s needs. Physician Signature Date Printed Name and Credentials Clinical Instructor Signature Printed Name and Credentials
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
--- NOTE | 2023-07-13 09:24 | PT-OP ANOTE ---
9:20 am, phoned patient regarding light blue theraband being issued. Patient advised no to perform new exercises with note to use light blue band. Patient reports she has peach band. Patient advised she may try peach if there is no pain, but to avoid using the light green band for the newly issued exercises. Patient advised she should have no pain when performing the exercises issued yesterday.
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
--- NOTE | 2023-08-30 14:05 | PT-OP ANOTE ---
Patient reports she was vacuuming her pool yesterday and reached forward for bar and heard a loud pop, which did not feel good, gestures to sternum comments she feels there is going to be a bruise. Pt reports she just got off work, did have sharp pains in this area during work. PT, Sim Matt into session to consult with patient. Patient comments she was thinking she should ask MD to add this area to the MRI she is already scheduled for tomorrow. Decided to cancel today's appointment and follow up after MRI due to possibility of new injury.
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
--- NOTE | 2023-09-10 13:51 | PT-OP ANOTE ---
Pt arrived to appointment as scheduled, but after brief discussion, therapist and patient agree that PT should be put on hold until pt is seen by ortho next week due to results of recent MRI.
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
== END 2023-12-11 08:20 | disposition home or self-care (01) ==
LOC: PHYS 13:45
PROVIDERS: Family Provider Family Medicine; PCP Family Medicine; Referring Provider Family Medicine; Visit Provider Family Medicine
DX: M25.69 Stiffness of other specified joint, not elsewhere classified (principal); M54.6 Pain in thoracic spine; M79.601 Pain in right arm; G89.29 Other chronic pain; M54.2 Cervicalgia; G44.229 Chronic tension-type headache, not intractable; M25.611 Stiffness of right shoulder, not elsewhere classified; M25.511 Pain in right shoulder
CPT/HCPCS: 97110; 97112; 97140; 97163

== ENCOUNTER 2023-11-30 06:46 | Emergency (ER) | payer OTHER, MEDICAID, SELFPAY ==
[2023-10-24 12:56] VITALS: BMI 21.3
[2023-11-30 06:49] VITALS: PULSE 90; O2SAT 99
[2023-11-30 06:51] VITALS: BP 190/101; PULSE 85; O2SAT 97
[2023-11-30 06:56] VITALS: BP 190/101; PULSE 84; RESP 18; TEMP 36.8; O2SAT 98; BMI 21.6
[2023-11-30 07:00] VITALS: BP 185/95; PULSE 81; O2SAT 96
--- NOTE | 2023-11-30 07:00 | ED_ITS ---
HPI - Extremity Problem General Chief complaint: Extremity Problem,Nontraumatic Stated complaint: Right shoulder pain , Meagher 2 pops Time Seen by Provider: 11/30/23 06:49 Source: patient Mode of arrival: Ambulatory History of Present Illness HPI Narrative: 63-year-old right-handed female was lifting an object last night 9:00 p.m., anterior right shoulder pain since that time, worse with movements. She had popping sensation after pain, did not have to relocate, no history of shoulder dislocation problems or shoulder surgery. She has noticed more pain in her posterior scapular area since that time. No other injuries. She has not tried any medications for the pain. Related Data Home Medications Medication Instructions Recorded Confirmed amoxicillin 500 mg capsule mg PO 08/15/23 11/01/23 Previous Rx's Medication Instructions Recorded albuterol sulfate 90 mcg/actuation 2 puff inhalation Q6H PRN 03/23/23 aerosol inhaler (ProAir HFA) shortness of breath or wheezing #8.5 grams fluticasone propionate 50 1 spray intranasal DAILY #16 grams 06/20/23 mcg/actuation nasal spray,suspension (Flonase Allergy Relief) azithromycin 250 mg tablet See Rx Instructions PO .COMPLEX #6 08/09/23 tabs cyclobenzaprine 10 mg tablet 10 mg PO TID PRN muscle spasm #60 08/15/23 tabs dextromethorphan HBr 5 mg/5 mL 10 mg (10 mL) PO Q8H PRN cough 08/15/23 oral syrup (Day-Time Cough) #355 mL methocarbamol 500 mg tablet 500 mg PO TID 7 days #21 tabs 11/30/23 Allergies Allergy/AdvReac Type Severity Reaction Status Date / Time procaine [From NOVOCAIN] Allergy Mild RASH Verified 11/01/23 11:51 Review of Systems Review of Systems Narrative: see HPI Patient History Medical History (Updated 11/30/23 @ 07:23 by Valerio Paniagua MD) Low back pain Right elbow pain Hx of hepatitis C Hepatitis C antibody positive in blood Wheezing HUITRON (dyspnea on exertion) Chills Malaise and fatigue Exposure to cat feces Nonscarring hair loss, unspecified Low density lipoprotein (LDL) below 100mg/dL Small bowel obstruction Chronic pain of lower extremity, bilateral Back stiffness Chronic right-sided thoracic back pain Vitamin B12 deficiency Morning joint stiffness of multiple sites UTI (urinary tract infection) Bacterial vaginosis Acute pain of left knee Vagina, candidiasis Chronic pain of right upper extremity Chronic pain of right wrist Alternating constipation and diarrhea Rash and nonspecific skin eruption Alcoholic cirrhosis of liver Transaminitis Abdominal pain Upper extremity somatic dysfunction Foot abscess, left Sinusitis Right anterior knee pain Carbon monoxide exposure Family history of cerebral aneurysm Segmental and somatic dysfunction of abdomen and other regions Pelvic somatic dysfunction Somatic dysfunction of sacral spine Segmental and somatic dysfunction of lumbar region Segmental and somatic dysfunction of thoracic region Cervical somatic dysfunction Cranial somatic dysfunction Vision disorder Skin problem Allergies Depression Headache Shoulder pain Foot pain Chicken pox Panic anxiety syndrome Tension headache, chronic Hepatitis C Hepatitis A Anxiety Circulation problem Chronic neck and back pain Tobacco abuse disorder Surgical History H/O tubal ligation Hx of tonsillectomy No significant past surgical history Family History Father No problems noted. Mother Pneumonia Social History household members: friend(s) Smoking Status: Current every day smoker Smoking Status: Current every day smoker tobacco type: cigarettes alcohol intake frequency: holidays/special occasions only Substance Use Type: marijuana and methamphetamine Exam Narrative Exam Narrative: GENERAL: Well-developed patient, in mild distress. HEAD: Atraumatic. Normocephalic. EYES: Pupils equal round and reactive. Extraocular motions intact. No scleral icterus. No injection or drainage. ENT: Nose without bleeding, purulent drainage. Throat without erythema, tonsillar hypertrophy or exudate. Airway patent. NECK: Trachea midline. Non tender CARDIOVASCULAR: Regular rate and rhythm without murmurs, gallops, or rubs. RESPIRATORY: Clear to auscultation. Breath sounds equal bilaterally. No wheezes, rales, or rhonchi. GASTROINTESTINAL: Abdomen soft, non-tender, nondistended. EXTREMITIES: Tenderness right anterior shoulder without anterior fullness or obvious gross dislocation or step-off. No tenderness over the AC joint in that area. No tenderness over the superior trapezius but some tenderness along the superior and inferior rhomboid musculature ipsilateral right shoulder blade area. No skin changes or bruising noted. Distal neurovascularly intact. No edema or joint tenderness. BACK: Nontender without deformity or crepitance. No flank tenderness. NEURO: AOx3. Motor functions grossly nonfocal SKIN: No rash or erythema of visible areas Initial Vital Signs Initial Vital Signs: Vital Signs Pulse Rate 90 11/30/23 06:49 Pulse Oximetry 99 11/30/23 06:49 Course Orders Ordered: Discontinued Medications Acetaminophen (Acetaminophen 325 Mg Tablet) 975 mg PO NOW ONE Stop: 11/30/23 07:20 Last Admin: 11/30/23 07:43 Dose: 975 mg Documented By: CTS Vital Signs Vital signs: Vital Signs - 8 hr 11/30/23 06:49 11/30/23 06:51 11/30/23 06:51 Temperature Pulse Rate 90 85 Respiratory Rate Blood Pressure 190/101 H Pulse Oximetry 99 97 Oxygen Delivery Method 11/30/23 06:56 11/30/23 07:00 11/30/23 07:00 Temperature 98.3 F Pulse Rate 84 81 Respiratory Rate 18 Blood Pressure 190/101 H 185/95 H Pulse Oximetry 98 96 Oxygen Delivery Method Room Air MDM - Extremity (Nontraumatic) Imaging Data Extremity x-ray #1: My Impression: Right shoulder x-ray without obvious fracture, no dislocation on scapular Y- view, no obvious separation or drop off at AC joint. Radiologist's Impression: [place] [address] XRay Report Signed Patient: Gloria Mancera MR#: [id number] : 1960 Acct:[id number] Age/Sex: 63 / F Date of Service: 11/30/23 Loc: ED Accession Number: [id number] Procedure: XR shoulder RT min 2V Ordering Provider: Valerio Paniagua MD PROCEDURE: XR SHOULDER RT MIN 2V INDICATIONS: right shoulder pain TECHNIQUE: 3 views of the shoulder were acquired. COMPARISON: [facility], , XR SHOULDER 2+ VIEWS RIGHT, 09/18/2023, 16:12. FINDINGS: Bones: No fractures or dislocations. No suspicious bony lesions. Visualized ribs appear intact. Soft tissues: No suspicious soft tissue calcifications. IMPRESSION: No visualized acute fracture or dislocation. However, if clinical concern and/or pain persist, short interval imaging followup in 7-10 days is recommended, as occult injury cannot be definitively excluded. Dictated by: Latrice Davis M.D. on 11/30/2023 at 8:42 Approved by: Latrice Davis M.D. on 11/30/2023 at 8:44 MDM Narrative Medical decision making narrative: Right shoulder pain lifting an object, anterior tenderness, XRay negative, some rhomboid area muscle spasm, placed in shoulder sling, trial muscle relaxant, recheck early next week, OTC analgesics discussed, return precaustions discussed Discharge Plan Departure Patient Disposition: Home Clinical Impression: Right shoulder strain, Muscle spasm Activity Restrictions/Additional Instructions: Right anterior shoulder pain after lifting object last night, predominantly anterior shoulder discomfort, popping sensation, no known dislocation, also some posterior shoulder blade area discomfort. On examination you seemed to have tenderness in the anterior shoulder, no gross deformity. Some muscle spasm tenderness along the superior rhomboid musculature, that might be secondary spasm for right shoulder strain. X-ray showed no obvious fractures, no dislocation, no subluxation, no separation of the AC joint. You had not been taken any medications, Tylenol dose given. Consider course of relaxant and sling. Take ibuprofen and/or Tylenol as needed. Robaxin/methocarbamol muscle relaxant prescription sent to your pharmacy. Wear sling for support for now for the next few days. Follow up with your regular doctor early next week to recheck exam, hopefully transitioning out of sling so that you do not develop a shoulder is frozen from prolonged immobilization. Return earlier to this/ nearest emergency department for any change worsening symptoms or any concerns prior Prescriptions: New methocarbamol 500 mg tablet 500 mg PO TID 7 Days Qty: 21 0RF No Action fluticasone propionate [Flonase Allergy Relief] 50 mcg/actuation spray,suspension 1 spray intranasal DAILY Qty: 16 0RF Rx Instructions: administer into each nostril albuterol sulfate [ProAir HFA] 90 mcg/actuation HFA aerosol inhaler 2 puff inhalation Q6H PRN (Reason: shortness of breath or wheezing) Qty: 8.5 5RF amoxicillin 500 mg capsule PO cyclobenzaprine 10 mg tablet 10 mg PO TID PRN (Reason: muscle spasm) Qty: 60 0RF Day-Time Cough 5 mg/5 mL syrup 10 mg PO Q8H PRN (Reason: cough) Qty: 355 0RF azithromycin 250 mg tablet See Rx Instructions PO .COMPLEX Qty: 6 0RF Rx Instructions: For 250 mg dose pack: take 500 mg today (day 1), then 250 mg for 4 days (days 2-5) Referrals: Isidro Mendez DO [Primary Care Provider] - Stand Alone Forms: Patient Portal/API
--- NOTE | 2023-11-30 07:10 | DI.RAD.S_ITS ---
PROCEDURE: XR SHOULDER RT MIN 2V INDICATIONS: right shoulder pain TECHNIQUE: 3 views of the shoulder were acquired. COMPARISON: [facility] [place], [place], XR SHOULDER 2+ VIEWS RIGHT, 09/18/2023, 16:12. FINDINGS: Bones: No fractures or dislocations. No suspicious bony lesions. Visualized ribs appear intact. Soft tissues: No suspicious soft tissue calcifications. IMPRESSION: No visualized acute fracture or dislocation. However, if clinical concern and/or pain persist, short interval imaging followup in 7-10 days is recommended, as occult injury cannot be definitively excluded. Dictated by: Latrice Davis M.D. on 11/30/2023 at 8:42 Approved by: Latrice Davis M.D. on 11/30/2023 at 8:44
[2023-11-30] MEDS: ACETAMINOPHEN 325 MG TABLET 975 MG PO (07:43)
== END 2023-11-30 07:45 | disposition home or self-care (01) ==
PROVIDERS: Emergency Provider Emergency Medicine; Family Provider Family Medicine; PCP Family Medicine
DX: S46.911A Strain of unspecified muscle, fascia and tendon at shoulder and upper arm level, right arm, initial encounter (principal); M62.838 Other muscle spasm; X50.9XXA Other and unspecified overexertion or strenuous movements or postures, initial encounter
CPT/HCPCS: 73030; 99283

== ENCOUNTER 2024-05-06 11:01 | Emergency (ER) | payer OTHER, SELFPAY ==
[2023-10-24 12:56] VITALS: BMI 21.3
[2024-05-06] VITALS (16 sets, daily range): BP systolic 143–209; BP diastolic 89–115; PULSE 70–88; RESP 13–20; TEMP 36.3; O2SAT 96–100; BMI 22.6
--- NOTE | 2024-05-06 11:19 | EKG_ITS ---
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
[2024-05-06 11:40] LABS: Add Manual Diff / Slide Review NO; Basophils Absolute Auto 100 /uL (0-100); Basophils Percent Auto 2.1 % (0-2); Eosinophils Absolute Auto 100 /uL (0-450); Eosinophils Percent Auto 2.3 % (2-4); Hemoglobin 12.9 g/dL (12.0-16.0); Lymphocytes Absolute Auto 1300 /uL (1100-4500); Lymphocytes Percent Auto 29.3 % (25-40); Mean Corpuscular HGB Conc 33.8 % (30-36); Mean Corpuscular Hemoglobin 30.2 PG (26-34); Mean Corpuscular Volume 89.5 fL (80-100); Monocytes Absolute Auto 500 /uL (0-900); Monocytes Percent Auto 10.5 % (3-14); Neutrophils Absolute Auto 2500 /uL (1500-7000); Neutrophils Percent Auto 55.8 % (50-75); Platelet Count 80 X10^3/uL (150-400); Red Blood Cell Count 4.25 X10^6/uL (4.0-5.2); Red Cell Distribution Width 15.3 % (11.6-14.8); White Blood Cell Count 4.4 X10^3/uL (4.5-11.0)
--- NOTE | 2024-05-06 11:50 | ED.ABDPAIN ---
HPI - Abdominal Pain General Chief Complaint: Abdominal Pain Stated Complaint: Stomach pain Time Seen by Provider: 05/06/24 11:44 Source: patient Mode of arrival: Ambulatory History of Present Illness HPI narrative: Patient here for recurrent abdominal pain. It is generalized upper and lower and bilateral. Has bloated feeling. Nothing makes it better or worse. No chest pain no back pain. No urinary complaints. Patient took a cab here from work. Patient still has her gallbladder and appendix. Has not try any medications to make it better. Is not on any antacids. Eating or drinking does not make it worse. Patient in no distress at this time. Resting comfortably. Related Data Home Medications Medication Instructions Recorded Confirmed No Known Home Medications 05/06/24 05/06/24 Allergies Allergy/AdvReac Type Severity Reaction Status Date / Time procaine [From NOVOCAIN] Allergy Mild RASH Verified 05/06/24 10:30 Sulfa (Sulfonamide Allergy Vomiting Verified 05/06/24 11:05 Antibiotics) Review of Systems Review of Systems Narrative: GENERAL: Negative chills, fatigue, malaise, fever, sweats. HEENT: Negative sinus pain, ear pain, sore throat RESPIRATORY: Negative dyspnea, cough CARDIOVASCULAR: Negative chest pain, palpitations GASTROINTESTINAL: Negative vomiting, nausea, positive abdominal pain : Negative dysuria, frequency, hematuria MUSCULOSKELETAL: Negative muscle or bony pain SKIN: Negative rash, skin lesions NEUROLOGIC: Negative weakness, numbness ROS Unobtainable: All systems reviewed & are unremarkable except as noted in HPI and below Patient History Medical History (Updated 05/06/24 @ 15:48 by Maurice Arroyo MD) Low back pain Right elbow pain Hx of hepatitis C Hepatitis C antibody positive in blood Wheezing HUITRON (dyspnea on exertion) Chills Malaise and fatigue Exposure to cat feces Nonscarring hair loss, unspecified Low density lipoprotein (LDL) below 100mg/dL Small bowel obstruction Chronic pain of lower extremity, bilateral Back stiffness Chronic right-sided thoracic back pain Vitamin B12 deficiency Morning joint stiffness of multiple sites UTI (urinary tract infection) Bacterial vaginosis Acute pain of left knee Vagina, candidiasis Chronic pain of right upper extremity Chronic pain of right wrist Alternating constipation and diarrhea Rash and nonspecific skin eruption Alcoholic cirrhosis of liver Transaminitis Abdominal pain Upper extremity somatic dysfunction Foot abscess, left Sinusitis Right anterior knee pain Carbon monoxide exposure Family history of cerebral aneurysm Segmental and somatic dysfunction of abdomen and other regions Pelvic somatic dysfunction Somatic dysfunction of sacral spine Segmental and somatic dysfunction of lumbar region Segmental and somatic dysfunction of thoracic region Cervical somatic dysfunction Cranial somatic dysfunction Vision disorder Skin problem Allergies Depression Headache Shoulder pain Foot pain Chicken pox Panic anxiety syndrome Tension headache, chronic Hepatitis C Hepatitis A Anxiety Circulation problem Chronic neck and back pain Tobacco abuse disorder Surgical History H/O tubal ligation Hx of tonsillectomy No significant past surgical history Family History Father No problems noted. Mother Pneumonia Social History household members: friend(s) Smoking Status: Current every day smoker Smoking Status: Current every day smoker tobacco type: cigarettes alcohol intake frequency: holidays/special occasions only Exam Narrative Exam Narrative: GENERAL: in no distress, not toxic not dyspneic HEAD: Normocephalic. EYES: Pupils equal round ENT: Mucous membranes moist. NECK: Trachea midline. CARDIOVASCULAR: Regular rate and rhythm RESPIRATORY: Clear to auscultation. Breath sounds equal bilaterally. No wheezes, rales, or rhonchi. GASTROINTESTINAL: Abdomen soft, non-tender, no peritoneal signs no Nguyen sign no pain out of portion exam no guarding or rebound. Bowel sounds are present. No CVA tenderness. EXTREMITIES: No gross deformities. BACK: No flank tenderness. NEURO: AOx4. Clear speech SKIN: Warm and dry PSYCH: Not anxious, is cooperative Initial Vital Signs Initial Vital Signs: Vital Signs Temperature 97.3 F L 05/06/24 11:05 Pulse Rate 77 05/06/24 11:05 Respiratory Rate 16 05/06/24 11:05 Blood Pressure 143/89 H 05/06/24 11:05 Pulse Oximetry 100 05/06/24 11:05 Oxygen Delivery Method Room Air 05/06/24 11:05 Course Orders Ordered: Discontinued Medications Sodium Chloride (Normal Saline 0.9%) 1,000 mls @ 1,000 mls/hr IV BOLUS ONE Stop: 05/06/24 12:49 Last Infusion: 05/06/24 13:15 Dose: Infused Documented By: Admin: 05/06/24 12:07 Dose: 1,000 mls/hr Documented By: CAROLINA Ondansetron HCl (Ondansetron 4 Mg/2 Ml Inj) 4 mg IV NOW PRN PRN Reason: Nausea And Vomiting Ondansetron HCl (Ondansetron 4 Mg Odt) 4 mg PO NOW PRN PRN Reason: Nausea And Vomiting Pantoprazole Sodium (Pantoprazole 40 Mg Vial) 40 mg IV NOW ONE Stop: 05/06/24 11:51 Last Admin: 05/06/24 12:08 Dose: 40 mg Documented By: CAROLINA Vital Signs Vital signs: Vital Signs - 8 hr 05/06/24 11:05 05/06/24 11:21 05/06/24 11:22 Temperature 97.3 F L Pulse Rate 77 70 Respiratory Rate 16 Blood Pressure 143/89 H 178/92 H Pulse Oximetry 100 100 Oxygen Delivery Method Room Air 05/06/24 11:22 05/06/24 11:30 05/06/24 11:30 Temperature Pulse Rate 70 71 Respiratory Rate 13 Blood Pressure 183/100 H Pulse Oximetry 99 99 Oxygen Delivery Method 05/06/24 12:00 05/06/24 12:00 05/06/24 12:30 Temperature Pulse Rate 77 Respiratory Rate 15 Blood Pressure 183/91 H 183/93 H Pulse Oximetry 100 Oxygen Delivery Method 05/06/24 12:30 05/06/24 12:45 05/06/24 12:45 Temperature Pulse Rate 82 82 Respiratory Rate 16 16 Blood Pressure 195/106 H 201/108 H Pulse Oximetry 99 97 Oxygen Delivery Method MDM - Abdominal Pain Lab Data 05/06/24 11:30 05/06/24 11:30 Labs: Lab Results 05/06/24 05/06/24 Range/Units 11:30 17:05 WBC 4.4 L (4.5-11.0) X10^3/uL RBC 4.25 (4.0-5.2) X10^6/uL Hgb 12.9 (12.0-16.0) g/dL Hct 38.0 (36-46) % MCV 89.5 (80-100) fL MCH 30.2 (26-34) PG MCHC 33.8 (30-36) % RDW 15.3 H (11.6-14.8) % Plt Count 80 L (150-400) X10^3/uL Neut % (Auto) 55.8 (50-75) % Lymph % (Auto) 29.3 (25-40) % Smith % (Auto) 10.5 (3-14) % Eos % (Auto) 2.3 (2-4) % Baso % (Auto) 2.1 H (0-2) % Neut # (Auto) 2500 (3358-2321) /uL Lymph # (Auto) 1300 (2787-8442) /uL Smith # (Auto) 500 (0-900) /uL Eos # (Auto) 100 (0-450) /uL Baso # (Auto) 100 (0-100) /uL Sodium 140 (137-145) mmol/L Potassium 3.5 (3.4-5.1) mmol/L Chloride 105 (98-107) mmol/L Carbon Dioxide 24 (22-32) mmol/L BUN 16 (7-17) mg/dL Creatinine 0.61 (0.52-1.04) mg/dL Estimated GFR > 60 (>60) mL/min BUN/Creatinine Ratio 26.2 H (6-22) Glucose 101 (80-110) mg/dL Calcium 9.3 (8.4-10.2) mg/dL Total Bilirubin 1.0 (0.2-1.3) mg/dL AST 148 H (14-36) IU/L ALT 113 H (<35) IU/L Alkaline Phosphatase 180 H (38-126) U/L Total Protein 7.4 (6.3-8.2) g/dL Albumin 4.2 (3.5-5.0) g/dL Globulin 3.2 (1.7-4.1) g/dL Albumin/Globulin Ratio 1.3 (1.0-2.8) Lipase 184 (23-300) U/L Urine Color Yellow Urine Appearance Clear Urine pH 6.5 (4.5-8.0) Ur Specific [place] 1.015 (1.000-1.035) Urine Protein Negative (Negative) Urine Glucose (UA) Negative (Negative) g/dL Urine Ketones Negative (NEGATIVE) Urine Occult Blood Negative (Negative) Urine Nitrate Negative (Negative) Urine Bilirubin Negative (NEGATIVE) Urine Urobilinogen 4.0 H (0.2) E.U./dL Ur Leukocyte Esterase Negative (NEGATIVE) Urine RBC None seen (0-5/HPF) Urine WBC 0-1/hpf (0-5/HPF) Ur Squamous Epith Cells 0-1 /hpf D (0-5/HPF) Urine Bacteria None seen (None) Ur Culture Indicated? Cult not indicated Vol Urine Centrifuged 10ml (spun) Imaging Data CT scan - abdomen/pelvis: Radiologist's Impression: [address] [address] [address] Scan Report Signed Patient: Gloria Mancera MR#: [id number] : 1960 Acct:[id number] Age/Sex: 63 / F Date of Service: 05/06/24 Loc: ED Accession Number: [id number] Procedure: CT abdomen pelvis w con Ordering Provider: Maurice Aroryo MD PROCEDURE: CT ABDOMEN PELVIS W CON INDICATIONS: IV contrast only/generalized abdominal pain TECHNIQUE: After the administration of intravenous contrast, axial sections acquired from the lung bases to the pubic symphysis. Coronal and sagittal reformats were performed. For radiation dose reduction, the following was used: automated exposure control, adjustment of mA and/or kV according to patient size. COMPARISON: [facility], MR, MR ABDOMEN LIVER PROTOCOL, 07/25/2023, 10:24. [facility], CT, CT ABDOMEN PELVIS W CON, 12/07/2020, 12:40. FINDINGS: Image quality: Diagnostic Lower chest: Emphysema at the lung bases. There are small pulmonary nodules and presumed granulomas. Consider lung cancer screening enrollment/yearly chest CT. Normal heart size. Coronary calcifications. Periesophageal varices Liver: Cirrhotic liver contour Gallbladder and biliary system: Cholelithiasis. Mild gallbladder distention. No pathologic biliary dilation Pancreas: Nondilated Spleen: Splenomegaly Adrenals: No discrete nodules Kidneys: No solid mass. No hydronephrosis. Vessels and lymph nodes: Portal venous varices are present. There are mildly enlarged periportal lymph nodes and gastrohepatic lymph nodes as before. These are probably reactive to chronic liver disease. No abdominal aortic aneurysm. Bowel and peritoneum: No small bowel obstruction. Small ascites. Colonic diverticula are present There is mild wall thickening at the distal ileum. Overall moderate fecal loading. Nondilated appendix. Body wall: Small fat containing umbilical hernia. Pelvis: Bladder is unremarkable. Reproductive organs are unremarkable on limited CT evaluation. Bones: No aggressive appearing osseous finding. IMPRESSION: Overall moderate fecal loading. No small bowel obstruction. Mild wall thickening seen at the distal ileum possibly congestive enteropathy versus infectious/inflammatory ileitis. Small ascites. Splenomegaly. Portal venous varices. Cirrhotic liver contour. Recommend future HCC screening. Gallstones and distended gallbladder. Consider sonographic correlation. Other findings above. Dictated by: Chad Sosa M.D. on 05/06/2024 at 12:56 Approved by: Chad Sosa M.D. on 05/06/2024 at 13:02 US - abdomen: Radiologist's Impression: [address] [address] Ultrasound Report Signed Patient: Gloria Mancera MR#: [id number] : 1960 Acct:[id number] Age/Sex: 63 / F Date of Service: 05/06/24 Loc: ED Accession Number: [id number] Procedure: US abdomen limited Ordering Provider: Maurice Arroyo MD PROCEDURE: US ABDOMEN LIMITED INDICATIONS: Abdominal pain/attention gallbladder TECHNIQUE: Real-time scanning was performed of the abdominal and retroperitoneal organs, with image documentation. COMPARISON: [facility], , US ABDOMEN LIMITED, 06/18/2023, 13:40. FINDINGS: Liver: Liver is normal in size and homogeneous in echotexture. Gallbladder: Multiple nonmobile stones are noted in gallbladder lumen measures up to 9 millimeter in size. No gallbladder wall thickening or pericholecystic fluid. No sonographic Nguyen sign. Biliary ducts: Intrahepatic bile ducts are non-dilated. Extrahepatic bile duct caliber measures 6.0 mm. Normal is 6-7 mm or less in diameter, or 10 mm or less post-cholecystectomy. Pancreas: Visualized portions of the pancreas are sonographically normal. Miscellaneous: No free abdominal fluid. IMPRESSION: Cholelithiasis without sonographic evidence of acute cholecystitis. No biliary ductal dilatation. Dictated by: Umer Negron M.D. on 05/06/2024 at 15:15 Approved by: Umer Negron M.D. on 05/06/2024 at 15:16 MDM Narrative Medical decision making narrative: Patient here for recurrent abdominal pain. It is generalized upper and lower and bilateral. Has bloated feeling. Nothing makes it better or worse. No chest pain no back pain. No urinary complaints. Patient took a cab here from work. Patient still has her gallbladder and appendix. Has not try any medications to make it better. Is not on any antacids. Eating or drinking does not make it worse. Patient in no distress at this time. Resting comfortably. After history and exam, CBC CMP lipase EKG CT abdomen pelvis Protonix normal saline. Patient in no pain at this time. Does not want anything for medication MDM Medical records reviewed: No recent visit for this complaint Differential considered: Includes but not limited to gastritis pancreatitis bowel obstruction colitis cholelithiasis cholecystitis appendicitis Lab Test results independently reviewed as above. Pertinent findings: WBC 4.4 hemoglobin 12.9 sodium 140 potassium 3.5 total bilirubin 1.0 AST 148 ALT 113 alkaline phosphatase 180 Independently reviewed EKG sinus rhythm rate [address] elevation or depression Imaging studies independently reviewed: CT abdomen pelvis Overall moderate fecal loading. No small bowel obstruction. Mild wall thickening seen at the distal ileum possibly congestive enteropathy versus infectious/inflammatory ileitis. Ultrasound abdomen cholelithiasis without acute cholecystitis Small ascites. Splenomegaly. Portal venous varices. Cirrhotic liver contour. Recommend future HCC screening. Gallstones and distended gallbladder. Consultations: 3:41 p.m.. Spoke with general surgeon, dr sue, patient can follow up in the office in the clinic. Patient should follow up with primary care regarding liver enzymes as well with given history hepatitis-C. Patient in no distress. No admission or surgery indicated at this time. Treatments: Protonix normal saline Re-evaluations: 3:50 p.m.. Updated patient results. Patient has been resting comfortably. Reviewed with her laboratory results liver results and ultrasound CT scan results. Referral for general surgery provided. Return precautions reviewed. Reviewed with her this could be hepatitis related or the gallbladder. No prescriptions are indicated at this time. She does have a family doctor to follow up with guarding or blood pressure and her hepatitis. She did not get treated for hepatitis-C but they are and talk about getting it treated. Blood pressure 169/94. Patient will follow up with her primary care for blood pressure recheck Discussion: Appropriate for discharge home exam is reassuring. Return precautions reviewed with patient. Not toxic at discharge. Patient has been resting here comfortably. General surgery was contacted. No prescriptions are indicated this time. She desires discharge home. Diagnosis: Abdominal pain cholelithiasis Discharge Plan Departure Patient Disposition: Home Clinical Impression: Abdominal pain Qualifiers: Abdominal location: generalized Qualified Code(s): R10.84 - Generalized abdominal pain Cholelithiasis Qualifiers: Cholelithiasis location: gallbladder Cholecystitis presence: without cholecystitis Biliary obstruction: without biliary obstruction Qualified Code(s): K80.20 - Calculus of gallbladder without cholecystitis without obstruction Instructions: DI for Gallstones, DI for Abdominal Pain-Adult Activity Restrictions/Additional Instructions: Please see your family doctor for recheck your blood pressure also recheck of your liver blood work that was done today and CT scan ultrasound results. You do need to have your hepatitis re-evaluated. Please call provided general surgery office today regarding the gallstones in the gallbladder. This could be contributory to your liver blood work results. No fried fatty greasy foods or spicy foods. No alcohol use. Return if worse if any questions or concerns Prescriptions: No Action No Known Home Medications Referrals: Beau Sue MD [Physician] - Isidro Mendez DO [Primary Care Provider] - Stand Alone Forms: Patient Portal/API/Survey, Work Release Note
[2024-05-06 11:54] LABS: Alanine Aminotransferase 113 IU/L (<35); Albumin 4.2 g/dL (3.5-5.0); Albumin Globulin Ratio 1.3 (1.0-2.8); Alkaline Phosphatase 180 U/L (38-126); Aspartate Aminotransferase 148 IU/L (14-36); BUN Creatinine Ratio 26.2 (6-22); Blood Urea Nitrogen 16 mg/dL (7-17); Calcium 9.3 mg/dL (8.4-10.2); Carbon Dioxide 24 mmol/L (22-32); Estimated Glomerular Filt Rate > 60 mL/min (>60); Globulin 3.2 g/dL (1.7-4.1); Glucose 101 mg/dL (80-110); HEMOLYSIS 31 (0-50); Lipase 184 U/L (23-300); Potassium 3.5 mmol/L (3.4-5.1); Sodium 140 mmol/L (137-145); Total Protein 7.4 g/dL (6.3-8.2)
[2024-05-06 12:00] LABS: Chloride 105 mmol/L (98-107)
[2024-05-06] MEDS: SODIUM CHLORIDE 0.9% 1,000 ML 1000 ML IV (12:07)
[2024-05-06] MEDS: PANTOPRAZOLE 40 MG VIAL IV (12:08)
--- NOTE | 2024-05-06 14:09 | DI.US.S_ITS ---
PROCEDURE: US ABDOMEN LIMITED INDICATIONS: Abdominal pain/attention gallbladder TECHNIQUE: Real-time scanning was performed of the abdominal and retroperitoneal organs, with image documentation. COMPARISON: [facility], , US ABDOMEN LIMITED, 06/18/2023, 13:40. FINDINGS: Liver: Liver is normal in size and homogeneous in echotexture. Gallbladder: Multiple nonmobile stones are noted in gallbladder lumen measures up to 9 millimeter in size. No gallbladder wall thickening or pericholecystic fluid. No sonographic Nguyen sign. Biliary ducts: Intrahepatic bile ducts are non-dilated. Extrahepatic bile duct caliber measures 6.0 mm. Normal is 6-7 mm or less in diameter, or 10 mm or less post-cholecystectomy. Pancreas: Visualized portions of the pancreas are sonographically normal. Miscellaneous: No free abdominal fluid. IMPRESSION: Cholelithiasis without sonographic evidence of acute cholecystitis. No biliary ductal dilatation. Dictated by: Umer Negron M.D. on 05/06/2024 at 15:15 Approved by: Umer Negron M.D. on 05/06/2024 at 15:16
[2024-05-06 17:14] LABS: Appearance Urine UA CLEAR; Bilirubin Urine UA NEGATIVE (NEGATIVE); Color Urine UA YELLOW; Glucose Urine UA NEGATIVE (Negative); Ketones Urine UA NEGATIVE (NEGATIVE); Leukocyte Esterase Urine UA NEGATIVE (NEGATIVE); Nitrite Urine UA NEGATIVE (Negative); Occult Blood Urine UA NEGATIVE (Negative); Protein Urine UA NEGATIVE (Negative); Specific Gravity Urine UA 1.015 (1.000-1.035)
[2024-05-06 17:28] LABS: pH Urine UA 6.5 (4.5-8.0)
[2024-05-06 17:29] LABS: Bacteria Urine None Seen; Culture Indicated Urine Cult Not Indicated; RBC Urine None Seen (0-5/HPF); Squamous Epithelial Cell Urine 0-1 /HPF (0-5/HPF); Urine Volume 10mL (spun); WBC Urine 0-1/HPF (0-5/HPF)
== END 2024-05-06 17:10 | disposition home or self-care (01) ==
PROVIDERS: Emergency Provider Emergency Medicine; Family Provider Family Medicine; PCP Family Medicine
DX: R10.84 Generalized abdominal pain (principal); K80.20 Calculus of gallbladder without cholecystitis without obstruction
CPT/HCPCS: 74177; 76705; 80053; 81001; 83690; 85025; 93005; 93010; 96361; 96374; 99283; 99284; J2470; Q9967

== ENCOUNTER → 2024-06-03 15:09 | Outpatient (CLI) | payer OTHER, SELFPAY ==
[2023-10-24 12:56] VITALS: BMI 21.3
[2024-06-03 16:34] LABS: TSH w/ Reflex to FT4 2.22 uIU/mL (0.47-4.68)
== END ==
PROVIDERS: Family Provider Family Medicine; PCP Family Medicine; Referring Provider Family Medicine; Visit Provider Family Medicine
DX: L65.9 Nonscarring hair loss, unspecified (principal)
CPT/HCPCS: 36415; 84443

== ENCOUNTER 2024-07-13 17:50 | Emergency (ER) | payer OTHER, SELFPAY ==
[2023-10-24 12:56] VITALS: BMI 21.3
[2024-07-13 17:56] VITALS: BP 148/93; PULSE 100; RESP 20; TEMP 37; O2SAT 100; BMI 21.7
--- NOTE | 2024-07-13 18:02 | DI.RAD.S_ITS ---
PROCEDURE: XR HIP W PEL IF DONE RT 2V INDICATIONS: glf, hip pain TECHNIQUE: AP pelvis with lateral view of the right hip. COMPARISON: None. FINDINGS: Bones: No acute fractures or dislocations. Pelvic ring appears intact. No suspicious bony lesions. Soft tissues: The visualized bowel gas pattern is normal. No suspicious soft tissue calcifications. IMPRESSION: No acute osseous abnormality. If there is continued clinical concern or persistent symptoms, repeat radiographs or cross-sectional imaging (e.g. CT, MRI) may be helpful for further evaluation. Approved by: Gary Ladd M.D. on 07/13/2024 at 17:26
[2024-07-13 18:44] VITALS: BP 163/87; PULSE 86; RESP 16; O2SAT 98
--- NOTE | 2024-07-13 18:52 | ED.LOWEXIN ---
HPI - Extremity Injury (Lower) General Chief Complaint: Extremity Injury, Lower Stated Complaint: R Hip Pain Time Seen by Provider: 07/13/24 18:43 Mode of arrival: Ambulatory History of Present Illness HPI Narrative: 64-year-old female presents with right hip pain for the past few days after she fell awkwardly while cleaning. She is able to walk and has been using Excedrin with minimal relief of her symptoms. Patient denies chest pain, headache, dizziness, blurred vision, neck pain, chest pain, shortness of breath, dyspnea on exertion, and leg swelling. Other than what is stated 14 point review of system is negative. Related Data Previous Rx's Medication Instructions Recorded methocarbamol 500 mg tablet 500 mg PO TID PRN pain and spasm 07/13/24 #30 tabs Allergies Allergy/AdvReac Type Severity Reaction Status Date / Time procaine [From NOVOCAIN] Allergy Mild RASH Verified 06/03/24 14:33 Sulfa (Sulfonamide Allergy Vomiting Verified 06/03/24 14:33 Antibiotics) Review of Systems Review of Systems ROS Unobtainable: All systems reviewed & are unremarkable except as noted in HPI and below Patient History Medical History (Updated 07/13/24 @ 19:03 by Mando Tamayo, DO) Mass of right hand Hair thinning Ileitis Low back pain Right elbow pain Hx of hepatitis C Hepatitis C antibody positive in blood Wheezing HUITRON (dyspnea on exertion) Chills Malaise and fatigue Exposure to cat feces Nonscarring hair loss, unspecified Low density lipoprotein (LDL) below 100mg/dL Small bowel obstruction Chronic pain of lower extremity, bilateral Back stiffness Chronic right-sided thoracic back pain Vitamin B12 deficiency Morning joint stiffness of multiple sites UTI (urinary tract infection) Bacterial vaginosis Acute pain of left knee Vagina, candidiasis Chronic pain of right upper extremity Chronic pain of right wrist Alternating constipation and diarrhea Rash and nonspecific skin eruption Alcoholic cirrhosis of liver Transaminitis Abdominal pain Upper extremity somatic dysfunction Foot abscess, left Sinusitis Right anterior knee pain Carbon monoxide exposure Family history of cerebral aneurysm Segmental and somatic dysfunction of abdomen and other regions Pelvic somatic dysfunction Somatic dysfunction of sacral spine Segmental and somatic dysfunction of lumbar region Segmental and somatic dysfunction of thoracic region Cervical somatic dysfunction Cranial somatic dysfunction Vision disorder Skin problem Allergies Depression Headache Shoulder pain Foot pain Chicken pox Panic anxiety syndrome Tension headache, chronic Hepatitis C Hepatitis A Anxiety Circulation problem Chronic neck and back pain Tobacco abuse disorder Surgical History H/O tubal ligation Hx of tonsillectomy No significant past surgical history Family History Father No problems noted. Mother Pneumonia Social History household members: friend(s) tobacco type: vaping alcohol intake frequency: holidays/special occasions only Exam Narrative Exam Narrative: GENERAL: [64] year old patient appears stated age. Well-developed patient, in mild distress. HEAD: Atraumatic. Normocephalic. EYES: Pupils equal round and reactive. Extraocular motions intact. No scleral icterus. No injection or drainage. NECK: Trachea midline. Non tender CARDIOVASCULAR: Regular rate and rhythm without murmurs, gallops, or rubs. RESPIRATORY: Clear to auscultation. Breath sounds equal bilaterally. No wheezes, rales, or rhonchi. GASTROINTESTINAL: Abdomen soft, non-tender, nondistended. EXTREMITIES: No edema or joint tenderness. R hip TTP but no obvious deformity, hip flexion extension adduction abduction intact motor sensory intact +2 DP +2 PT cap refill less than 2nd BACK: Nontender without deformity or crepitance. No flank tenderness. NEURO: AOx3. GCS 15 nonfocal neuro exam SKIN: No rash or erythema of visible areas Initial Vital Signs Initial Vital Signs: Vital Signs Temperature 98.6 F 07/13/24 17:56 Pulse Rate 100 H 07/13/24 17:56 Respiratory Rate 20 07/13/24 17:56 Blood Pressure 148/93 H 07/13/24 17:56 Pulse Oximetry 100 07/13/24 17:56 Oxygen Delivery Method Room Air 07/13/24 17:56 Course Orders Ordered: ED Orders 07/13/24 18:02 XR hip w pel RT 2V Stat Vital Signs Vital signs: Vital Signs - 8 hr 07/13/24 17:56 07/13/24 18:44 Temperature 98.6 F Pulse Rate 100 H 86 Respiratory Rate 20 16 Blood Pressure 148/93 H 163/87 H Pulse Oximetry 100 98 Oxygen Delivery Method Room Air Room Air MDM - Extremity Injury (Lower) Imaging Data Extremity x-ray #1: Radiologist's Impression: [address] [address] XRay Report Signed Patient: Gloria Mancera MR#: [id number] : 1960 Acct:[id number] Age/Sex: 64 / F Date of Service: 07/13/24 Loc: ED Accession Number: [id number] Procedure: XR hip w pel RT 2V Ordering Provider: Valerio Paniagua MD PROCEDURE: XR HIP W PEL IF DONE RT 2V INDICATIONS: glf, hip pain TECHNIQUE: AP pelvis with lateral view of the right hip. COMPARISON: None. FINDINGS: Bones: No acute fractures or dislocations. Pelvic ring appears intact. No suspicious bony lesions. Soft tissues: The visualized bowel gas pattern is normal. No suspicious soft tissue calcifications. IMPRESSION: No acute osseous abnormality. If there is continued clinical concern or persistent symptoms, repeat radiographs or cross-sectional imaging (e.g. CT, MRI) may be helpful for further evaluation. MDM Narrative Medical decision making narrative: Vital signs, nurse triage note, medication list, previous ER visits, and x-ray reviewed. X-ray showed no acute osseous abnormality. Differential diagnosis includes hip fracture, dislocation, contusion, sprain, trochanteric bursitis. DC home on methocarbamol. Discharge Plan Departure Patient Disposition: Home Clinical Impression: Hip strain Qualifiers: Encounter type: initial encounter Laterality: right Qualified Code(s): S76.011A - Strain of muscle, fascia and tendon of right hip, initial encounter Instructions: DI for Muscle Strain Activity Restrictions/Additional Instructions: Return with new or worsening symptoms. Take your medicines directed. Follow up with PCP in 1-2 weeks for re-evaluation. Prescriptions: New methocarbamol 500 mg tablet 500 mg PO TID PRN (Reason: pain and spasm) Qty: 30 0RF Referrals: Isidro Mendez DO [Primary Care Provider] - Stand Alone Forms: Patient Portal/API/Survey
[2024-07-13] MEDS: IBUPROFEN 400 MG TABLET 800 MG PO (19:10)
[2024-07-13] MEDS: CYCLOBENZAPRINE 10 MG TABLET 5 MG PO (19:10)
[2024-07-13] MEDS: ACETAMINOPHEN 325 MG TABLET 650 MG PO (19:11)
[2024-07-13 19:19] VITALS: BP 167/88; PULSE 93; RESP 18; TEMP 36.8; O2SAT 97
== END 2024-07-13 19:21 | disposition home or self-care (01) ==
PROVIDERS: Emergency Provider Family Medicine; Family Provider Family Medicine; PCP Family Medicine
DX: S76.011A Strain of muscle, fascia and tendon of right hip, initial encounter (principal); W18.30XA Fall on same level, unspecified, initial encounter
CPT/HCPCS: 73502; 99283

== ENCOUNTER 2024-07-28 11:37 | Emergency (ER) | payer OTHER, SELFPAY ==
[2023-10-24 12:56] VITALS: BMI 21.3
[2024-07-28 11:44] VITALS: BP 137/85; PULSE 97; RESP 20; TEMP 36.6; O2SAT 96; BMI 22.6
--- NOTE | 2024-07-28 12:22 | ED.BACK ---
HPI - Back Pain/Injury <Prashanth Miller PA-C - Last Filed: 07/29/24 13:30> General Chief Complaint: Back Pain/Injury Stated Complaint: Wants Xrays on lungs and ribs x 6 days Time Seen by Provider: 07/28/24 11:53 Source: patient History of Present Illness HPI Narrative: 64-year-old female with past medical history emphysema presents to the ED with 3 weeks of lower rib pain. Patient states that the pain goes from the front lower ribs and radiates to the back. Patient states that she experienced a mechanical fall 3 weeks ago, following which her pain had started. Patient saw a chiropractor about a week ago which made the pain worse. Patient is concerned that she might have pneumonia or broken ribs. Patient is breathing comfortably. No fever, chills, nausea, vomiting, lightheadedness, dizziness, syncope. Related Data Previous Rx's ?Medication ?Instructions ?Recorded methocarbamol 500 mg tablet 500 mg PO TID PRN pain and spasm 07/13/24 #30 tabs ipratropium 20 mcg-albuterol 100 1 puff inhalation Q4H PRN 07/28/24 mcg/actuation mist for inhalation shortness of breath or wheezing #4 grams prednisone 20 mg tablet See Rx Instructions .Route 07/28/24 .COMPLEX #11 tabs Allergies Allergy/AdvReac Type Severity Reaction Status Date / Time procaine (From [place]) Allergy Mild RASH Verified 07/28/24 11:44 Sulfa (Sulfonamide Allergy Vomiting Verified 07/28/24 11:44 Antibiotics) Review of Systems <Prashanth Miller PA-C - Last Filed: 07/29/24 13:30> Constitutional Constitutional: Denies chills, Denies fatigue, Denies fever(s), Denies frequent falls, Denies lethargy and Denies weakness Eyes Eyes: Denies change in vision, Denies eye discharge, Denies irritation and Denies loss of vision ENT Ears, Nose, Mouth, and Throat: Denies change in voice, Denies dizziness, Denies neck pain, Denies sore throat and Denies throat swelling Cardiovascular Cardiovascular: Denies chest pain, Denies irregular heart rhythm, Denies lightheadedness, Denies palpitations, Denies dyspnea, Denies dyspnea on exertion and Denies orthopnea Respiratory Respiratory: Reports cough, Denies dyspnea, Denies dyspnea on exertion and Denies wheezing Gastrointestinal Gastrointestinal: Denies abdominal pain, Denies change in bowel habits, Denies diarrhea, Denies nausea and Denies vomiting Musculoskeletal Musculoskeletal: Denies neck pain and Denies numbness Comments: Lower rib pain Integumentary/Breasts Skin/Breast: Denies pruritus, Denies erythema, Denies rash and Denies wounds Neurologic Neurologic: Denies behavioral changes, Denies confusion, Denies dizziness, Denies frequent falls, Denies loss of vision, Denies numbness and Denies weakness Psychiatric Psychiatric: Denies anxiety, Denies behavioral changes, Denies confusion, Denies depression, Denies homicidal ideation and Denies suicidal ideation Endocrine Endocrine: Denies fatigue, Denies flushing and Denies palpitations Hematologic/Lymphatic Hematologic/Lymphatic: Denies easy bruising Allergic/Immunologic Allergic/Immunologic: Denies urticaria, Denies throat swelling and Denies wheezing Patient History <Prashanth Miller PA-C - Last Filed: 07/29/24 13:30> Medical History Mass of right hand Hair thinning Ileitis Low back pain Right elbow pain Hx of hepatitis C Hepatitis C antibody positive in blood Wheezing HUITRON (dyspnea on exertion) Chills Malaise and fatigue Exposure to cat feces Nonscarring hair loss, unspecified Low density lipoprotein (LDL) below 100mg/dL Small bowel obstruction Chronic pain of lower extremity, bilateral Back stiffness Chronic right-sided thoracic back pain Vitamin B12 deficiency Morning joint stiffness of multiple sites UTI (urinary tract infection) Bacterial vaginosis Acute pain of left knee Vagina, candidiasis Chronic pain of right upper extremity Chronic pain of right wrist Alternating constipation and diarrhea Rash and nonspecific skin eruption Alcoholic cirrhosis of liver Transaminitis Abdominal pain Upper extremity somatic dysfunction Foot abscess, left Sinusitis Right anterior knee pain Carbon monoxide exposure Family history of cerebral aneurysm Segmental and somatic dysfunction of abdomen and other regions Pelvic somatic dysfunction Somatic dysfunction of sacral spine Segmental and somatic dysfunction of lumbar region Segmental and somatic dysfunction of thoracic region Cervical somatic dysfunction Cranial somatic dysfunction Vision disorder Skin problem Allergies Depression Headache Shoulder pain Foot pain Chicken pox Panic anxiety syndrome Tension headache, chronic Hepatitis C Hepatitis A Anxiety Circulation problem Chronic neck and back pain Tobacco abuse disorder Surgical History H/O tubal ligation Hx of tonsillectomy No significant past surgical history Family History Father No problems noted. Mother Pneumonia Social History household members: friend(s) tobacco type: vaping alcohol intake frequency: holidays/special occasions only Exam <Prashanth Miller PA-C - Last Filed: 07/29/24 13:30> Narrative Exam Narrative: Const General:?cooperative, healthy appearing and comfortable [facility] Head:?normal to inspection Ears:?hearing grossly normal bilaterally Nose:?external nose normal Face and sinus:?normal facial exam and sinuses nontender Mouth:?oral mucosae normal Throat:?posterior oropharynx normal Eyes General:?appearance normal, both eyes and all related structures Neck Neck:?normal visual inspection and no lymphadenopathy noted Resp Effort & Inspection:?normal respiratory effort Auscultation:?clear to auscultation bilaterally Cardio Rate:?regular rate Rhythm:?regular rhythm Musculoskeletal There is some tenderness to palpation of the right-sided lower ribs anteriorly. No midline tenderness to palpation. No paraspinal tenderness to palpation. Neurovascularly intact. Neuro General:?patient alert, patient awake and patient oriented x3 Initial Vital Signs Initial Vital Signs: Vital Signs Temperature 97.9 F 07/28/24 11:44 Pulse Rate 97 H 07/28/24 11:44 Respiratory Rate 20 07/28/24 11:44 Blood Pressure 137/85 07/28/24 11:44 Pulse Oximetry 96 07/28/24 11:44 Oxygen Delivery Method Room Air 07/28/24 11:44 <Maurice Arroyo MD - Last Filed: 08/05/24 06:56> Initial Vital Signs Initial Vital Signs: Vital Signs Temperature 97.9 F 07/28/24 11:44 Pulse Rate 97 H 07/28/24 11:44 Respiratory Rate 20 07/28/24 11:44 Blood Pressure 137/85 07/28/24 11:44 Pulse Oximetry 96 07/28/24 11:44 Oxygen Delivery Method Room Air 07/28/24 11:44 Course <Prashanth Miller PA-C - Last Filed: 07/29/24 13:30> Vital Signs Vital signs: Vital Signs - 8 hr 07/28/24 11:44 Temperature 97.9 F Pulse Rate 97 H Respiratory Rate 20 Blood Pressure 137/85 Pulse Oximetry 96 Oxygen Delivery Method Room Air <Maurice Arroyo MD - Last Filed: 08/05/24 06:56> Vital Signs Vital signs: Vital Signs - 8 hr 07/28/24 11:44 Temperature 97.9 F Pulse Rate 97 H Respiratory Rate 20 Blood Pressure 137/85 Pulse Oximetry 96 Oxygen Delivery Method Room Air MDM - Back Pain/Injury <Prashanth Miller PA-C - Last Filed: 07/29/24 13:30> MDM Narrative Medical decision making narrative: 64-year-old female with past medical history emphysema presents to the ED with 3 weeks of lower rib pain. Given mechanical fall, and tenderness to palpation, etiology more likely musculoskeletal versus cardiac. Patient does have a history of emphysema and is reporting a cough. Possible COPD exacerbation. Will obtain CT scan of chest. Chest CT shows no acute displaced rib fractures. No aggressive appearing intraosseous lesions. Advanced bullous disease in bilateral upper lobes worse on the right side. [id number] centrilobular emphysema. Dependent atelectasis/scarring in periphery of bilateral lower lungs. No pleural effusion or pneumothorax. There is cardiomegaly, no pericardial effusion. No mediastinal or hilar lymphadenopathy. Clinical correlation to CT results most consistent with a COPD exacerbation. Prescribed inhaler, steroids, antibiotics. Recommend follow-up with PCP as soon as possible. ED return precautions discussed with patient. Patient verbalized understanding. Medical records reviewed: Yes Discharge Plan Departure Patient Disposition: Home Clinical Impression: Cough Qualifiers: Cough type: unspecified Qualified Code(s): R05.9 - Cough, unspecified Instructions: DI for Emphysema Activity Restrictions/Additional Instructions: You were evaluated in the emergency department today for rib pain. Your CT scan did not show any fractures or dislocations. Your CT scan does show emphysema which is consistent with your prior imaging. Since you also have a cough, it is possible you are experiencing a emphysema exacerbation. You are being prescribed an inhaler, antibiotics and steroid. Please take those as prescribed. Please also follow-up with your PCP as soon as possible. Return to the ED if you have worsening symptoms, trouble breathing. Prescriptions: New prednisone 20 mg tablet See Rx Instructions .ROUTE .COMPLEX Qty: 11 0RF Rx Instructions: Take 60 mg by mouth on day 1; take 40 mg by mouth on days 2-5 ipratropium-albuterol 20-100 mcg/actuation mist 1 puff inhalation Q4H PRN (Reason: shortness of breath or wheezing) Qty: 4 0RF No Action methocarbamol 500 mg tablet 500 mg PO TID PRN (Reason: pain and spasm) Qty: 30 0RF Referrals: Isidro Mendez DO [Primary Care Provider, Family Practice] Stand Alone Forms: Patient Portal/API ED Sign-out <Maurice Arroyo MD - Last Filed: 08/05/24 06:56> Cosign ED Attending Neil Attestation: I was immediately available in the department for consultation. ?This documentation has been reviewed and I agree with assessment and plan. Supervised by Maurice Arroyo MD
--- NOTE | 2024-07-28 12:35 | DI.CT.S_ITS ---
PROCEDURE: CT CHEST WO CON INDICATIONS: rib pain TECHNIQUE: Noncontrast 5 mm thick sections acquired from the pulmonary apices to the posterior costophrenic angles. 1 mm lung window, 5 mm thick coronal and sagittal and 7 mm axial MIP reformats were then acquired. For radiation dose reduction, the following was used: automated exposure control, adjustment of mA and/or kV according to patient size. COMPARISON: None. FINDINGS: Image quality: Diagnostic. Lower Neck: No enlarged lymph nodes. Thyroid: No thyroid nodules which require sonographic follow up, per consensus guidelines. Axillae: No enlarged lymph nodes. Chest Wall: Unremarkable. Bones: No aggressive appearing bony lesions. No acute displaced rib fracture is noted. Lungs and Pleura: No pneumothorax or pleural effusions. Advanced bullous disease in bilateral upper lobes near apices are seen. Mild to moderate centrilobular emphysema is also seen. Dependent atelectasis/scarring in periphery of bilateral lung bases. Calcified granuloma is noted in lateral aspect of right lower lobe series 4, image 102. Heart: Heart size is enlarged. No pericardial effusion. Thoracic Vessels: The aorta and pulmonary arteries demonstrate normal size. Mediastinum and Sweta: No enlarged lymph nodes. Esophagus: No wall thickening. No hiatal hernia. Upper Abdomen: Visualized upper abdomen solid organs and bowel loops appear normal. IMPRESSION: 1. No acute displaced rib fractures. No aggressive appearing intraosseous lesions. 2. Advanced bullous disease in bilateral upper lobes worse on the right side. [id number] centrilobular emphysema. Dependent atelectasis/scarring in periphery of bilateral lower lung watson. No pleural effusion or pneumothorax. 3. Cardiomegaly, no pericardial effusion. No mediastinal or hilar lymphadenopathy. Dictated by: Umer Negron M.D. on 07/28/2024 at 13:24 Approved by: Umer Negron M.D. on 07/28/2024 at 13:33
[2024-07-28 14:27] VITALS: BP 170/110; PULSE 81; RESP 20; O2SAT 94
== END 2024-07-28 14:28 | disposition home or self-care (01) ==
PROVIDERS: Emergency Provider Student in an Organized Health Care Education/Training Program; Family Provider Family Medicine; PCP Family Medicine
DX: R05.9 Cough, unspecified (principal); R07.81 Pleurodynia
CPT/HCPCS: 71250; 99281; 99284